=== PATIENT | male | born 1945 | race Caucasian/White ===

== ENCOUNTER → 2025-05-15 | Outpatient (CLI) | payer MEDICARE, SELFPAY ==
--- NOTE | 2025-05-15 08:19 | CT_ITS ---
PROCEDURE: CHEST WITHOUT CONTRAST 05/15/2025 REASON FOR EXAM: FOLLOW UP TREATED LUNG CANCER TECHNIQUE: Chest CT without contrast. Coronal and Sagittal reconstruction series were provided. One or more dose reduction techniques were used (e.g., Automated exposure control, adjustment of the mA and/or kV according to patient size, use of iterative reconstruction technique RADIATION DOSE SUMMARY: DLP: 596.90 mGycm COMPARISON: CT chest dated 07/10/2024 and PET-CT dated February 06, 2025 FINDINGS: Hardware: Status post median sternotomy for CABG. Lymph nodes: Shotty mediastinal lymph nodes appear stable since previous exam. These are not pathologically enlarged by size criteria. Heart and Vasculature: Coronary arterial calcifications status post median sternotomy for CABG. Atherosclerosis of the aorta. No dissection or aneurysm. No pericardial effusion. Lungs and Airways: Emphysematous changes of the lung. Continued interval decrease in the peripheral 6 mm nodule in the right upper lobe with adjacent patchy airspace disease likely related to atelectasis or postradiation change. Reticular nodular opacity seen in the periphery of the lung consistent with underlying interstitial lung disease. No new pulmonary nodule seen. Pleura: No pneumothorax or effusion. Upper Abdomen: Unremarkable appearance of the liver. Calcified granulomata in the spleen. The adrenal glands pancreas and gallbladder normal. No retroperitoneal lymphadenopathy. No bowel obstruction. Osseous structures are intact. Bones: No destructive process CT/Chest without Contrast IMPRESSION: Significant interval decrease in the size of the nodule in the right upper lobe with adjacent parenchymal opacities new since previous exam and most likely related to post radiation change. Reading Location: [id number]
--- NOTE | 2025-05-15 08:19 | CT_ITS ---
PROCEDURE: CT SOFT TISSUE NECK WITHOUT CONTRAST 05/15/2025 REASON FOR EXAM: FOLLOW UP TREATED LUNG CANCER WITH NECK LN TECHNIQUE: Procedure Code: CTNE Modality: CT Procedure: SOFT TISSUE NECK WITHOUT CONTR One or more dose reduction techniques were used (e.g., Automated exposure control, adjustment of the mA and/or kV according to patient size, use of iterative reconstruction technique). RADIATION DOSE SUMMARY: DLP: 939.48 mGycm COMPARISON: Correlation with PET-CT 02/06/2025. CT chest 05/15/2025. FINDINGS: Nodular densities in the visualized posterior right upper lobe are redemonstrated with marginal subpleural reticular fibrotic changes, likely sequelae of radiation treatment. Stable compared with the most recent chest CT; see separate thorax and PET-CT reports for further details. No enlarged or morphologically suspicious cervical or upper mediastinal lymph nodes. No mass lesion. No active inflammatory process or soft tissue edema. The airway is widely patent and midline. Unremarkable orbital contents, with prior cataract surgery. Major salivary glands are normal and symmetric in appearance. Unremarkable thyroid. Atherosclerotic plaque at the carotid artery bifurcations and along the aortic arch. No acute or aggressive osseous abnormality. Sternotomy wires. Well-aerated paranasal sinuses and bilateral mastoid air cells. Mild multilevel degenerative changes of the cervicothoracic spine. CT/Soft Tissue Neck without Contr IMPRESSION: No evidence of recurrent malignancy in the neck. No lymphadenopathy. Stable nodular densities and postradiation subpleural reticular/fibrotic change s in the imaged right upper lobe. See separate thorax and PET-CT reports for further details. Reading Location: [facility]
--- OUTSIDE RECORDS SUMMARY | 2025-05-15 08:35 | XMS RPT_ITS | CCD ---
Author Organization [facility] Care Team Providers Care Edge Banding Off Bearer Name Role Phone MARLIN LANCASTER DO Primary Care Physician [phone] DAMARIS FOSTER DO Attending Unavailable MARLIN LANCASTER DO Primary Care Unavailable REILLY GUILLERMO Attending Unavailab le ANISHA RIOS, MARLIN Primary Care Unavailable REILLY GUILLERMO Attending Unavailab MARLIN Smith DO Primary Care Unavailable REILLY GUILLERMO Attending Unavailab MARLIN Smith DO Primary Care Unavailable CRISTIAN RIOS, DR OCAMPO Attending Unavailable MARLIN LANCASTER DO Primary Care Unavailable CRISTIAN RIOS, DR OCAMPO Attending Unavailable MARLIN LANCASTER DO Primary Care Unavailable Nii Rounding Nurse, Amos Unavailable Afia labvirgie Unavailable Primary Care Provider Unavailabl e MARLIN LANCASTER DO Primary Care Unavailable MARLIN LANCASTER DO Attending Unavailable MARLIN LANCASTER DO Primary Care Unavailable QIAN FAY MD, I Admitting Unavailable QIAN FAY MD, I Consulting Unavailable SUMEET MATOS, QIAN Haddad Attending Unavailable CATRACHITO ROBLEDO DO Consulting Unavailable NISH MARTINEZ MD Consulting Unavailable MARLIN LANCASTER DO Primary Care Unavailable QIAN FAY MD, I Attending Unavailable MARLIN LANCASTER DO Primary Care Unavailable MARLIN LANCASTER DO Attending Unavailable Anisha NOLEN DO, Michael A Primary Care Provider [phone] Bria Liu DO Unavailable [phone] Reilly Childs CNP Unavailable MARLIN LANCASTER IV Primary Care Unavailable YORDY VELAZQUEZ Attending Unavailable YORDY VELAZQUEZ Attending Unavailable Dr. Marlin Lancaster DO Primary Care Provider [phone] Dr. Bria Liu DO Attending Provider Dr. Bria Liu DO Referring Provider Dr. Marlin Lancaster DO Referring Provider [phone] Bria Liu Attending Unavailable Halko, Marlin Primary Care Unavailable Jack, Bria Attending Unavailable Jack, Bria Referring Unavailable Halko, Marlin Primary Care Unavailable Jack, Bria Attending Unavailable Halko, Marlin Primary Care Unavailable Halko, Marlin Referring Unavailable Jack, Bria Attending Unavailable Halko, Marlin Primary Care Unavailable Halko, Marlin Referring Unavailable Jack, Bria Referring Unavailable Jakc, Bria Attending Unavailable Halko, Marlin Primary Care Unavailable Jack, Bria Attending Unavailable Jack, Bria Referring Unavailable Halko, Marlin Primary Care Unavailable Jack, Bria Attending Unavailable Halko, Marlin Primary Care Unavailable Halko, Marlin Referring Unavailable Jack, Bria Attending Unavailable Halko, Marlin Referring Unavailable Halko, Marlin Primary Care Unavailable Jack, Bria Attending Unavailable Halko, Marlin Referring Unavailable Halko, Marlin Primary Care Unavailable Jack, Bria Attending Unavailable Halko, Marlin Primary Care Unavailable Morenita Stinson Attending Unavailable Halko, Marlin Primary Care Unavailable Jack, Bria Attending Unavailable Jack, Bria Referring Unavailable Halko, Marlni Primary Care Unavailable Jack, Bria Attending Unavailable Jack, Bria Referring Unavailable Halko, Marlin Primary Care Unavailable Jack, Bria Attending Unavailable Jack, Bria Referring Unavailable Halko, Marlin Primary Care Unavailable Jack, Bria Attending Unavailable Halko, Marlin Primary Care Unavailable HALKO DO, MARLIN Primary Care Unavailable HALKO DO, MARLIN Attending Unavailable REILLY GUILLERMO Attending Unavailab le HALKO DO, MARLIN Primary Care Unavailable HALKO DO, MARLIN Primary Care Unavailable HALKO DO, MARLIN Attending Unavailable HALKO DO, MARLIN Primary Care Unavailable LINK PERRY MD Attending Unavailable HALKO DO, MARLIN Primary Care Unavailable HALKO DO, MARLIN Attending Unavailable HALKO DO, MARLIN Primary Care Unavailable BRIA LIU DO Attending Unavailable HALKO DO, MARLIN Attending Unavailable HALKO DO, MARLIN Primary Care Unavailable HALKO DO, MARLIN Primary Care Unavailable HALKO DO, MARLIN Attending Unavailable Allergies Allergy Classification Reported Allergen(s) Allergy Type Date of Onset Reaction(s) Facility (20 sources) Contrast media; Translations: [contrast media (iodine-based)] Drug allergy Seizure [facility] (5 sources) Iodine; Translations: [IODINE] Drug Allergy 5 Other: See Comments [facility] (1 source) Triiodobenzoic Acids Allergy to substance 5 seizures [facility] (1 source) Iodinated Contrast Media Drug allergy (disorder) 5 [facility] Repository Medications Current Medications Medication Drug Class(es) Dates Sig (Normalized) Sig (Original) amiodarone hydrochloride 200 mg oral tablet (20 sources) Antiarrhythmic Start: 03-20-2025 amiodarone 200 mg oral tablet Dose : 200 mg = 1 tab(s), Oral, qDay, # 90 tab(s), 3 Refill(s), Pharmacy: [facility]/pharmacy #[id number], 168, cm, 03/20/25 8:49:00 EDT, Height, kg, 03/20/25 8:49:00 EDT, Dosing Weight Start Date: 03/20/25 Status: Ordered Quantity: 90.0 Unit: tab(s) Repeat number: 4 Start: 04-19-2024 take 1 tablet by gustavo once daily Amiodarone 200 mg tablet Active 200 mg PO daily September 18, 2024 1:00am Start: 05-07-2023 amiodarone 200 mg oral tablet Dose : 200 mg = 1 tab(s), Oral, qDay, # 90 tab(s), 3 Refill(s), Pharmacy: [facility] #[id number], 167.6, cm, 02/24/23 10:18:00 EDT, Height, kg, 02/24/23 10:18:00 EDT, Dosing Weight Start Date: 05/07/23 Status: Ordered Start: 09-22-2022 amiodarone 200 mg oral tablet Dose : 200 mg = 1 tab(s), Oral, qDay, # 60 tab(s), 3 Refill(s), Pharmacy: [facility] #[id number], 169, cm, 09/22/22 9:22:00 EST, Height Start Date: 09/22/22 Status: Ordered amLODIPine 5 mg oral tablet (6 sources) Dihydropyridine Calcium Channel Negar Start: 09-10-2021 Norvasc 5 mg oral tablet Dose : 5 mg = 1 tab(s), Oral, qDay, # 90 tab(s), 3 Refill(s), [facility] [address] 167.6, cm, 09/10/21 8:56:00 EST, Height, kg, 09/10/21 8:56:00 EST, Dosing Weight Start Date: 09/10/21 Status: Ordered aspirin 81 mg delayed release oral tablet (20 sources) Platelet Aggregation Inhibitor, Nonsteroidal Anti-inflammatory Drug Start: 07-14-2019 take 1 capsule by mouth every other day aspirin 81 mg cap Take 81 mg by mouth every other day. 07/14/2019 Active Start: 07-14-2019 aspirin 81 mg oral delayed release tablet Dose : 81 mg = 1 tab(s), Oral, Every other day, # 30 tab(s), 0 Refill(s) Start Date: 07/14/19 Status: Ordered Quantity: 30.0 Unit: tab(s) Repeat number: 1 Start: 07-14-2019 aspirin 81 mg oral delayed release tablet Dose : 81 mg = 1 tab(s), Oral, qDay, # 30 tab(s), 0 Refill(s) Start Date: 07/14/19 Status: Ordered carvedilol 12.5 mg oral tablet (6 sources) alpha-Adrenergic Negar, beta-Adrenergic Negar Start: 12-23-2021 carvedilol 12.5 mg oral tablet Dose : 6.25 mg = 0.5 tab(s), Oral, BID, # 90 tab(s), 3 Refill(s), Pharmacy: [facility] [address] 169.4, cm, 12/23/21 9:46:00 EDT, Height, kg, 12/23/21 9:46:00 EDT, Dosing Weight Start Date: 12/23/21 Status: Ordered Start: 12-23-2020 carvedilol 12. 5 mg oral tablet Dose : 6.25 mg = 0.5 tab(s), Oral, BID, # 90 tab(s), 3 Refill(s), Pharmacy: [facility] [address] 167.6, cm, 12/04/20 18:05:00 EDT, Height, kg, 12/04/20 18:05:00 EDT, Dosing Weight Start Date: 12/23/20 Status: Ordered 24 hr dilTIAZem hydrochloride 180 mg extended release oral capsule (1 source) Calcium Channel Negar Start: 09-13-2022 Cardizem CD 180 mg/2 4 hours oral capsule, extended release Dose : 180 mg = 1 cap(s), Oral, qDay, # 30 cap(s), 0 Refill(s), [facility][id number], 167.6, cm, 09/11/22 16:22:00 EST, Height Start Date: 09/13/22 Status: Ordered doxycycline hyclate 100 mg oral capsule (1 source) Tetracycline-class Drug Start: 08-10-2022 End: 08-20-2022 doxycycline hyclate 100 mg oral capsule Dose : 100 mg = 1 cap(s), Oral, BID, X 10 day(s), # 20 cap(s), 0 Refill(s), 08/20/22 11:22:00 EST, [facility][id number], 170, cm, 08/10/22 10:48:00 EST, Height, 74.7 Start Date: 08/10/22 Stop Date: 08/20/22 Status: Ordered meclizine hydrochloride 25 mg oral tablet (6 sources) Antiemetic Start: 09-10-2021 meclizine 25 m g oral tablet Dose : 25 mg = 1 tab(s), Oral, TID, PRN as needed for dizziness, # 30 tab(s), 0 Refill(s) Start Date: 09/10/21 Status: Ordered pravastatin sodium 40 mg oral tablet (20 sources) HMG-CoA Reductase Inhibitor Start: 09-30-2023 pravastatin 40 mg oral tablet Dose : 40 mg = 1 tab(s), Oral, qHS, # 90 tab(s), 3 Refill(s), Pharmacy: [facility]/pharmacy #[id number], 167.6, cm, 09/19/24 11:53:00 EST, Height, kg, 09/19/24 11:53:00 EST, Dosing Weight Start Date: 09/19/24 Status: Ordered Quantity: 90.0 Unit: tab(s) Repeat number: 4 Start: 09-22-2022 pravastatin 40 mg oral tablet Dose : 40 mg = 1 tab(s), Oral, qDay, # 90 tab(s), 3 Refill(s), [facility] #[id number], 169, cm, 09/22/22 9:22:00 EST, Height, kg, 09/22/22 9:22:00 EST, Dosing Weight Start Date: 09/22/22 Status: Ordered Start: 09-10-2021 pravastatin 40 mg oral tablet Dose : 40 mg = 1 tab(s), Oral, qDay, # 90 tab(s), 3 Refill(s), [facility]acy: [facility] 167.6, cm, 09/10/21 8:56:00 EST, Height, kg, 09/10/21 8:56:00 EST, Dosing Weight Start Date: 09/10/21 Status: Ordered warfarin sodium 2 mg oral tablet (20 sources) Vitamin K Antagonist Start: 11-17-2022 warfarin 2 mg oral tablet Dose : 1 mg = 0.5 tab(s), Oral, Wednesday & Wednesday, TAKE 1 TABLET BY MOUTH EVERY DAY, # 90 EA, 3 Refill(s), Pharmacy: [facility]/pharmacy #[id number], 167.6, cm, 12/26/24 10:08:00 EDT, Height, kg, 12/26/24 10:08:00 EDT, Dosing Weight Start Date: 02/28/25 Status: Ordered Quantity: 90.0 Unit: EA Repeat number: 4 Completed/Discontinued Medications Medication Drug Class(es) Dates Sig (Normalized) Sig (Original) acetaminophen 325 mg / HYDROcodone bitartrate 5 mg oral tablet (2 sources) Opioid Agonist Start: 09-18-2024 End: 09-20-2024 Hydrocodone-Acetami nophen 5-325 mg tablet Discontinued 1 {tbl} PO EVERY 6 HOURS as needed September 18, 2024 1:00am September 20, 2024 10:53am Start: 09-09-2024 End: 09-12-2024 [place] 325- 5 mg oral tablet Dose = 1 tab(s), Oral, q6hr, PRN Pain, scale 4-6, X 3 day(s), # 15 tab(s), 0 Refill(s), Pharmacy: [facility]/pharmacy #[id number], Postoperative pain, 167.6, cm, 09/08/24 12:31:00 EST, Height, 75.7, kg, 09/08/24 12:31:00 EST, Dosing Weight Start Date: 09/09/24 Stop Date: 09/12/24 Status: Ordered Quantity: 15.0 Unit: tab(s) Repeat number: 1 Indication: Other acute postprocedural pain Problems Problem Classification Problem Date Documented Date Episodic/Chronic Abdominal hernia (20 sources) Umbilical hernia; Translations: [Right inguinal hernia ] 04-12-2020 Episodic Aortic; peripheral; and visceral artery aneurysms (17 sources) Abdominal aortic aneurysm 07-02-2022 Chronic Appendicitis and other appendiceal conditions (17 sources) Appendicitis 01-17-2015 Episodic Cancer of bronchus; lung (14 sources) Primary malignant neoplasm of lung; Translations: [Malignant neoplasm of right upper lobe of lung] Onset: 5 09-19-2024 Chronic Cardiac dysrhythmias (20 sources) Paroxysmal atrial fibrillation; Translations: [Atrial flutter] Onset: 5 08-10-2022 Chronic Coagulation and hemorrhagic disorders (16 sources) Hypercoagulability state 02-08-2023 Chronic Conditions associated with dizziness or vertigo (20 sources) Meniere's disease 12-23-2021 Chronic Conditions associated with dizziness or vertigo (20 sources) Vertigo; Translations: [Benign paroxysmal positional vertigo] 10-08-2021 Episodic Conduction disorders (17 sources) Cardiac pacemaker in situ 10-08-2021 Chronic Congestive heart failure; nonhypertensive (11 sources) Chronic diastolic heart failure 02-08-2023 Chronic Coronary atherosclerosis and other heart disease (20 sources) Coronary arteriosclerosis; Translations: [Coronary arteriosclerosis in beaver artery] 03-05-2020 Chronic Comment on above: Stable. EKG shows no acute changes. Disorders of lipid metabolism (20 sources) Mixed hyperlipidemia 03-05-2020 Chronic Comment on above: Stable. Tolerating p ravastatin. LDL goal is less than 70. Essential hypertension (7 sources) Hypertensive disorder; Translations: [Essential (primary) hypertension] Onset: 5 07-14-2019 Chronic Heart valve disorders (16 sources) Mitral valve regurgitation 02-08-2023 Chronic Hypertension with complications and secondary hypertension (20 sources) Hypertensive heart disease with congestive heart failure; Translations: [Hypertensive left ventricular hypertrophy] 02-08-2023 Chronic Malaise and fatigue (17 sources) Asthenia 03-05-2020 Episodic Comment on above: Patient woke up toda y just feeling weak and tired. I question whether he is getting a virus. EKG is stable. I have not found any acute cardiac conditions on exam today. Other aftercare (2 sources) Post-discharge follow-up 09-21-2022 Episodic Other aftercare (1 source) predatory animal exterminator (current) use of anticoagulants; Translations: [predatory animal exterminator (current) use of anticoagulants] Onset: 5 Episodic Other aftercare (1 source) Other custodial (current) drug therapy; Translations: [Other continuous churn buttermaker (current) drug therapy] Onset: 5 Episodic Other aftercare (1 source) Encounter for therapeutic drug level monitoring; Translations: [Encounter for therapeutic drug level monitoring] Onset: 5 Episodic Other and ill-defined heart disease (16 sources) Left ventricular hypertrophy 02-08-2023 Chronic Other circulatory disease (17 sources) Abnormal chest sounds 08-10-2022 Episodic Other circulatory disease (1 source) Disorder of respiratory system; Translations: [Other specified symptoms and signs involving the circulatory and respiratory systems] Episodic Other ear and sense organ disorders (20 sources) Hearing loss of left ear 10-08-2021 Chronic Other ear and sense organ disorders (20 sources) Impacted cerumen 10-08-2021 Episodic Other ear and sense organ disorders (20 sources) Tinnitus 07-14-2019 Episodic Other injuries and conditions due to external causes (5 sources) At low risk for fall 12-23-2021 Episodic Other injuries and conditions due to external causes (1 source) History of fall; Translations: [History of falling] Episodic Other lower respiratory disease (1 source) Dyspnea; Translations: [Shortness of breath] Episodic Other lower respiratory disease (14 sources) Dyspnea on exertion 01-27-2024 Episodic Other nervous system disorders (1 source) Abnormal gait; Translations: [Other abnormalities of gait and mobility] Episodic Other nervous system disorders (14 sources) Impairment of balance 01-27-2024 Episodic Other nervous system disorders (1 source) Postoperative pain ; Translations: [Other acute postprocedural pain] Onset: 5 Episodic Other nutritional; endocrine; and metabolic disorders (18 sources) Overweight 06-09-2022 Episodic Other nutritional; endocrine; and metabolic disorders (7 sources) Overweight in adulthood with body mass index of 25 or more but less than 30 02-08-2023 Episodic Other screening for suspected conditions (not mental disorders or infectious disease) (20 sources) Viral screening status; Translations: [Raised TSH level] Onset: 5 12-23-2021 Episodic Other upper respiratory infections (3 sources) Bacterial sinusitis 08-10-2022 Chronic Other upper respiratory infections (8 sources) Acute sinusitis 07-14-2019 Episodic Peripheral and visceral atherosclerosis (20 sources) Atherosclerosis of aorta; Translations: [Peripheral vascular disease] 02-08-2023 Chronic Residual codes; unclassified (20 sources) Obstructive sleep apnea syndrome 03-05-2020 Chronic Comment on above: Patient has symptoms of sleep apnea including witnessed apnea, snoring, daytime sleepiness, and high blood pressure. Patient would like to be checked for sleep apnea. NO MACHINE USE Residual codes; unclassified (12 sources) Screening due 09-21-2022 Episodic Screening and history of mental health and substance abuse codes (14 sources) Tobacco use and exposure - finding 01-27-2024 Chronic Secondary malignancies (7 sources) Secondary malignant neoplasm of lymph nodes of neck; Translations: [Secondary and unspecified malignant neoplasm of lymph nodes of head, face and neck] Onset: 5 10-06-2024 Chronic Secondary malignancies (1 source) Secondary and unspecified malignant neoplasm of lymph nodes of head, face and neck; Translations: [Secondary and unspecified malignant neoplasm of lymph nodes of head, face and neck] Onset: 5 Chronic Syncope (16 sources) Near syncope 02-08-2023 Episodic Unclassified (20 sources) Patient encounter status 12-23-2021 Unclassified (18 sources) Medication refused 06-09-2022 Unclassified (20 sources) Drug therapy finding 02-08-2023 Unclassified (3 sources) 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 Test Name Value Interpretation Reference Range Facility .Auto Diffon 03-20-2025 Basophil, Absolute 0.1 10 3/mcL Normal 0.0-0.3 [facility] Comment on above: Performed By: #### A DIFF, GFR, PSA, CBC, A1C, LIPID, CMP, ANEU #### [address] [address] Basophils/100 WBC (Bld) 0.9 % Normal 0.0-2.5 [facility] Comment on above: Performed By: #### A DIFF, GFR, PSA, CBC, A1C, LIPID, CMP, ANEU #### [address] [address] Eosinophil, Absolute 0.0 10 3/mcL Normal 0.0-0.7 [facility] Comment on above: Performed By: #### A DIFF, GFR, PSA, CBC, A1C, LIPID, CMP, ANEU #### [address] [address] Eosinophils/100 WBC (Bld) 0.5 % Normal 0.0-6.0 [facility] Comment on above: Performed By: #### A DIFF, GFR, PSA, CBC, A1C, LIPID, CMP, ANEU #### [address] [address] Lymphocyte, Absolute 1.7 10 3/mcL Normal 0.9-4.3 [facility] Comment on above: Performed By: #### A DIFF, GFR, PSA, CBC, A1C, LIPID, CMP, ANEU #### [address] [address] Lymphocytes/100 WBC (Bld) 28.4 % Normal 20.0-40.0 [facility] Comment on above: Performed By: #### A DIFF, GFR, PSA, CBC, A1C, LIPID, CMP, ANEU #### [address] [address] Monocyte, Absolute 0.6 10 3/mcL Normal 0.1-1.4 [facility] Comment on above: Performed By: #### A DIFF, GFR, PSA, CBC, A1C, LIPID, CMP, ANEU #### [address] [address] Monocytes/100 WBC (Bld) 10.7 % Normal 2.0-13.0 [facility] Comment on above: Performed By: #### A DIFF, GFR, PSA, CBC, A1C, LIPID, CMP, ANEU #### [address] [address] Neutrophils/100 WBC (Bld) 59.5 % Normal 50.0-75.0 [facility] Comment on above: Performed By: #### A DIFF, GFR, PSA, CBC, A1C, LIPID, CMP, ANEU #### [address] [address] .GFRon 03-20-2025 Estimated Glomerular Filtration Rate 92 ml/min/1.73sqm Normal [facility] Comment on above: Result Comment: Stages of Chronic Kidney Disease (CKD) Stage Description eGFR(ml/min/1.73 sq.m.) CKD 1 Normal kidney function or >=90 normal kindney function with possible kidney damage (ex. Proteinuria) CKD 2 Kidney damage with mild loss 60-89 of kidney function CKD 3a Mild to moderate loss of kidney 45-59 function CKD 3b Moderate to severe loss of 30-44 of kindey function CKD 4 Severe loss of kidney function 15-29 CKD 5 Kidney failure <15 Note: (go live 2024) the eGFR calculation was updated to the 2020 CKD-EPI creatinine equation without a race factor to calculate the eGFR results. Performed By: #### A DIFF, GFR, PSA, CBC, A1C, LIPID, CMP, ANEU #### [address] [address] .NEUABSon 03-20-2025 Neutrophil, Absolute 3.6 10 3/mcL Normal 2.3-8.1 [facility] Comment on above: Performed By: #### A DIFF, GFR, PSA, CBC, A1C, LIPID, CMP, ANEU #### [address] [address] A1Con 03-20-2025 Glucose [Mass/Vol] 108 mg/dL Normal [facility] Comment on above: Result Comment: Marlyn mated Average Glucose calculated by equation ((28.7xA1C)-46.7) Estimated average glucose (eAG) is a calculated value from Hemoglobin A1C and is hotel services sales representative of the average blood glucose level in the last 2-3 month period. Normal range: less than 114 mg/dL Performed By: #### A DIFF, GFR, PSA, CBC, A1C, LIPID, CMP, ANEU #### [address] [address] HbA1c (Bld) [Mass fraction] 5.4 % Normal 4.3-6.4 [facility] Comment on above: Performed By: #### A DIFF, GFR, PSA, CBC, A1C, LIPID, CMP, ANEU #### [address] [address] CBCon 03-20-2025 Erythrocyte distribution width (RBC) [Ratio] 14.0 % Normal 11.5-15.5 [facility] Comment on above: Performed By: #### A DIFF, GFR, PSA, CBC, A1C, LIPID, CMP, ANEU #### [place] [address] Hematocrit (Bld) [Volume fraction] 46.9 % Normal 40.0-52.0 [facility] Comment on above: Performed By: #### A DIFF, GFR, PSA, CBC, A1C, LIPID, CMP, ANEU #### [place] [address] Hgb 15.9 G/dL Normal 13.0-17.5 [facility] Comment on above: Performed By: #### A DIFF, GFR, PSA, CBC, A1C, LIPID, CMP, ANEU #### [address] [address] MCH (RBC) [Entitic mass] 32.4 pg Normal 27.0-33.0 [facility] Comment on above: Performed By: #### A DIFF, GFR, PSA, CBC, A1C, LIPID, CMP, ANEU #### [address] [address] MCHC 33.8 G/dL Normal 32.0-36.0 [facility] Comment on above: Performed By: #### A DIFF, GFR, PSA, CBC, A1C, LIPID, CMP, ANEU #### [address] [address] MCV (RBC) [Entitic vol] 95.7 fL Normal 81.0-100.0 [facility] Comment on above: Performed By: #### A DIFF, GFR, PSA, CBC, A1C, LIPID, CMP, ANEU #### [address] [address] Platelet 128 10 3/mcL Low 150-450 [facility] Comment on above: Performed By: #### A DIFF, GFR, PSA, CBC, A1C, LIPID, CMP, ANEU #### [address] [address] Platelet mean volume (Bld) [Entitic vol] 10.6 fL High 6.4-10.5 [facility] Comment on above: Performed By: #### A DIFF, GFR, PSA, CBC, A1C, LIPID, CMP, ANEU #### [address] [address] RBC 4.90 10 6/mcL Normal 4.50-6.00 [facility] Comment on above: Performed By: #### A DIFF, GFR, PSA, CBC, A1C, LIPID, CMP, ANEU #### [address] [address] WBC 6.0 10 3/mcL Normal 4.5-10.8 [facility] Comment on above: Performed By: #### A DIFF, GFR, PSA, CBC, A1C, LIPID, CMP, ANEU #### [address] [address] CMPon 03-20-2025 Albumin Level 3.8 G/dL Normal 3.4-4.8 [facility] Comment on above: Performed By: #### A DIFF, GFR, PSA, CBC, A1C, LIPID, CMP, ANEU #### [address] [address] Albumin/Globulin [Mass ratio] 1.0 {ratio} Low 1.1-2.5 [facility] Comment on above: Performed By: #### A DIFF, GFR, PSA, CBC, A1C, LIPID, CMP, ANEU #### [address] [address] ALP [Catalytic activity/Vol] 69 U/L Normal 40-135 [facility] Comment on above: Performed By: #### A DIFF, GFR, PSA, CBC, A1C, LIPID, CMP, ANEU #### [address] [address] ALT [Catalytic activity/Vol] 20 U/L Normal 16-63 [facility] Comment on above: Performed By: #### A DIFF, GFR, PSA, CBC, A1C, LIPID, CMP, ANEU #### [address] [address] AST [Catalytic activity/Vol] 17 U/L Normal 10-40 [facility] Comment on above: Performed By: #### A DIFF, GFR, PSA, CBC, A1C, LIPID, CMP, ANEU #### [address] [address] Bili Total 0.6 mg/dL Normal 0.2-1.0 [facility] Comment on above: Result Comment: Use of this assay is not recommended for patients undergoing treatment with eltrombopag due to the potential for falsely elevated results. Performed By: #### A DIFF, GFR, PSA, CBC, A1C, LIPID, CMP, ANEU #### [address] [address] BUN/Creatinine Ratio 14 ratio Normal 7-27 [facility] Comment on above: Performed By: #### A DIFF, GFR, PSA, CBC, A1C, LIPID, CMP, ANEU #### [address] [address] Calcium [Mass/Vol] 8.9 mg/dL Normal 8.4-10.2 [facility] Comment on above: Performed By: #### A DIFF, GFR, PSA, CBC, A1C, LIPID, CMP, ANEU #### [address] [address] Chloride [Moles/Vol] 103 mmol/L Normal 98-107 [facility] Comment on above: Performed By: #### A DIFF, GFR, PSA, CBC, A1C, LIPID, CMP, ANEU #### [address] [address] CO2 [Moles/Vol] 31 mmol/L Normal 23-31 [facility] [facility] Comment on above: Performed By: #### A DIFF, GFR, PSA, CBC, A1C, LIPID, CMP, ANEU #### [address] [address] Creatinine [Mass/Vol] 0.79 mg/dL Normal 0.67-1.17 [facility] Comment on above: Performed By: #### A DIFF, GFR, PSA, CBC, A1C, LIPID, CMP, ANEU #### [address] [address] Electrolyte Balance 6.0 mEq/L Normal 4.0-15.0 [facility] Comment on above: Performed By: #### A DIFF, GFR, PSA, CBC, A1C, LIPID, CMP, ANEU #### [address] [address] Globulin 3.7 G/dL Normal 2.7-4.4 [facility] Comment on above: Performed By: #### A DIFF, GFR, PSA, CBC, A1C, LIPID, CMP, ANEU #### [address] [address] Glucose [Mass/Vol] 86 mg/dL Normal 83-110 [facility] Comment on above: Performed By: #### A DIFF, GFR, PSA, CBC, A1C, LIPID, CMP, ANEU #### [address] [address] Potassium [Moles/Vol] 4.3 mmol/L Normal 3.5-5.1 [facility] Comment on above: Performed By: #### A DIFF, GFR, PSA, CBC, A1C, LIPID, CMP, ANEU #### [address] [address] Sodium [Moles/Vol] 140 mmol/L Normal 136-145 [facility] Comment on above: Performed By: #### A DIFF, GFR, PSA, CBC, A1C, LIPID, CMP, ANEU #### [address] [address] Total Protein 7.5 G/dL Normal 6.4-8.2 [facility] Comment on above: Performed By: #### A DIFF, GFR, PSA, CBC, A1C, LIPID, CMP, ANEU #### [address] [place], [place] [address] Urea nitrogen [Mass/Vol] 11 mg/dL Normal 7-18 [facility] Comment on above: Performed By: #### A DIFF, GFR, PSA, CBC, A1C, LIPID, CMP, ANEU #### [id number] [place], [place] [address] LABORATORYOrdered By: SYSTEM SYSTEM on 03-20-2025 Albumin BCP dye [Mass/Vol] 3.8 G/dL Normal 3.4 - 4.8 G/dL AO ADM SS Albumin/Globulin [Mass ratio] 1.0 {ratio} Low 1.1 - 2.5 ratio AO ADM SS ALP [Catalytic activity/Vol] 69 U/L Normal 40 - 135 U/L AO ADM SS ALT With P-5'-P [Catalytic activity/Vol] 20 U/L Normal 16 - 63 U/L AO ADM SS AST With P-5'-P [Catalytic activity/Vol] 17 U/L Normal 10 - 40 U/L AO ADM SS Basophils (Bld) [#/Vol] 0.1 103/mcL Normal 0.0 - 0.3 10^3/mcL AO Workflow SS Basophils/100 WBC (Bld) 0.9 % Normal 0.0 - 2.5 % AO Workflow SS Bilirubin [Mass/Vol] 0.6 mg/dL Normal 0.2 - 1 .0 mg/dL AO ADM SS Comment on above: Interpretive Data: U se of this assay is not recommended for patients undergoing treatment with eltrombopag due to the potential for falsely elevated results. Calcium [Mass/Vol] 8.9 mg/dL Normal 8.4 - 10. 2 mg/dL AO ADM SS Chloride [Moles/Vol] 103 mmol/L Normal 98 - 10 7 mmol/L AO ADM SS CO2 [Moles/Vol] 31 mmol/L Normal 23 - 31 mmol/L AO ADM SS Creatinine [Mass/Vol] 0.79 mg/dL Normal 0.67 - 1.17 mg/dL AO ADM SS Electrolyte Balance 6.0 mEq/L Normal 4.0 - 15 .0 mEq/L AO ADM SS Eosinophil, Absolute 0.0 103/mcL Normal 0.0 - 0 .7 10^3/mcL AO Workflow SS Eosinophils/100 WBC (Bld) 0.5 % Normal 0.0 - 6.0 % AO Workflow SS Erythrocyte distribution width (RBC) [Ratio] 14.0 % Normal 11.5 - 15.5 % AO Workflow SS Estimated Glomerular Filtration Rate 92 ml/min/1.73sqm Invalid Interpretation Code AO Chemistry S Comment on above: Interpretive Data: Stages of Chronic Kidney Disease (CKD) Stage Description eGFR(ml/min/1.73 sq.m.) CKD 1 Normal kidney function or >=90 normal kindney function with possible kidney damage (ex. Proteinuria) CKD 2 Kidney damage with mild loss 60-89 of kidney function CKD 3a Mild to moderate loss of kidney 45-59 function CKD 3b Moderate to severe loss of 30-44 of kindey function CKD 4 Severe loss of kidney function 15-29 CKD 5 Kidney failure <15 Note: (go live 2024) the eGFR calculation was updated to the 2020 CKD-EPI creatinine equation without a race factor to calculate the eGFR results. Globulin 3.7 G/dL Normal 2.7 - 4.4 G/dL AO ADM SS Glucose [Mass/Vol] 108 mg/dL Invalid Interpretation Code AO Chemistry S Comment on above: Interpretive Data: E stimated average glucose (eAG) is a calculated value from Hemoglobin A1C and is hotel services sales representative of the average blood glucose level in the last 2-3 month period. Normal range: less than 114 mg/dL Glucose [Mass/Vol] 86 mg/dL Normal 83 - 110 mg/dL AO ADM SS HbA1c (Bld) [Mass fraction] 5.4 % Normal 4.3 - 6.4 % AO ADM SS Hematocrit (Bld) [Volume fraction] 46.9 % Normal 40.0 - 52.0 % AO Workflow SS Hemoglobin (Bld) [Mass/Vol] 15.9 G/dL Normal 13.0 - 17.5 G/dL AO Workflow SS Lymphocytes (Bld) [#/Vol] 1.7 103/mcL Normal 0.9 - 4.3 10^3/mcL AO Workflow SS Lymphocytes/100 WBC (Bld) 28.4 % Normal 20.0 - 40.0 % AO Workflow SS MCH (RBC) [Entitic mass] 32.4 pg Normal 27.0 - 33.0 pg AO Workflow SS MCHC 33.8 G/dL Normal 32.0 - 36.0 G/dL AO Workflow SS MCV (RBC) [Entitic vol] 95.7 fL Normal 81.0 - 100.0 fL AO Workflow SS Monocytes (Bld) [#/Vol] 0.6 103/mcL Normal 0.1 - 1.4 10^3/mcL AO Workflow SS Monocytes/100 WBC (Bld) 10.7 % Normal 2.0 - 13.0 % AO Workflow SS Neutrophils (Bld) [#/Vol] 3.6 103/mcL Normal 2.3 - 8.1 10^3/mcL AO Workflow SS Neutrophils/100 WBC (Bld) 59.5 % Normal 50.0 - 75.0 % AO Workflow SS Platelet mean volume (Bld) [Entitic vol] 10.6 fL High 6.4 - 10.5 fL AO Workflow SS Platelets (Bld) [#/Vol] 128 103/mcL Low 150 - 450 10^3/mcL AO Workflow SS Potassium [Moles/Vol] 4.3 mmol/L Normal 3.5 - 5.1 mmol/L AO ADM SS Prostate specific Ag [Mass/Vol] 0.99 ng/mL Normal 0.00 - 4.00 ng/mL AO ADM SS Protein [Mass/Vol] 7.5 G/dL Normal 6.4 - 8.2 G/dL AO ADM SS RBC (Bld) [#/Vol] 4.90 106/mcL Normal 4.50 - 6.0 0 10^6/mcL AO Workflow SS Sodium [Moles/Vol] 140 mmol/L Normal 136 - 145 mmol/L AO ADM SS Urea nitrogen [Mass/Vol] 11 mg/dL Normal 7 - 18 mg/dL AO ADM SS Urea nitrogen/Creatinine [Mass ratio] 14 ratio Normal 7 - 27 ratio AO ADM SS WBC (Bld) [#/Vol] 6.0 103/mcL Normal 4.5 - 10.8 10^3/mcL AO Workflow SS LABORATORYOrdered By: Nader Blanton on 03-20-2025 Cholesterol [Mass/Vol] 160 mg/dL Normal 0 - 200 mg/dL AO ADM SS Comment on above: Interpretive Data: C holesterol Reference Interval: Less than 200 Desirable 200-239 Borderline high risk 240 and above High risk Cholesterol in HDL [Mass/Vol] 47 mg/dL Normal 40 - 60 mg/dL AO ADM SS Cholesterol in LDL [Mass/Vol] 88 mg/dL Normal 0 - 130 mg/dL AO ADM SS Triglyceride [Mass/Vol] 125 mg/dL Normal 0 - 150 mg/dL AO ADM SS Comment on above: Interpretive Data: T riglyceride Reference Interval: Less than 150 Normal 150-199 Borderline high risk 200-499 High risk 500 or higher Very high risk LIPIDon 03-20-2025 Cholesterol [Mass/Vol] 160 mg/dL Normal 0-200 [facility] Comment on above: Result Comment: Chol esterol Reference Interval: Less than 200 Desirable 200-239 Borderline high risk 240 and above High risk Performed By: #### A DIFF, GFR, PSA, CBC, A1C, LIPID, CMP, ANEU #### [address] [address] Cholesterol in HDL [Mass/Vol] 47 mg/dL Normal 40-60 [facility] Comment on above: Performed By: #### A DIFF, GFR, PSA, CBC, A1C, LIPID, CMP, ANEU #### [address] [address] Cholesterol in LDL [Mass/Vol] 88 mg/dL Normal 0-130 [facility] Comment on above: Performed By: #### A DIFF, GFR, PSA, CBC, A1C, LIPID, CMP, ANEU #### [address] [address] Triglyceride [Mass/Vol] 125 mg/dL Normal 0-150 [facility] Comment on above: Result Comment: Trig lyceride Reference Interval: Less than 150 Normal 150-199 Borderline high risk 200-499 High risk 500 or higher Very high risk Performed By: #### A DIFF, GFR, PSA, CBC, A1C, LIPID, CMP, ANEU #### [address] [address] PSAon 03-20-2025 Prostate Specific Antigen 0.99 ng/mL Normal 0.00-4.00 [facility] Comment on above: Performed By: #### A DIFF, GFR, PSA, CBC, A1C, LIPID, CMP, ANEU #### [facility] [address] [place], [place] [address] Radiation Oncology Visiton 0 02-12-2025 Radiation Oncology Visit [facility] [place] [address] OFFICE VISIT Date of Service: 02/12/25 1032 MR#: [id number] Acct: [id number] Name: CJ GONZALEZ Rep #: [id number] : 1945 From: Bria Jack DO Age/Sex: 79/M Location: [facility] Status: Signed Intake Vital Signs 12/19/24 11:35 02/12/25 10:40 Height 5 ft 6 in 5 ft 6 in Weight: 175 lb 3 oz 172 lb BMI 28.3 27.7 BP 147/76 H 122/64 H Blood Pressure Location Rt brachial Lt brachial Position Sitting Sitting Respiration 18 16 Pulse 54 L 54 L Pulse Source Monitor Monitor Temp 97.3 F L 97.3 F L Temperature Source Temporal Artery Temporal Artery Pulse Oximetry (%) 96 94 Oxygen Delivery Method room air room air Intake Visit Reasons: 2 MONTH LUNG, REVIEW PET Accompanied by: Is patient in pain?: No Allergies Iodinated Contrast Media Allergy (Severe, Verified 12/19/24 11:33) seizures Medications ???Medication ???Instructions ???Recorded ???Confirmed ???Type amiodarone 200 mg tablet 200 mg PO QDAY 09/18/24 02/12/25 H istory aspirin 81 mg tablet,delayed 81 mg PO QDAY 09/18/24 02/12/25 Hi story release pravastatin 40 mg tablet 40 mg PO QHS 09/18/24 02/12/25 His tory warfarin 2 mg tablet 2 mg PO QDAY 09/18/24 02/12/25 His tory Have you fallen in the past year?: No PFSH PFSH Medical History Emphysema lung COPD (chronic obstructive pulmonary disease) Atrial fibrillation Appendicitis Cataract Aortic aneurysm Hyperlipidemia Lung cancer Home Medications ???Medication ???Instructions ???Recorded ???Last Taken ???Type amiodarone 200 mg tablet 200 mg PO QDAY 09/18/24 Unknown Hi story aspirin 81 mg tablet,delayed 81 mg PO QDAY 09/18/24 Unknown His tory release pravastatin 40 mg tablet 40 mg PO QHS 09/18/24 Unknown Hist ory warfarin 2 mg tablet 2 mg PO QDAY 09/18/24 Unknown Hist ory Allergy/AdvReac Type Severity Reaction Status Date / Time Iodinated Contrast Media Allergy Severe seizures Verified 12/19/24 11:33 Family History Sister Melanoma Sister Breast cancer Sister Cancer LUNG Sister Cancer LUNG Father Cancer LUNG Sister Parkinson disease Mother Diabetes Surgical History Hx of appendectomy Aortocoronary bypass status Social History household members: spouse and children current occupational status: retired Smoking Status: Current every day smoker Diagnosis: Cj Gonzalez is a 79 year-old male diagnosed with 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 From - ??? 11/10/2024 he received lung SBRT to the primary disease. History of Present Illness: 07/10/2024: Patient completed low-dose screening CT of the chest without contrast.??? This demonstrated a spiculated 9 mm right upper lobe nodule, recommend PET scan.??? No other abnormalities appreciated. 07/25/2024: Patient completed PET scan.??? This demonstrated a hypermetabolic right upper lobe pulmonary lesion suspicious for malignancy.??? This measures 1.1 cm with a maximum SUV of 5.4.??? No hypermetabolic mediastinal adenopathy is noted.??? There is a right cervical chain lymph node measuring 8 mm with an SUV of 9.2.??? No other evidence of systemic disease. 08/03/2024: Patient completed ultrasound of the right neck.??? This demonstrated nonvisualization of the PET avid right level 4 cervical lymph node. 09/08/2024: Patient completed right neck level 4 lymph node biopsy which was consistent with metastatic adenocarcinoma.??? Also completed right neck selective neck dissection of level 4 which demonstrated metastatic mucinous adenocarcinoma involving 1 of 3 lymph nodes, positive lymph node measures 1.4 cm in size, no evidence of extranodal extension. 09/25/2024: Patient completed brain MRI with and without contrast.??? This demonstrated mild volume loss and ischemic changes but no evidence of metastatic disease. 09/26/2024: Patient completed PET scan.??? This demonstrated no interval increase in metabolic activity or size in the hypermetabolic posterior right upper lobe spiculated nodule compared to the prior study in June.??? No hypermetabolic adenopathy or distant metastatic disease is present. From - ??? 11/10/2024: received lung SBRT consisting of 5000 cGy delivered in 5 fractions. He was treated with a VMAT plan using 6 FFF MV photons. 02/06/2025: Pat (more content not included)... Normal [facility] PET/CT Tumor Base -Thigh Sub son 02-06-2025 PET/CT Tumor Base -Thigh Subs [facility] Imaging Services [address] [place], [place] [address] PET/CT Tumor Base -Thigh Subs MR#: [id number] Acct: [id number] Name: CJ GONZALEZ Rep #: [id number] : 1945 M 79 From: Driss Tao PCP: Dr. Marlin Lancaster, DO Status: REG RCR Study: PET/CT Tumor Base -Thigh Subs Date of Exam: Exam# [id number] Ordering Dr: Bria Liu DO PROCEDURE: PET/CT TUMOR BASE -THIGH SUBS 02/06/2025 REASON FOR EXAM: 79 y/o M with MALIGNANT OF LYMPH NODES history of right lung carcinoma. TECHNIQUE: Following the intravenous administration of radionucleotide, image acquisition on a dedicated PET/CT unit was performed at one hour post injection. A preliminary CT study encompassing the Skull base, neck, chest, abdomen, pelvis, and proximal thighs was performed for purposes of attenuation correction and anatomic localization. The proximal thighs were also included. The patient's blood glucose level was 78 mg/dL (allowable range: 50-180 mg/dL). RADIOPHARMACEUTICAL: 14.9 mCi 18F-FDG (Fluorodeoxyglucose F18) IV was injected into he patient. RADIATION DOSE SUMMARY: Effective Dose: Approximately 7 mSv for a standard whole-body PET scan Organ Doses: Varies by organ, with higher doses typically to the bladder, liver, and brain COMPARISON: COMPARISON FROM CT, PET OR OTHER PERTINENT EXAMS: PET-CT of 09/26/2024. FINDINGS: Physiologic uptake: There may be expected metabolic uptake within the brain, tongue and floor of the mouth and larynx/vocal cords, heart, rima (many normal individuals have hilar uptake in less than 3 nodes with mildly avid hilar nodes less than 2.7 SUV), liver and spleen, system, and GI tract and symmetric muscle uptake. FDG AVID AND NON-AVID LESIONS. Reported avid SUV values (g/mL*) are maximum SUV. NECK: There are no significant neck abnormalities. CHEST: Moderately severe coronary artery calcification is again seen. Chest wall- There are no significant chest wall abnormalities. Axilla- There are no significant axillary abnormalities. Lung parenchyma- Interval decrease in size of the previously noted posterior/peripheral right upper lobe nodule, currently measured at 6 mm. Significant interval decrease in SUV max is also noted, currently measured 1.5. This represents marked interval improvement. No new focus of abnormal activity is seen. Mediastinum-There are no significant hilar or mediastinal adenopathy. Pleura- There are no significant pleural abnormalities. ABDOMEN: Stable abdominal aortic aneurysm again noted. Stomach- No significant abnormalities. Liver- No significant abnormalities. Spleen- No significant abnormalities. Pancrease- No significant abnormalities. Kidneys- No significant abnormalities. Bowel- Normal bowel activity. Spine- No significant abnormalities. PELVIS: Bowel- Normal physiologic bowel activity is identified. Masses- There are no pelvic masses. Bones- Prominent degenerative changes of the spine are seen. With the use of bone window settings, there are no osteolytic or osteoblastic lesions. There are no FDG avid lesions within the visualized portion of the axial skeleton. PET/PET/CT Tumor Base -Thigh Subs IMPRESSION: FDG avid- Significant interval improvement in metabolic activity and (decreased) size of the previously noted right upper lobe posterior/peripheral nodule is seen. No new or worsened abnormality is noted. Other: 1. Stable abdominal aortic aneurysm. 2. Prominent degenerative changes of the spine. 3. Moderately severe coronary artery calcification is again noted Please note the low-dose CT scan was performed to facilitate PET image reconstruction and anatomic localization and does not replace a diagnostic CT. Any diagnostic CT requested and performed at the time of the PET will be reported separately. Reading Location: [address] CC: Dr. Marlin Lancaster DO; Dr. 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 There was no answer, a VM was left requesting a call back. DEMARCUS Briggs Amber, RN 12/25/2024 2:28 PM Signed Patient called back. Patient does not want to pursue immunotherapy. Patient is scheduled for a PET scan 01/[address] Liu on 01/12. DEMARCUS Briggs Paul A, DO 12/25/2024 3:55 PM Signed Please fax a copy of this note to Dr. Liu so that he is aware of the plan. DO Radha Scherer Melanie, LPN 12/25/2024 4:01 PM Signed A copy of this note faxed to Dr. Liu. 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 - pravastatin (PRAVACHOL) 40 mg tablet Take 40 mg by mouth daily at bedtime. - warfarin (COUMADIN) 2 mg tablet Take 2 mg by mouth once daily. - aspirin 81 mg cap Take 81 mg by mouth every other day. 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] 11/09/2024 Encounter Status:Closed by NIDIA BLAKE on 12/25/24 [facility] Radiation Oncology Visiton 0 12-19-2024 Radiation Oncology Visit [facility] [address] [place] [address] OFFICE VISIT Date of Service: 12/19/24 1130 MR#: [id number] Acct: [id number] Name: CJ GONZALEZ Rep #: [id number] : 1945 From: Bria Jack DO Age/Sex: 79/M Location: [facility] Status: Signed Intake Vital Signs 11/08/24 12:28 11/10/24 12:27 12/19/24 11:35 Height 5 ft 6 in 5 ft 6 in 5 ft 6 in Weight: 175 lb 3 oz BMI 28.3 BP 147/76 H Blood Pressure Location Rt brachial Position Sitting Respiration 18 Pulse 54 L Pulse Source Monitor Temp 97.3 F L Temperature Source Temporal Artery Pulse Oximetry (%) 96 Oxygen Delivery Method room air Intake Visit Reasons: 1 MONTH F/U POST RT Is patient in pain?: No Allergies Iodinated Contrast Media Allergy (Severe, Verified 12/19/24 11:33) seizures Medications ???Medication ???Instructions ???Recorded ???Confirmed ???Type amiodarone 200 mg tablet 200 mg PO QDAY 09/18/24 12/19/24 H istory aspirin 81 mg tablet,delayed 81 mg PO QDAY 09/18/24 12/19/24 Hi story release pravastatin 40 mg tablet 40 mg PO QHS 09/18/24 12/19/24 His tory warfarin 2 mg tablet 2 mg PO QDAY 09/18/24 12/19/24 His tory Have you fallen in the past year?: No PFSH PFSH Medical History Emphysema lung COPD (chronic obstructive pulmonary disease) Atrial fibrillation Appendicitis Cataract Aortic aneurysm Hyperlipidemia Lung cancer Home Medications ???Medication ???Instructions ???Recorded ???Last Taken ???Type amiodarone 200 mg tablet 200 mg PO QDAY 09/18/24 Unknown Hi story aspirin 81 mg tablet,delayed 81 mg PO QDAY 09/18/24 Unknown His tory release pravastatin 40 mg tablet 40 mg PO QHS 09/18/24 Unknown Hist ory warfarin 2 mg tablet 2 mg PO QDAY 09/18/24 Unknown Hist ory Allergy/AdvReac Type Severity Reaction Status Date / Time Iodinated Contrast Media Allergy Severe seizures Verified 12/19/24 11:33 Family History Sister Melanoma Sister Breast cancer Sister Cancer LUNG Sister Cancer LUNG Father Cancer LUNG Sister Parkinson disease Mother Diabetes Surgical History Hx of appendectomy Aortocoronary bypass status Social History household members: spouse and children current occupational status: retired Smoking Status: Current every day smoker Diagnosis: Cj Gonzalez is a 79 year-old male diagnosed with 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 From 3/4 ??? 11/10/2024 he received lung SBRT to the primary disease. History of Present Illness: 07/10/2024: Patient completed low-dose screening CT of the chest without contrast.??? This demonstrated a spiculated 9 mm right upper lobe nodule, recommend PET scan.??? No other abnormalities appreciated. 07/25/2024: Patient completed PET scan.??? This demonstrated a hypermetabolic right upper lobe pulmonary lesion suspicious for malignancy.??? This measures 1.1 cm with a maximum SUV of 5.4.??? No hypermetabolic mediastinal adenopathy is noted.??? There is a right cervical chain lymph node measuring 8 mm with an SUV of 9.2.??? No other evidence of systemic disease. 08/03/2024: Patient completed ultrasound of the right neck.??? This demonstrated nonvisualization of the PET avid right level 4 cervical lymph node. 09/08/2024: Patient completed right neck level 4 lymph node biopsy which was consistent with metastatic adenocarcinoma.??? Also completed right neck selective neck dissection of level 4 which demonstrated metastatic mucinous adenocarcinoma involving 1 of 3 lymph nodes, positive lymph node measures 1.4 cm in size, no evidence of extranodal extension. 09/25/2024: Patient completed brain MRI with and without contrast.??? This demonstrated mild volume loss and ischemic changes but no evidence of metastatic disease. 09/26/2024: Patient completed PET scan.??? This demonstrated no interval increase in metabolic activity or size in the hypermetabolic posterior right upper lobe spiculated nodule compared to the prior study in June.??? No hypermetabolic adenopathy or distant metastatic disease is present. From - ??? 11/10/2024: received lung SBRT consisting of 5000 cGy delivered in 5 fractions. He was treated with a VMAT plan using 6 FFF MV photons. Radiation Treatment History: 1) From - ??? 11/10/2024: received lung SBRT consisting of 5000 cGy deli (more content not included)... 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 Oncologic History: 07/10/2024: Patient completed low-dose screening CT of the chest without contrast.??? This demonstrated a spiculated 9 mm right upper lobe nodule, recommend PET scan.??? No other abnormalities appreciated. 07/25/2024: Patient completed PET scan.??? This demonstrated a hypermetabolic right upper lobe pulmonary lesion suspicious for malignancy.??? This measures 1.1 cm with a maximum SUV of 5.4.??? No hypermetabolic mediastinal adenopathy is noted.??? There is a right cervical chain lymph node measuring 8 mm with an SUV of 9.2.??? No other evidence of systemic disease. 08/03/2024: Patient completed ultrasound of the right neck.??? This demonstrated nonvisualization of the PET avid right level 4 cervical lymph node. 09/08/2024: Patient completed right neck level 4 lymph node biopsy which was consistent with metastatic adenocarcinoma.??? Also completed right neck selective neck dissection of level 4 which demonstrated metastatic mucinous adenocarcinoma involving 1 of 3 lymph nodes, positive lymph node measures 1.4 cm in size, no evidence of extranodal extension. 09/25/2024: Patient completed brain MRI with and without contrast.??? This demonstrated mild volume loss and ischemic changes but no evidence of metastatic disease. 09/26/2024: Patient completed PET scan.??? This demonstrated no interval increase in metabolic activity or size in the hypermetabolic posterior right upper lobe spiculated nodule compared to the prior study in June.??? No hypermetabolic adenopathy or distant metastatic disease is present. Radiation Treatment History: None The patient completed a course of external beam radiotherapy in our department. This treatment was delivered for curative intent. Treatment was given according to the following parameters: CJ GONZALEZ received lung SBRT consisting of 5000 cGy delivered in 5 fractions. He was treated with a VMAT plan using 6 FFF MV photons. The patient did not receive concurrent chemotherapy. Date of First Treatment: 10/31/2024 Date of Last Treatment: 11/10/2024 Total Elapsed Days (including weekend and holidays): 10 Missed Treatments: none Response and Tolerance: The patient tolerated this course of radiotherapy well overall and did not experience any apparent toxicities during treatment. Total weight change during therapy: N/A Disposition: The patient tolerated the planned course of radiation therapy well without unexpected toxicity in an appropriate time course. I reviewed management of potential toxicities and discussed expected timing for toxicity resolution. I will have CJ follow-up in one month for a routine visit. CJ will maintain follow up with all other providers. CJ was instructed to call with any further questions or concerns in the interim. If we can provide any further information on this patient's course of care, please do not hesitate to ask. We would like to thank you very much for allowing us to participate in the care of this patient. Sincerely, Bria Liu DO, MS Marzipan Molder, Department of Radiation Oncology [facility] 11/10/24 1825 Date Bria Tanner Signature: Date (if applicable) CC: Dr. Marlin Lancaster DO; Dr. Yordy Velazquez DO [facility] Radiation Oncology Visit [facility] Cancer [address] [place] [address] OFFICE VISIT Date of Service: 11/10/24 1226 MR#: [id number] Acct: [id number] Name: CJ GONZALEZ Rep #: [id number] : 1945 From: Bria Jack DO Age/Sex: 79/M Location: [facility] [place] Status: Signed Intake Vital Signs 11/08/24 13:08 Height 5 ft 6 in Intake Visit Reasons: Amb Documentation Allergies Iodinated Contrast Media Allergy (Severe, Verified 09/29/24 09:56) seizures Have you fallen in the past year?: No PFSH PFSH Medical History Emphysema lung COPD (chronic obstructive pulmonary disease) Atrial fibrillation Appendicitis Cataract Aortic aneurysm Hyperlipidemia Lung cancer Allergy/AdvReac Type Severity Reaction Status Date / Time Iodinated Contrast Media Allergy Severe seizures Verified 09/29/24 09:56 Family History Sister Melanoma Sister Breast cancer Sister Cancer LUNG Sister Cancer LUNG Father Cancer LUNG Sister Parkinson disease Mother Diabetes Surgical History Hx of appendectomy Aortocoronary bypass status Social History household members: spouse and children current occupational status: retired Smoking Status: Current every day smoker Stereotactic Body Radiation Therapy Procedure - Lung: DATE OF PROCEDURE: 11/10/2024 RADIATION ONCOLOGIST: Bria Liu D.O., M.S. 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 PROCEDURE PERFORMED: Stereotactic ablative radiation therapy (SABR/SBRT) to the right upper lobe lung cancer CONSENT: Informed consent was obtained prior to the procedure. Procedure risks, benefits, alternatives and expected outcomes were discussed with the patient. All options have been reviewed and consent had been obtained prior to the procedure. Consent(s) were scanned into the electronic medical record. UNIVERSAL PROTOCOL / TIMEOUT: Pre-procedure verification is complete: patient verified and consents confirmed, procedure site was identified, timeout was called before the start of the procedure. ESTIMATED BLOOD LOSS: None SPECIMENS REMOVED: None ANESTHESIA: None RADIATION DOSE GIVEN: 1000 cGy FRACTION: 5 of 5 CUMULATIVE DOSE: 5000 cGy PLANNED TOTAL DOSE: 5000 cGy DETAILS OF PROCEDURE: Cj Gonzalez is a 79 year-old male who presented to our clinic today for the fifth fraction of stereotactic body radiation therapy for Lung Cancer. The patient reports no interval symptoms or problems since the last evaluation in our department. The patient was placed in the stereotactic body frame and the isocenter was shifted to the isocenter as determined by the computer plan. A cone beam CT was then performed and it was determined shifting would be required for accurate treatment delivery. After the necessary shifts were made, radiation was subsequently delivered with highly conformal beams. After the completion of radiation delivery, the patient was removed from the stereotactic body frame. I was present for all critical portions of the procedure including time out, cone beam localization, and initiation of therapy. There were no acute complications, no blood loss, and no specimens were removed. CONDITION: The patient tolerated the procedure well and was in stable condition. ATTESTATION: I was present for all critical portions of the procedure including time out, CBCT and treatment delivery. PLAN: Stereotactic body radiation therapy to a total of 5 fractions; when complete, follow up with Dr. Liu 3 months after treatment with a CT chest at that time. Bria Liu DO, MS Marzipan Molder, Department of Radiation Oncology [facility] Coding Level of Care Code Allegra Almanza Comment SBRT treatment 11/10/24 1227 Date Bria Dumont (more content not included)... [facility] CNOVSPon 11-09-2024 CNOVSP Visit (SP) Office (HEMAWS) CJ GONZALEZ ([id number]) 1945 M Date Time Provider Department 11/09/24 9:10 AM YORDY VELAZQUEZ During your visit today, we recorded the following information about you: Temperature Pulse Blood pressure Weight 97.9 degrees 61/minute 142/89 77.3 kg Yordy Velazquez DO 11/09/2024 9:50 AM Signed Oncologic problem(s): 1) Metastatic NSCLC. HPI: The patient is a 79-year-old male with a past medical history significant for CAD (5 vessel CABG), COPD, atrial fibrillation, aortic aneurysm, hyperlipidemia, smoking, KWABENA (won't try CPAP) and non-small cell lung cancer. He originally had a low-dose screening CT chest on 07/10/2024. He was observed to have a 9 mm spiculated lesion in the right upper lobe. PET scan 07/25/2024 done at [facility] demonstrated a right cervical chain level 4 lymph node measuring 8 mm with an SUV of 9.2. In the right upper lobe there was a 1.1 cm nodule that was hypermetabolic with a maximum SUV of 5.4. There was no hypermetabolic mediastinal, hilar or axillary lymphadenopathy. Calcified left hilar nodes were observed. There is a 3.4 cm infrarenal abdominal aortic aneurysm. Calcified granulomas were present in both the liver and spleen. There is no suspicious osseous lesion. An ultrasound of the neck was performed on 08/03/2024. Evidently there was nonvisualization of the FDG avid right level 4 cervical lymph node. He underwent a right sided selective neck dissection of level 4 on 09/09/2024. During the procedure 1 cm abnormal lymph node was noted to be positive for adenocarcinoma on frozen section. Pathology: Metastatic adenocarcinoma lung was identified in the right level 4 lymph node. Disease involved 1 of 3 lymph nodes. It was noted to be a mucinous adenocarcinoma. It measured 1.4 cm in size. The tumor was positive for cytokeratin 7, Napsin A and TTF-1. Negative for CK20 and CDX2. Had PFTs done at [facility]. Results not currently available. 09/25/2024: Patient completed brain MRI with and without contrast. This demonstrated mild volume loss and ischemic changes but no evidence of metastatic disease. 09/26/2024: Patient completed PET scan. This demonstrated no interval increase in metabolic activity or size in the hypermetabolic posterior right upper lobe spiculated nodule compared to the prior study in June. No hypermetabolic adenopathy or distant metastatic disease is present. Initial office visit: He feels well in general. His appetite is normal and he has not had any weight loss. No symptoms from atrial fibrillation. Tolerating Coumadin well without any unusual bleeding or unexplained bruising. He does not feel like he is limited by dyspnea. He is able to walk outside for considerable distances but his and daughter endorse that he does not do very much around the house. He is down to about 2 cigarettes a day at this point. Chronic cough. Denies chest pain. Presents for ongoing oncologic management. Interim history: Has one more fraction radiation left. Tolerating well. No other subjective change. REVIEW OF SYSTEMS: Constitutional: No episodes of fever and night sweats. Neuro: No symptoms of neuropathy. HEENT: No recent change in voice, vision or hearing. Resp: See above. CVS: No exertional chest pain, PND, orthopnea and LE edema. GI: No reflux, n/v, change in bowel habits or abdominal pain. : No dysuria or gross hematuria. Endo: No hot flashes. No polyuria and polydipsia. No heat and cold intolerance. Musculoskeletal: Chronic back pain. Derm: No current rash. Heme: No unusual bleeding and unexplained bruising. Psych: Normal mood. PHYSICAL EXAM: Vitals: Blood pressure 142/89, pulse 61, temperature 36.6 ?C (97.9 ?F), temperature source Temporal, weight 77.3 kg (170 lb 8 oz), SpO2 99%. Well-appearing and in no acute distress. EYES: Sclerae are anicteric bilaterally. LYMPHATIC: There is no palpable adenopathy. RESPIRATORY: Inspiratory breath sounds are of diminished and coarse intensity in all son. CARDIOVASCULAR: Rhythm is regular on today's exam ABDOMEN: The abdomen is nondistended. No tenderness. Extremities: No swelling or edema. SKIN: No jaundice. NGS/biomarkers/pile driver operator mutation analyses: See scanned pathology report. No pile driver operator mutations. Tumor proportion score 50%. Combined positive score 60. 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 -Since TPS 50%, reasonable to treat systemically with immunotherapy up to 2 years pending tolerance and course of the disease. I recommended pembrolizumab. -I discussed the rationale, logistics, potential risks (including but not limited to fatigue and autoimmune side effects (more content not included)... [facility] Reji 11-09-2024 ROBYNN Telephone (KRISTINA) CJ GONZALEZ ([id number]) 1945 M Date Time Provider Department 11/09/24 NASRIN BOATENG During your visit today, we recorded the following information about you: Nasrin Boateng, RN 11/09/2024 9:55 AM Signed Met with patient and introduced myself. Patient was given a My Journey binder with chemocare information, office contact information, thermometer, and additional chemotherapy resource handouts. Patient aware this nurse will review on scheduled appointment date. Nasrin Boateng RN Allergies As of Date: 11/09/2024 Noted Allergy Reaction CONTRAST DYE (IODINE) 10/06/2024 14 - Other: See Comments Comments: Seizure Date Reviewed: 11/09/2024 Reviewed by: Amos Pina MA - Fully Assessed Reason for Visit: Clinical Trials Systems Administrator - Other [3602] Cmt: Introduction Prescriptions as of 11/09/2024 - amiodarone (PACERONE) 200 mg tablet Take 200 mg by mouth once daily. - pravastatin (PRAVACHOL) 40 mg tablet Take 40 mg by mouth daily at bedtime. - warfarin (COUMADIN) 2 mg tablet Take 2 mg by mouth once daily. - aspirin 81 mg cap Take 81 mg by mouth every other day. 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) [C77.0] 11/09/2024 Encounter Status:Closed by NASRIN BOATENG on 11/09/24 [facility] Radiation Oncology Visiton 0 11-08-2024 Radiation Oncology Visit [facility] Cancer [address] [address] OFFICE VISIT Date of Service: 11/08/24 1308 MR#: [id number] Acct: [id number] Name: CJ GONZALEZ Rep #: [id number] : 1945 From: Bria Liu DO Age/Sex: 79/M Location: [facility] Status: Signed Intake Vital Signs 09/29/24 09:56 11/08/24 12:28 Height 5 ft 6 in 5 ft 6 in Weight: 170 lb BMI 27.4 BP 158/73 H Blood Pressure Location Lt brachial Position Sitting Respiration 18 Pulse 59 L Pulse Source Monitor Temp 97.7 F L Temperature Source Temporal Artery Pulse Oximetry (%) 95 Oxygen Delivery Method room air Intake Visit Reasons: OTV Allergies Iodinated Contrast Media Allergy (Severe, Verified 09/29/24 09:56) seizures Medications ???Medication ???Instructions ???Recorded ???Confirmed ???Type amiodarone 200 mg tablet 200 mg PO QDAY 09/18/24 11/08/24 H istory aspirin 81 mg tablet,delayed 81 mg PO QDAY 09/18/24 11/08/24 Hi story release pravastatin 40 mg tablet 40 mg PO QHS 09/18/24 11/08/24 His tory warfarin 2 mg tablet 2 mg PO QDAY 09/18/24 11/08/24 His tory Have you fallen in the past year?: No PFSH PFSH Medical History Emphysema lung COPD (chronic obstructive pulmonary disease) Atrial fibrillation Appendicitis Cataract Aortic aneurysm Hyperlipidemia Lung cancer Home Medications ???Medication ???Instructions ???Recorded ???Last Taken ???Type amiodarone 200 mg tablet 200 mg PO QDAY 09/18/24 Unknown Hi story aspirin 81 mg tablet,delayed 81 mg PO QDAY 09/18/24 Unknown His tory release pravastatin 40 mg tablet 40 mg PO QHS 09/18/24 Unknown Hist ory warfarin 2 mg tablet 2 mg PO QDAY 09/18/24 Unknown Hist ory Allergy/AdvReac Type Severity Reaction Status Date / Time Iodinated Contrast Media Allergy Severe seizures Verified 09/29/24 09:56 Family History Sister Melanoma Sister Breast cancer Sister Cancer LUNG Sister Cancer LUNG Father Cancer LUNG Sister Parkinson disease Mother Diabetes Surgical History Hx of appendectomy Aortocoronary bypass status Social History household members: spouse and children current occupational status: retired Smoking Status: Current every day smoker Stereotactic Body Radiation Therapy Procedure - Lung: DATE OF PROCEDURE: 11/08/2024 RADIATION ONCOLOGIST: Bria Liu D.O., M.S. 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 PROCEDURE PERFORMED: Stereotactic ablative radiation therapy (SABR/SBRT) to the right upper lobe lung cancer CONSENT: Informed consent was obtained prior to the procedure. Procedure risks, benefits, alternatives and expected outcomes were discussed with the patient. All options have been reviewed and consent had been obtained prior to the procedure. Consent(s) were scanned into the electronic medical record. UNIVERSAL PROTOCOL / TIMEOUT: Pre-procedure verification is complete: patient verified and consents confirmed, procedure site was identified, timeout was called before the start of the procedure. ESTIMATED BLOOD LOSS: None SPECIMENS REMOVED: None ANESTHESIA: None RADIATION DOSE GIVEN: 1000 cGy FRACTION: 4 of 5 CUMULATIVE DOSE: 4000 cGy PLANNED TOTAL DOSE: 5000 cGy DETAILS OF PROCEDURE: Cj Gonzalez is a 79 year-old male who presented to our clinic today for the fourth fraction of stereotactic body radiation therapy for Lung Cancer. The patient reports no interval symptoms or problems since the last evaluation in our department. The patient was placed in the stereotactic body frame and the isocenter was shifted to the isocenter as determined by the computer plan. A cone beam CT was then performed and it was determined shifting would be required for accurate treatment delivery. After the necessary shifts were made, radiation was subsequently delivered with highly (more content not included)... [facility] Radiation Oncology Visit [facility] Cancer Care [facility] [place] [address] OFFICE VISIT Date of Service: 11/08/24 1223 MR#: [id number] Acct: [id number] Name: CJ GONZALEZ Rep #: [id number] : 1945 From: Bria Jack DO Age/Sex: 79/M [place] [facility] Status: Signed Intake Vital Signs 09/29/24 09:56 11/08/24 12:28 Height 5 ft 6 in 5 ft 6 in Weight: 170 lb BMI 27.4 BP 158/73 H Blood Pressure Location Lt brachial Position Sitting Respiration 18 Pulse 59 L Pulse Source Monitor Temp 97.7 F L Temperature Source Temporal Artery Pulse Oximetry (%) 95 Oxygen Delivery Method room air Intake Visit Reasons: OTV Is patient in pain?: No Allergies Iodinated Contrast Media Allergy (Severe, Verified 09/29/24 09:56) seizures Medications ???Medication ???Instructions ???Recorded ???Confirmed ???Type amiodarone 200 mg tablet 200 mg PO QDAY 09/18/24 11/08/24 H istory aspirin 81 mg tablet,delayed 81 mg PO QDAY 09/18/24 11/08/24 Hi story release pravastatin 40 mg tablet 40 mg PO QHS 09/18/24 11/08/24 His tory warfarin 2 mg tablet 2 mg PO QDAY 09/18/24 11/08/24 His tory Have you fallen in the past year?: No PFSH PFSH Medical History Emphysema lung COPD (chronic obstructive pulmonary disease) Atrial fibrillation Appendicitis Cataract Aortic aneurysm Hyperlipidemia Lung cancer Home Medications ???Medication ???Instructions ???Recorded ???Last Taken ???Type amiodarone 200 mg tablet 200 mg PO QDAY 09/18/24 Unknown Hi story aspirin 81 mg tablet,delayed 81 mg PO QDAY 09/18/24 Unknown His tory release pravastatin 40 mg tablet 40 mg PO QHS 09/18/24 Unknown Hist ory warfarin 2 mg tablet 2 mg PO QDAY 09/18/24 Unknown Hist ory Allergy/AdvReac Type Severity Reaction Status Date / Time Iodinated Contrast Media Allergy Severe seizures Verified 09/29/24 09:56 Family History Sister Melanoma Sister Breast cancer Sister Cancer LUNG Sister Cancer LUNG Father Cancer LUNG Sister Parkinson disease Mother Diabetes Surgical History Hx of appendectomy Aortocoronary bypass status Social History household members: spouse and children current occupational status: retired Smoking Status: Current every day smoker Diagnosis: Cj Gonzalez is a 79 year-old male diagnosed with 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 Plan: Plan was made to complete lung SBRT consisting of 5000 cGy delivered in 5 fractions. Treatment Data: Treatment Site: RUL Current total dose/Total dose planned: 4000 cGy / 5000 cGy Fraction number: Chemotherapy: none Subjective: Pain: 0 / 10 Fatigue: none Skin: no erythema, rash, desquamation GI: no dysphagia or odynophagia. No reflux Respiratory: no cough, SOB, hemoptysis Objective: Weight: 170 lbs Physical Exam: Gen: NAD Resp: CTAB. No wheezes, rhonchi, or rales. No increased work of breathing. On room air. CV: RRR. No murmurs. Assessment Plan Assessment/Plan (1) Primary adenocarcinoma of right lung: PLAN: Plan Assessment: Tolerating treatment well overall.??? I reviewed and approved all treatment associated imaging. No treatment associated toxicities are noted at this time Plan: Continue treatment as planned.??? I have reviewed potential treatment associated toxicities as well as timing for resolution and management. Skin: Skin care reviewed Follow up in one month or sooner if needed. Thank you for allowing me to participate in the management and care of your patient. If I may answer any questions in the interim, please do not hesitate to contact me at any time. Bria Liu DO, MS Marzipan Molder, Department of Radiation Oncology [facility] Coding Level of Care Code Radiation Tx Management x5 Diagnoses Primary adenocarcinoma of right lung C34.91 11/08/24 1308 Date [facility]ria Liu DO [facility] Signature: Date (if applicable) CC: [facility] Radiation Oncology Visiton 0 11-06-2024 Radiation Oncology Visit [facility] Cancer Care [address] [place] [address] OFFICE VISIT Date of Service: 11/06/24 1257 MR#: [id number] Acct: [id number] Name: CJ GONZALEZ Rep #: [id number] : 1945 From: Bria Liu DO Age/Sex: 79/M Location: [facility] Status: Signed Intake Vital Signs 11/02/24 13:02 Height 5 ft 6 in Intake Visit Reasons: Amb Documentation Allergies Iodinated Contrast Media Allergy (Severe, Verified 09/29/24 09:56) seizures Have you fallen in the past year?: No PFSH PFSH Medical History Emphysema lung COPD (chronic obstructive pulmonary disease) Atrial fibrillation Appendicitis Cataract Aortic aneurysm Hyperlipidemia Lung cancer Allergy/AdvReac Type Severity Reaction Status Date / Time Iodinated Contrast Media Allergy Severe seizures Verified 09/29/24 09:56 Family History Sister Melanoma Sister Breast cancer Sister Cancer LUNG Sister Cancer LUNG Father Cancer LUNG Sister Parkinson disease Mother Diabetes Surgical History Hx of appendectomy Aortocoronary bypass status Social History household members: spouse and children current occupational status: retired Smoking Status: Current every day smoker Stereotactic Body Radiation Therapy Procedure - Lung: DATE OF PROCEDURE: 11/06/2024 RADIATION ONCOLOGIST: Bria Liu D.O., M.S. 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 PROCEDURE PERFORMED: Stereotactic ablative radiation therapy (SABR/SBRT) to the right upper lobe lung cancer CONSENT: Informed consent was obtained prior to the procedure. Procedure risks, benefits, alternatives and expected outcomes were discussed with the patient. All options have been reviewed and consent had been obtained prior to the procedure. Consent(s) were scanned into the electronic medical record. UNIVERSAL PROTOCOL / TIMEOUT: Pre-procedure verification is complete: patient verified and consents confirmed, procedure site was identified, timeout was called before the start of the procedure. ESTIMATED BLOOD LOSS: None SPECIMENS REMOVED: None ANESTHESIA: None RADIATION DOSE GIVEN: 1000 cGy FRACTION: 3 of 5 CUMULATIVE DOSE: 3000 cGy PLANNED TOTAL DOSE: 5000 cGy DETAILS OF PROCEDURE: Cj Gonzalez is a 79 year-old male who presented to our clinic today for the third fraction of stereotactic body radiation therapy for Lung Cancer. The patient reports no interval symptoms or problems since the last evaluation in our department. The patient was placed in the stereotactic body frame and the isocenter was shifted to the isocenter as determined by the computer plan. A cone beam CT was then performed and it was determined shifting would be required for accurate treatment delivery. After the necessary shifts were made, radiation was subsequently delivered with highly conformal beams. After the completion of radiation delivery, the patient was removed from the stereotactic body frame. I was present for all critical portions of the procedure including time out, cone beam localization, and initiation of therapy. There were no acute complications, no blood loss, and no specimens were removed. CONDITION: The patient tolerated the procedure well and was in stable condition. ATTESTATION: I was present for all critical portions of the procedure including time out, CBCT and treatment delivery. PLAN: Stereotactic body radiation therapy to a total of 5 fractions; when complete, follow up with Dr. Liu 3 months after treatment with a CT chest at that time. Bria Liu DO, MS Marzipan Molder, Department of Radiation Oncology [facility] Coding Level of Care Code Attention Office Assistant Comment SBRT treatment 11/06/24 1257 Date Bria Dumont (more content not included)... [facility] Radiation Oncology Visiton 0 11-02-2024 Radiation Oncology Visit [facility] Cancer [address] [address] OFFICE VISIT Date of Service: 11/02/24 1300 MR#: [id number] Acct: [id number] Name: CJ GONZALEZ Rep #: [id number] : 1945 From: Bria Liu DO Age/Sex: 79/M Location: [facility] [place] Status: Signed Intake Vital Signs 10/31/24 12:49 Height 5 ft 6 in Intake Visit Reasons: Amb Documentation Allergies Iodinated Contrast Media Allergy (Severe, Verified 09/29/24 09:56) seizures Have you fallen in the past year?: No PFSH PFSH Medical History Emphysema lung COPD (chronic obstructive pulmonary disease) Atrial fibrillation Appendicitis Cataract Aortic aneurysm Hyperlipidemia Lung cancer Allergy/AdvReac Type Severity Reaction Status Date / Time Iodinated Contrast Media Allergy Severe seizures Verified 09/29/24 09:56 Family History Sister Melanoma Sister Breast cancer Sister Cancer LUNG Sister Cancer LUNG Father Cancer LUNG Sister Parkinson disease Mother Diabetes Surgical History Hx of appendectomy Aortocoronary bypass status Social History household members: spouse and children current occupational status: retired Smoking Status: Current every day smoker Stereotactic Body Radiation Therapy Procedure - Lung: DATE OF PROCEDURE: 11/02/2024 RADIATION ONCOLOGIST: Bria Liu D.O., M.S. 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 PROCEDURE PERFORMED: Stereotactic ablative radiation therapy (SABR/SBRT) to the right upper lobe lung cancer CONSENT: Informed consent was obtained prior to the procedure. Procedure risks, benefits, alternatives and expected outcomes were discussed with the patient. All options have been reviewed and consent had been obtained prior to the procedure. Consent(s) were scanned into the electronic medical record. UNIVERSAL PROTOCOL / TIMEOUT: Pre-procedure verification is complete: patient verified and consents confirmed, procedure site was identified, timeout was called before the start of the procedure. ESTIMATED BLOOD LOSS: None SPECIMENS REMOVED: None ANESTHESIA: None RADIATION DOSE GIVEN: 1000 cGy FRACTION: 2 of 5 CUMULATIVE DOSE: 2000 cGy PLANNED TOTAL DOSE: 5000 cGy DETAILS OF PROCEDURE: Cj Gonzalez is a 79 year-old male who presented to our clinic today for the second fraction of stereotactic body radiation therapy for Lung Cancer. The patient reports no interval symptoms or problems since the last evaluation in our department. The patient was placed in the stereotactic body frame and the isocenter was shifted to the isocenter as determined by the computer plan. A cone beam CT was then performed and it was determined shifting would be required for accurate treatment delivery. After the necessary shifts were made, radiation was subsequently delivered with highly conformal beams. After the completion of radiation delivery, the patient was removed from the stereotactic body frame. I was present for all critical portions of the procedure including time out, cone beam localization, and initiation of therapy. There were no acute complications, no blood loss, and no specimens were removed. CONDITION: The patient tolerated the procedure well and was in stable condition. ATTESTATION: I was present for all critical portions of the procedure including time out, CBCT and treatment delivery. PLAN: Stereotactic body radiation therapy to a total of 5 fractions; when complete, follow up with Dr. Liu 3 months after treatment with a CT chest at that time. Bria Liu DO, MS Marzipan Molder, Department of Radiation Oncology [facility] Coding Level of Care Code Attention Archie Comment SBRT treatment 11/02/24 1302 Date Bria Dumont (more content not included)... [facility] Radiation Oncology Visiton 0 10-31-2024 Radiation Oncology Visit [facility] Cancer Care [address] [place], [place] [address] [place] [address] OFFICE VISIT Date of Service: 10/31/24 1247 MR#: [id number] Acct: [id number] Name: CJ GONZALEZ Rep #: [id number] : 1945 From: Bria Liu DO Age/Sex: 79/M Location: [facility] [place] Status: Signed Intake Vital Signs 09/29/24 09:56 Height 5 ft 6 in Weight: 171 lb 4 oz BMI 27.6 BP 120/67 Blood Pressure Location Rt brachial Position Sitting Respiration 16 Pulse 73 Pulse Source Monitor Temp 96.6 F L Temperature Source Temporal Artery Pulse Oximetry (%) 92 Oxygen Delivery Method room air Intake Visit Reasons: Amb Documentation Allergies Iodinated Contrast Media Allergy (Severe, Verified 09/29/24 09:56) seizures Have you fallen in the past year?: No PFSH PFSH Medical History Emphysema lung COPD (chronic obstructive pulmonary disease) Atrial fibrillation Appendicitis Cataract Aortic aneurysm Hyperlipidemia Lung cancer Allergy/AdvReac Type Severity Reaction Status Date / Time Iodinated Contrast Media Allergy Severe seizures Verified 09/29/24 09:56 Family History Sister Melanoma Sister Breast cancer Sister Cancer LUNG Sister Cancer LUNG Father Cancer LUNG Sister Parkinson disease Mother Diabetes Surgical History Hx of appendectomy Aortocoronary bypass status Social History household members: spouse and children current occupational status: retired Smoking Status: Current every day smoker Stereotactic Body Radiation Therapy Procedure - Lung: DATE OF PROCEDURE: 10/31/2024 RADIATION ONCOLOGIST: Bria Liu D.O., M.S. 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 PROCEDURE PERFORMED: Stereotactic ablative radiation therapy (SABR/SBRT) to the right upper lobe lung cancer CONSENT: Informed consent was obtained prior to the procedure. Procedure risks, benefits, alternatives and expected outcomes were discussed with the patient. All options have been reviewed and consent had been obtained prior to the procedure. Consent(s) were scanned into the electronic medical record. UNIVERSAL PROTOCOL / TIMEOUT: Pre-procedure verification is complete: patient verified and consents confirmed, procedure site was identified, timeout was called before the start of the procedure. ESTIMATED BLOOD LOSS: None SPECIMENS REMOVED: None ANESTHESIA: None RADIATION DOSE GIVEN: 1000 cGy FRACTION: 1 of 5 CUMULATIVE DOSE: 1000 cGy PLANNED TOTAL DOSE: 5000 cGy DETAILS OF PROCEDURE: Cj Gonzalez is a 79 year-old male who presented to our clinic today for the first fraction of stereotactic body radiation therapy for Lung Cancer. The patient reports no interval symptoms or problems since the last evaluation in our department. The patient was placed in the stereotactic body frame and the isocenter was shifted to the isocenter as determined by the computer plan. A cone beam CT was then performed and it was determined shifting would be required for accurate treatment delivery. After the necessary shifts were made, radiation was subsequently delivered with highly conformal beams. After the completion of radiation delivery, the patient was removed from the stereotactic body frame. I was present for all critical portions of the procedure including time out, cone beam localization, and initiation of therapy. There were no acute complications, no blood loss, and no specimens were removed. CONDITION: The patient tolerated the procedure well and was in stable condition. ATTESTATION: I was present for all critical portions of the procedure including time out, CBCT and treatment delivery. PLAN: Stereotactic body radiation therapy to a total of 5 fractions; when complete, follow up with Dr. Liu 3 months after treatment with a CT chest at that time. Bria Liu DO, MS Marzipan Molder, Department of Radiation Oncol (more content not included)... [facility] CNOVSPon 10-06-2024 [facility]OVSP [facility] LISACJ ([id number]) 1945 M Date Time Provider Department 10/06/24 1:30 PM YORDY VELAZQUEZ During your visit today, we recorded the following information about you: Temperature Pulse Blood pressure Weight 98 degrees 60/minute 129/70 77.8 kg Height 1.695 m Yordy Velazquez DO 10/06/2024 5:08 PM Signed Patient referred by Dr. Liu for metastatic NSCLC. HPI: The patient is a 79-year-old male with a past medical history significant for CAD (5 vessel CABG), COPD, atrial fibrillation, aortic aneurysm, hyperlipidemia, smoking, KWABENA (won't try CPAP) and non-small cell lung cancer. He originally had a low-dose screening CT chest on 07/10/2024. He was observed to have a 9 mm spiculated lesion in the right upper lobe. PET scan 07/25/2024 done at [facility] demonstrated a right cervical chain level 4 lymph node measuring 8 mm with an SUV of 9.2. In the right upper lobe there was a 1.1 cm nodule that was hypermetabolic with a maximum SUV of 5.4. There was no hypermetabolic mediastinal, hilar or axillary lymphadenopathy. Calcified left hilar nodes were observed. There is a 3.4 cm infrarenal abdominal aortic aneurysm. Calcified granulomas were present in both the liver and spleen. There is no suspicious osseous lesion. An ultrasound of the neck was performed on 08/03/2024. Evidently there was nonvisualization of the FDG avid right level 4 cervical lymph node. He underwent a right sided selective neck dissection of level 4 on 09/09/2024. During the procedure 1 cm abnormal lymph node was noted to be positive for adenocarcinoma on frozen section. Pathology: Metastatic adenocarcinoma lung was identified in the right level 4 lymph node. Disease involved 1 of 3 lymph nodes. It was noted to be a mucinous adenocarcinoma. It measured 1.4 cm in size. The tumor was positive for cytokeratin 7, Napsin A and TTF-1. Negative for CK20 and CDX2. Had PFTs done at [facility]. Results not currently available. 09/25/2024: Patient completed brain MRI with and without contrast. This demonstrated mild volume loss and ischemic changes but no evidence of metastatic disease. 09/26/2024: Patient completed PET scan. This demonstrated no interval increase in metabolic activity or size in the hypermetabolic posterior right upper lobe spiculated nodule compared to the prior study in June. No hypermetabolic adenopathy or distant metastatic disease is present. He feels well in general. His appetite is normal and he has not had any weight loss. No symptoms from atrial fibrillation. Tolerating Coumadin well without any unusual bleeding or unexplained bruising. He does not feel like he is limited by dyspnea. He is able to walk outside for considerable distances but his and daughter endorse that he does not do very much around the house. He is down to about 2 cigarettes a day at this point. Chronic cough. Denies chest pain. REVIEW OF SYSTEMS: Constitutional: No episodes of fever and night sweats. Neuro: No symptoms of neuropathy. HEENT: No recent change in voice, vision or hearing. Resp: See above. CVS: No exertional chest pain, PND, orthopnea and LE edema. GI: No reflux, n/v, change in bowel habits or abdominal pain. : No dysuria or gross hematuria. Endo: No hot flashes. No polyuria and polydipsia. No heat and cold intolerance. Musculoskeletal: Chronic back pain. Derm: No current rash. Heme: No unusual bleeding and unexplained bruising. Psych: Normal mood. PHYSICAL EXAM: Vitals: Blood pressure 129/70, pulse 60, temperature 36.7 ?C (98 ?F), temperature source Temporal, height 169.5 cm (5' 6.73), weight 77.8 kg (171 lb 8 oz), SpO2 96%. Well-appearing and in no acute distress. EYES: Sclerae are anicteric bilaterally. LYMPHATIC: There is no palpable adenopathy. RESPIRATORY: Inspiratory breath sounds are of diminished and coarse intensity in all son. CARDIOVASCULAR: Rhythm is regular on today's exam ABDOMEN: The abdomen is nondistended. No tenderness. Extremities: No swelling or edema. SKIN: No jaundice. NGS/biomarkers/pile driver operator mutation analyses: TBD. 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 -I talked with him and his family about the approach to managing stage IV non-small cell lung cancer. Admittedly his case is somewhat unusual, but very high likelihood he has mediastinal lymph node involvement. We discussed obtaining molecular testing and I anticipate recommending systemic therapy once he completes SBRT. Plan: -PD-L1 IHC. -Attenuator mutation panel. -Agree with SBRT to lung primary. -OV in about a month. I spent a total of 60 minutes on the date of the service which include (more content not included)... [facility] Supplemental Reporton 2024 Supplemental Report . Pathology Reports Accession: Collected Date/Time: Received Date/Time: Pathologist: [id number] 09/08/2024 10:27 EST 09/08/2024 11:09 JUDY FLOOD MD Supplemental Report SUPPLEMENTAL: [facility] [address] [facility], [address] [address] [facility] xT Results: Genomic Variants ARAF p.S214F, RB1 c.540-12_556del, POT1 c.1370-1_1370delinsTT, Biologically Relevant: EP300 p.Q523*, RUNX1 p.R166Q Tumor / Normal matched analysis (Potential germline) No normal sample was received, therefore tumor/normal matched analysis was not performed. Pertinent Negatives No pathogenic single nucleotide variants, indels, or copy number changes found in: EGFR, KRAS, BRAF, ALK, ROS1, RET, MET, ERBB2 (HER2) Immunotherapy markers Tumor Mutational [place] 19.5 m/MB Microsatellite Instability Status Stable [facility] xR Results: This report is being issued to report the results of gene rearrangement and altered splicing analysis from RNA sequencing. No gene rearrangements nor reportable altered splicing events were identified from RNA sequencing. Genomic Variants Potentially Actionable/ Biologically Relevant -No reportable pathogenic variants were found Treatment Implications -No reportable treatment options found [facility] RNA Results: Molecular Profile Expression Details: RNA expression analysis was performed. There are no reportable expression changes in non-immunotherapy related genes. Fore expression changes in immunotherapy related gentes, please see the immunotherapy module in the [facility] online portal. [facility] PD-L1 Expression: POSITIVE-HIGH Tumor Proportion Score (TPS): 50% Combined Positive Score (CPS): 60 Complete Report Scanned into chart. Verified by Diagnostic interpretation performed at [facility] JUDY DIAZ Sign out Date: 10/02/2024 08:25 Performing Lab: [facility], [address] [place] [address] Pathology Dept Pathology Reports Accession: Collected Date/Time: Received Date/Time: Pathologist: [id number] 09/08/2024 10:27 EST 09/08/2024 11:09 JUDY FLOOD MD Final Surgical Pathology Report DIAGNOSIS: A. NECK, RIGHT, LEVEL 4 LYMPH NODE, BIOPSY: - METASTATIC ADENOCARCINOMA B. NECK, RIGHT, LEVEL 4 -6 SELECTIVE LYMPH NODE DISSECTION: - METASTATIC MUCINOUS ADENOCARCINOMA, INVOLVING 1 OF 3 LYMPH NODES Comment: The positive lymph node measures 1.4 cm in size. No evidence of extranodal extension. Immunostains were performed. The tumor cells are positive for cytokeratin 7, Napsin A and TTF-1. The tumor cells are negative for CK20 and CDX2. These features support origin from a lung primary. Correlation with clinical and radiological findings recommended. Supervisor Of Way tissue block has been sent for PD-L1/NGS molecular profiling, supplemental report will follow. CLINICAL INFORMATION: LOCALIZED SWELLING, MASS AND LUMP, NECK Procedure: RIGHT SELECTIVE NECK DISSECTION LEVELS 4-6 Preoperative diagnosis: LOCALIZED SWELLING, MASS AND LUMP, NECK Postoperative diagnosis: LOCALIZED SWELLING, MASS AND LUMP, NECK SPECIMEN: A FS/TP: RIGHT LEVEL 4 LYMPH NODE B RIGHT LEVEL 4 LYMPH NODE INTRAOPERATIVE CONSULTATION: A FS/TP DX: METASTATIC ADENOCARCINOMA. - STAINS WILL BE DONE TO CONFIRM LUNG ORIGIN. performed by Roxanna Diaz M.D. GROSS DESCRIPTION: All parts labelled with patient name and [id number] A. Received fresh for frozen section labelled right level 4 lymph node Is a 0.7 cm aggregate of white -alford fragments entirely submitted for frozen section. AFS1 -frozen section tissue resubmitted. TS-1 B. Received in formalin labelled and TTF-1 Is a yellow pink-alford portion of adipose tissue containing lymph node overall measuring 2.5 x 2 x 1.5 cm. Tissue is bisected to reveal a alford-white to carrasco scalloped shaped lymph node measuring 1.4 x 1.2 x 1.4 cm. TS-2 Ct Padilla, Pathologists' Practicing Dermatologist (ASCP) Performed by CT PADILLA MICROSCOPIC DESCRIPTION: The microscopic examination is performed, except in the case of Gross Only. Electronically Signed by Pathology Report verified by [facility] JUDY DIAZ Sign out Date: 09/12/2024 08:34 Performing Lab: [facility], [address] [place] [address] Pathology Dept Pathology Reports Accession: Collected Date/Time: Received Date/Time: Pathologist: [id number] 09/08/2024 10:27 EST 09/08/2024 11:09 JUDY FLOOD MD Disclaimer If ancillary studies were utilized, the following Laboratory Developed Test (LDT) disclaimer will apply: Under CLIA requirements, [facility] Pathology Laboratory is qualified to perform high complexity testing. For all ancillary stains, positive and negative controls stain appropriately. Performance characteristics of immunohistochemical and chromogenic in-situ hybridization tests have been determi (more content not included)... Normal [facility] Radiation Oncology Visiton 0 09-29-2024 Radiation Oncology Visit [facility] Cancer Care [address] [place] [address] OFFICE VISIT Date of Service: 09/29/24 0952 MR#: [id number] Acct: [id number] Name: CJ GONZALEZ Rep #: [id number] : 1945 From: Bria Liu DO Age/Sex: 79/M [place] [facility] Status: Signed Intake Vital Signs 09/20/24 09:59 09/29/24 09:56 Height 5 ft 6 in 5 ft 6 in Weight: 169 lb 4 oz 171 lb 4 oz BMI 27.3 27.6 BP 125/73 H 120/67 Blood Pressure Location Rt brachial Rt brachial Position Sitting Sitting Respiration 16 16 Pulse 54 L 73 Pulse Source Monitor Monitor Temp 97.4 F L 96.6 F L Temperature Source Temporal Artery Temporal Artery Pulse Oximetry (%) 97 92 Oxygen Delivery Method room air room air Intake Visit Reasons: REVIEW SCANS Is patient in pain?: No Allergies Iodinated Contrast Media Allergy (Severe, Verified 09/29/24 09:56) seizures Medications ???Medication ???Instructions ???Recorded ???Confirmed ???Type amiodarone 200 mg tablet 200 mg PO QDAY 09/18/24 09/29/24 H istory aspirin 81 mg tablet,delayed 81 mg PO QDAY 09/18/24 09/29/24 Hi story release pravastatin 40 mg tablet 40 mg PO QHS 09/18/24 09/29/24 His tory warfarin 2 mg tablet 2 mg PO QDAY 09/18/24 09/29/24 His tory Have you fallen in the past year?: No PFSH PFS Medical History Emphysema lung COPD (chronic obstructive pulmonary disease) Atrial fibrillation Appendicitis Cataract Aortic aneurysm Hyperlipidemia Lung cancer Home Medications ???Medication ???Instructions ???Recorded ???Last Taken ???Type amiodarone 200 mg tablet 200 mg PO QDAY 09/18/24 Unknown Hi story aspirin 81 mg tablet,delayed 81 mg PO QDAY 09/18/24 Unknown His tory release pravastatin 40 mg tablet 40 mg PO QHS 09/18/24 Unknown Hist ory warfarin 2 mg tablet 2 mg PO QDAY 09/18/24 Unknown Hist ory Allergy/AdvReac Type Severity Reaction Status Date / Time Iodinated Contrast Media Allergy Severe seizures Verified 09/29/24 09:56 Family History Sister Melanoma Sister Breast cancer Sister Cancer LUNG Sister Cancer LUNG Father Cancer LUNG Sister Parkinson disease Mother Diabetes Surgical History Hx of appendectomy Aortocoronary bypass status Social History household members: spouse and children current occupational status: retired Smoking Status: Current every day smoker Diagnosis: Cj Gonzalez is a 79 year-old male diagnosed with 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 History of Present Illness: 07/10/2024: Patient completed low-dose screening CT of the chest without contrast.??? This demonstrated a spiculated 9 mm right upper lobe nodule, recommend PET scan.??? No other abnormalities appreciated. 07/25/2024: Patient completed PET scan.??? This demonstrated a hypermetabolic right upper lobe pulmonary lesion suspicious for malignancy.??? This measures 1.1 cm with a maximum SUV of 5.4.??? No hypermetabolic mediastinal adenopathy is noted.??? There is a right cervical chain lymph node measuring 8 mm with an SUV of 9.2.??? No other evidence of systemic disease. 08/03/2024: Patient completed ultrasound of the right neck.??? This demonstrated nonvisualization of the PET avid right level 4 cervical lymph node. 09/08/2024: Patient completed right neck level 4 lymph node biopsy which was consistent with metastatic adenocarcinoma.??? Also completed right neck selective neck dissection of level 4 which demonstrated metastatic mucinous adenocarcinoma involving 1 of 3 lymph nodes, positive lymph node measures 1.4 cm in size, no evidence of extranodal extension. 09/25/2024: Patient completed brain MRI with and without contrast.??? This demonstrated mild volume loss and ischemic changes but no evidence of metastatic disease. 09/26/2024: Patient completed PET scan.??? This demonstrated no interval increase in metabolic activity or size in the hypermetabolic posterior right upper lobe spiculated nodule compared to the prior study in June.??? No hypermetabolic adenopathy or distant metastatic disease is present. [facility] [address] [place] [address] OFFICE VISIT Date of Service: 09/20/24 0947 MR#: [id number] Acct: [id number] Name: CJ GONZALEZ (more content not included)... Normal [facility] CNPLori 09-28-2024 CNPN Telephone ([employer]) LISACJ ([id number]) 1945 M Date Time Provider Department 09/28/24 YORDY VELAZQUEZ During your visit today, we recorded the following information about you: Nidia Blake LPN 09/28/2024 4:05 PM Addendum PSS- please contact patient to offer a new patient appointment with Dr. Velazquez for 10/06/2024 @ 1:30. DX: lung cancer Referring provider: Dr. Liu All records are in [facility] system. SRI Araya Melissa 09/28/2024 4:14 PM Signed 1st attempt. Unable to reach patient. Phone number in [employer] is no longer available. Demographics and Insurance also needs added/updated. Do we have updated records? 10/06 @ 1:[address] Velazquez has been held for scheduling. Nidia Blake LPN 09/28/2024 4:28 PM Signed Phone number updated in [employer]. Please confirm patient's address with him.I will scan in the face sheet from [facility]. SRI Araya Angela 09/29/2024 8:17 AM Signed Lvm for patient to return the call. Updated demographics per facesheet. Rhianna Wayne 09/29/2024 8:32 AM Signed Scheduled with patient Allergies As of Date: 09/28/2024 (Not on File) Date Reviewed: Never Reviewed Reason for Visit: Appointment [186] Problem List As Of Date: 09/28/2024 (None) Encounter Status:Closed by NIDIA BLAKE on 09/29/24 [facility] PET/CT Tumor Base -Thigh Intila dunham 09-26-2024 PET/CT Tumor Base -Thigh [facility] [address] [place] [address] PET/CT Tumor Base -Thigh Init MR#: [id number] Acct: [id number] Name: CJ GONZALEZ Rep #: [id number] : 1945 M 79 From: Driss Tao PCP: Dr. Marlin Lancaster DO Status: REG RCR Study: PET/CT Tumor Base -Thigh Init Date of Exam: Exam# [id number] Ordering Dr: Bria Liu DO ADDENDUM by Dr. Driss Hodges MD on 10/19/24 at 1300 Correction: The study was performed from the level of the skull base to the mid thigh. Reading Location: [address] 10/19/24 1301 Date cc: Dr. Marlin Lancaster DO; Dr. Bria Liu DO * Signed EXAM: Whole-body F-18 FDG PET-CT. CLINICAL HISTORY: Stage IV right lung cancer. Restage before treatment COMPARISON: PET-CT of 07/25/2024. TECHNIQUE: Whole-body F-18 FDG PET-CT. Dose: 14.52 mCi F-18 FDG intravenous. FINDINGS: Blood glucose 60. Neck: No abnormal hypermetabolic activity is seen. Thorax: In the posterior right upper lobe, a spiculated nodule is again seen, with hypermetabolic activity and SUV max of 4.1. Also, it is measured at approximately 1 cm in diameter. Previous measurements the prior study of 07/25/2024 were SUV max of 5.4, and diameter of 1.1 cm Abdomen and pelvis: No abnormal hypermetabolic activity is seen. Stable abdominal aortic aneurysm, again measured at approximately 3.4 cm in the distal abdominal aorta. Moderately severe coronary artery calcification is seen. No hypermetabolic lymph nodes are noted. PET/PET/CT Tumor Base -Thigh Init IMPRESSION: 1. No interval increase in metabolic activity or size of the hypermetabolic posterior right upper lobe spiculated nodule is seen, compared with the prior study 07/25/2024. 2. No hypermetabolic adenopathy or distant metastasis is seen. Reading Location: [address] CC: Dr. Marlin Lancaster DO; Dr. 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 Sagittal and axial T1-weighted images. 2. Axial FLAIR images. 3. Axial T2-weighted and T2*-weighted images. 4. Axial diffusion-weighted images with ADC map. 5. Axial, sagittal and coronal T1-weighted images following uncomplicated administration of intravenous gadolinium contrast. FINDINGS: The ventricles and sulci are normal to mildly enlarged. There are no abnormal intra or extra-axial fluid collections. There are mild punctate and nodular T2 hyperintensities in the cerebral white matter. Carrasco-white matter differentiation is maintained. There is no abnormal restriction of diffusion. There is a subcentimeter focus of T2* signal dropout in the right temporal lobe. There is no abnormal enhancement of the brain or its coverings. The paranasal sinuses are clear. IMPRESSION: Mild volume loss and small vessel ischemic changes. Interpreted by: Shiraz Escobar MD Preliminary Report By: Shiraz Escobar MD Electronically signed By Shiraz Escobar MD Dictated Date: 09/25/2024 12:54:27 PM Prelim Date: 09/25/2024 12:56:39 PM Sign Date: 09/25/2024 12:56:39 PM Ordering Provider: BRIA LIU [facility] Radiation Oncology Visiton 0 09-20-2024 Radiation Oncology Visit [facility] [address] [place] [address] OFFICE VISIT Date of Service: 09/20/24 0947 MR#: [id number] Acct: [id number] Name: CJ GONZALEZ Rep #: [id number] : 1945 From: Bria Liu DO Age/Sex: 79/M Location: [facility] Status: Signed Intake Vital Signs 09/20/24 09:59 Height 5 ft 6 in Weight: 169 lb 4 oz BMI 27.3 BP 125/73 H Blood Pressure Location Rt brachial Position Sitting Respiration 16 Pulse 54 L Pulse Source Monitor Temp 97.4 F L Temperature Source Temporal Artery Pulse Oximetry (%) 97 Oxygen Delivery Method room air Intake Visit Reasons: LUNG CA Is patient in pain?: No Allergies Iodinated Contrast Media Allergy (Severe, Verified 09/20/24 10:01) seizures Medications ???Medication ???Instructions ???Recorded ???Confirmed ???Type amiodarone 200 mg tablet 200 mg PO QDAY 09/18/24 09/20/24 History aspirin 81 mg tablet,delayed 81 mg PO QDAY 09/18/24 09/20/24 History release pravastatin 40 mg tablet 40 mg PO QHS 09/18/24 09/20/24 History warfarin 2 mg tablet 2 mg PO QDAY 09/18/24 09/20/24 History Have you fallen in the past year?: No PFSH PFS Medical History (Updated 09/20/24 @ 10:[address] Bria Liu, DO) Emphysema lung COPD (chronic obstructive pulmonary disease) Atrial fibrillation Appendicitis Cataract Aortic aneurysm Hyperlipidemia Lung cancer Home Medications ???Medication ???Instructions ???Recorded ???Last Taken ???Type amiodarone 200 mg tablet 200 mg PO QDAY 09/18/24 Unknown History aspirin 81 mg tablet,delayed 81 mg PO QDAY 09/18/24 Unknown History release pravastatin 40 mg tablet 40 mg PO QHS 09/18/24 Unknown History warfarin 2 mg tablet 2 mg PO QDAY 09/18/24 Unknown History Allergy/AdvReac Type Severity Reaction Status Date / Time Iodinated Contrast Media Allergy Severe seizures Verified 09/20/24 10:01 Family History (Updated 09/20/24 @ 09:57 by Sylvia Gr) Sister Melanoma Sister Breast cancer Sister Cancer LUNG Sister Cancer LUNG Father Cancer LUNG Sister Parkinson disease Mother Diabetes Surgical History (Updated 09/20/24 @ 09:55 by Sylvia Gr) Hx of appendectomy Aortocoronary bypass status Social History (Updated 09/20/24 @ 09:59 by Sylvia Gr) household members: spouse and children current occupational status: retired Smoking Status: Current every day smoker Referring Provider: Self Diagnosis: Cj Gonzalez is a 79 year-old male diagnosed with 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 History of Present Illness: 07/10/2024: Patient completed low-dose screening CT of the chest without contrast.??? This demonstrated a spiculated 9 mm right upper lobe nodule, recommend PET scan.??? No other abnormalities appreciated. 07/25/2024: Patient completed PET scan.??? This demonstrated a hypermetabolic right upper lobe pulmonary lesion suspicious for malignancy.??? This measures 1.1 cm with a maximum SUV of 5.4.??? No hypermetabolic mediastinal adenopathy is noted.??? There is a right cervical chain lymph node measuring 8 mm with an SUV of 9.2.??? No other evidence of systemic disease. 08/03/2024: Patient completed ultrasound of the right neck.??? This demonstrated nonvisualization of the PET avid right level 4 cervical lymph node. 09/08/2024: Patient completed right neck level 4 lymph node biopsy which was consistent with metastatic adenocarcinoma.??? Also completed right neck selective neck dissection of level 4 which demonstrated metastatic mucinous adenocarcinoma involving 1 of 3 lymph nodes, positive lymph node measures 1.4 cm in size, no evidence of extranodal extension. Radiation Treatment History: No prior history of radiation therapy. No pacemaker. No diagnosis of radiosensitizing comorbidity. Interval History: Patient presents for initial consultation. He does have a chronic smoking history of about 70 years and smoked up to 2 packs/day. Currently he is smoking 1/2 pack/day and trying to quit. He does report mild intermittent fatigue which is may be worsened over the last year. Appetite is normal and swallowing is normal, denies unexpected weight changes. He does have shortness of breath particular with activity. He does not use inhalers or oxygen, he does not see a stator tester regularly. He does have a cough which is often productive with mucus but denies any hemoptysis. He does report a chronic history of headaches which are potentially worse in severity and frequency in the last several months, he has about 2 headaches per week and takes Tylenol for re (more content not included)... Normal [facility] .Auto Diffon 09-19-2024 Basophil, Absolute 0.1 10 3/mcL Normal 0.0-0.2 [facility] Comment on above: Performed By: #### G FR, CMP, ANEU, ADIFF, A1C, TSH, FT3, FT4, CBC #### [address] [address] Basophils/100 WBC (Bld) 0.7 % Normal 0.0-2.5 [facility] Comment on above: Performed By: #### G FR, CMP, ANEU, ADIFF, A1C, TSH, FT3, FT4, CBC #### [address] [address] Eosinophil, Absolute 0.0 10 3/mcL Normal 0.0-0.7 [facility] Comment on above: Performed By: #### G FR, CMP, ANEU, ADIFF, A1C, TSH, FT3, FT4, CBC #### [address] [address] Eosinophils/100 WBC (Bld) 0.6 % Normal 0.0-7.0 [facility] Comment on above: Performed By: #### G FR, CMP, ANEU, ADIFF, A1C, TSH, FT3, FT4, CBC #### [address] [address] Lymphocyte, Absolute 1.9 10 3/mcL Normal 0.9-4.3 [facility] Comment on above: Performed By: #### G FR, CMP, ANEU, ADIFF, A1C, TSH, FT3, FT4, CBC #### [address] [address] Lymphocytes/100 WBC (Bld) 23.3 % Normal 20.0-40.0 [facility] Comment on above: Performed By: #### G FR, CMP, ANEU, ADIFF, A1C, TSH, FT3, FT4, CBC #### [address] [address] Monocyte, Absolute 0.7 10 3/mcL Normal 0.1-1.4 [facility] Comment on above: Performed By: #### G FR, CMP, ANEU, ADIFF, A1C, TSH, FT3, FT4, CBC #### [address] [address] Monocytes/100 WBC (Bld) 9.2 % Normal 2.0-13.0 [facility] Comment on above: Performed By: #### G FR, CMP, ANEU, ADIFF, A1C, TSH, FT3, FT4, CBC #### [address] [address] Neutrophils/100 WBC (Bld) 66.2 % Normal 50.0-75.0 [facility] Comment on above: Performed By: #### G FR, CMP, ANEU, ADIFF, A1C, TSH, FT3, FT4, CBC #### [address] [address] .GFRon 09-19-2024 GFR 122 ml/min/1.73sqm [facility] Comment on above: Result Comment: GFR Population mean for , Non- Americans Ages 20-29 = 116 mL/min/1.73 sq.m. Ages 30-39 = 107 mL/min/1.73 sq.m. Ages 40-49 = 99 mL/min/1.73 sq.m. Ages 50-59 = 93 mL/min/1.73 sq.m. Ages 60-69 = 85 mL/min/1.73 sq.m. Ages 70+ = 75 mL/min/1.73 sq.m. Chronic Kidney Disease: Less than 60 mL/min/1.73 square meters End Stage Renal Disease: Less than 15 mL/min/1.73 square meters Performed By: #### A DIFF, GFR, PSA, CBC, A1C, LIPID, CMP, ANEU #### [address] [address] GFR Non- 101 ml/min/1.73sqm Normal [facility] Comment on above: Result Comment: GFR Population mean for , Non- Americans Ages 20-29 = 116 mL/min/1.73 sq.m. Ages 30-39 = 107 mL/min/1.73 sq.m. Ages 40-49 = 99 mL/min/1.73 sq.m. Ages 50-59 = 93 mL/min/1.73 sq.m. Ages 60-69 = 85 mL/min/1.73 sq.m. Ages 70+ = 75 mL/min/1.73 sq.m. Chronic Kidney Disease: Less than 60 mL/min/1.73 square meters End Stage Renal Disease: Less than 15 mL/min/1.73 square meters Performed By: #### A DIFF, GFR, PSA, CBC, A1C, LIPID, CMP, ANEU #### [address] [address] .NEUABSon 09-19-2024 Neutrophil, Absolute 5.3 10 3/mcL Normal 2.3-8.1 [facility] Comment on above: Performed By: #### A DIFF, GFR, PSA, CBC, A1C, LIPID, CMP, ANEU #### [address] [address] A1Con 09-19-2024 Glucose [Mass/Vol] 111 mg/dL Normal [facility] Comment on above: Result Comment: Marlyn mated Average Glucose calculated by equation ((28.7xA1C)-46.7) Estimated average glucose (eAG) is a calculated value from Hemoglobin A1C and is hotel services sales representative of the average blood glucose level in the last 2-3 month period. Normal range: less than 114 mg/dL Performed By: #### A DIFF, GFR, PSA, CBC, A1C, LIPID, CMP, ANEU #### [address] [address] HbA1c (Bld) [Mass fraction] 5.5 % Normal 4.3-6.4 [facility] Comment on above: Performed By: #### A DIFF, GFR, PSA, CBC, A1C, LIPID, CMP, ANEU #### [address] [address] CBCon 09-19-2024 Erythrocyte distribution width (RBC) [Ratio] 14.0 % Normal 11.5-15.5 [facility] Comment on above: Performed By: #### G FR, CMP, ANEU, ADIFF, A1C, TSH, FT3, FT4, CBC #### [address] [address] Hematocrit (Bld) [Volume fraction] 45.6 % Normal 40.0-52.0 [facility] Comment on above: Performed By: #### G FR, CMP, ANEU, ADIFF, A1C, TSH, FT3, FT4, CBC #### [place] [address] Hgb 15.6 G/dL Normal 13.0-17.5 [facility] Comment on above: Performed By: #### G FR, CMP, ANEU, ADIFF, A1C, TSH, FT3, FT4, CBC #### [place] [address] MCH (RBC) [Entitic mass] 32.3 pg Normal 27.0-33.0 [facility] Comment on above: Performed By: #### G FR, CMP, ANEU, ADIFF, A1C, TSH, FT3, FT4, CBC #### [address] [address] MCHC 34.2 G/dL Normal 32.0-36.0 [facility] Comment on above: Performed By: #### G FR, CMP, ANEU, ADIFF, A1C, TSH, FT3, FT4, CBC #### [place] [id number] MCV (RBC) [Entitic vol] 94.3 fL Normal 81.0-100.0 [facility] Comment on above: Performed By: #### G FR, CMP, ANEU, ADIFF, A1C, TSH, FT3, FT4, CBC #### [place] [id number] Platelet 169 10 3/mcL Normal 150-450 [facility] Comment on above: Performed By: #### G FR, CMP, ANEU, ADIFF, A1C, TSH, FT3, FT4, CBC #### [address] [address] Platelet mean volume (Bld) [Entitic vol] 10.2 fL Normal 6.4-10.5 [facility] Comment on above: Performed By: #### G FR, CMP, ANEU, ADIFF, A1C, TSH, FT3, FT4, CBC #### [address] [address] RBC 4.83 10 6/mcL Normal 4.50-6.00 [facility] Comment on above: Performed By: #### G FR, CMP, ANEU, ADIFF, A1C, TSH, FT3, FT4, CBC #### [address] [address] WBC 7.9 10 3/mcL Normal 4.5-10.8 [facility] Comment on above: Performed By: #### G FR, CMP, ANEU, ADIFF, A1C, TSH, FT3, FT4, CBC #### [address] [address] CMPon 09-19-2024 Albumin Level 3.8 G/dL Normal 3.4-4.8 [facility] Comment on above: Performed By: #### A DIFF, GFR, PSA, CBC, A1C, LIPID, CMP, ANEU #### [address] [address] Albumin/Globulin [Mass ratio] 1.0 {ratio} Low 1.1-2.5 [facility] Comment on above: Performed By: #### A DIFF, GFR, PSA, CBC, A1C, LIPID, CMP, ANEU #### [address] [address] ALP [Catalytic activity/Vol] 90 U/L Normal 40-135 [facility] Comment on above: Performed By: #### A DIFF, GFR, PSA, CBC, A1C, LIPID, CMP, ANEU #### [address] [address] ALT [Catalytic activity/Vol] 21 U/L Normal 16-63 [facility] Comment on above: Performed By: #### A DIFF, GFR, PSA, CBC, A1C, LIPID, CMP, ANEU #### [address] [address] AST [Catalytic activity/Vol] 15 U/L Normal 10-40 [facility] Comment on above: Performed By: #### A DIFF, GFR, PSA, CBC, A1C, LIPID, CMP, ANEU #### [address] [address] Bili Total 0.3 mg/dL Normal 0.2-1.0 [facility] Comment on above: Result Comment: Use of this assay is not recommended for patients undergoing treatment with eltrombopag due to the potential for falsely elevated results. Performed By: #### A DIFF, GFR, PSA, CBC, A1C, LIPID, CMP, ANEU #### [address] [address] BUN/Creatinine Ratio 20 ratio Normal 7-27 [facility] Comment on above: Performed By: #### A DIFF, GFR, PSA, CBC, A1C, LIPID, CMP, ANEU #### [address] [address] Calcium [Mass/Vol] 9.0 mg/dL Normal 8.4-10.2 [facility] Comment on above: Performed By: #### A DIFF, GFR, PSA, CBC, A1C, LIPID, CMP, ANEU #### [address] [address] Chloride [Moles/Vol] 102 mmol/L Normal 98-107 [facility] Comment on above: Performed By: #### A DIFF, GFR, PSA, CBC, A1C, LIPID, CMP, ANEU #### [address] [address] CO2 [Moles/Vol] 31 mmol/L Normal 23-31 [facility] Comment on above: Performed By: #### A DIFF, GFR, PSA, CBC, A1C, LIPID, CMP, ANEU #### [address] [address] Creatinine [Mass/Vol] 0.75 mg/dL Normal 0.70-1.30 [facility] Comment on above: Result Comment: Test ing performed on Siemens Dimension EXL analyzer using a modified kinetic Kvng technique. Performed By: #### A DIFF, GFR, PSA, CBC, A1C, LIPID, CMP, ANEU #### [address] [address] Electrolyte Balance 6.0 mEq/L Normal 4.0-15.0 [facility] Comment on above: Performed By: #### A DIFF, GFR, PSA, CBC, A1C, LIPID, CMP, ANEU #### [address] [address] Globulin 3.8 G/dL Normal [facility] Comment on above: Performed By: #### A DIFF, GFR, PSA, CBC, A1C, LIPID, CMP, ANEU #### [address] [address] Glucose [Mass/Vol] 83 mg/dL Normal 83-110 [facility] Comment on above: Performed By: #### A DIFF, GFR, PSA, CBC, A1C, LIPID, CMP, ANEU #### [address] [address] Potassium [Moles/Vol] 4.2 mmol/L Normal 3.5-5.1 [facility] Comment on above: Performed By: #### A DIFF, GFR, PSA, CBC, A1C, LIPID, CMP, ANEU #### [address] [address] Sodium [Moles/Vol] 139 mmol/L Normal 136-145 [facility] Comment on above: Performed By: #### A DIFF, GFR, PSA, CBC, A1C, LIPID, CMP, ANEU #### [address] [address] Total Protein 7.6 G/dL Normal 6.4-8.2 [facility] Comment on above: Performed By: #### A DIFF, GFR, PSA, CBC, A1C, LIPID, CMP, ANEU #### [address] [address] Urea nitrogen [Mass/Vol] 15 mg/dL Normal 7-18 [facility] Comment on above: Performed By: #### A DIFF, GFR, PSA, CBC, A1C, LIPID, CMP, ANEU #### [address] [address] FT3on 09-19-2024 Free T3 [Mass/Vol] 2.48 pg/mL Normal 2.30-4.00 [facility] Comment on above: Performed By: #### A DIFF, GFR, PSA, CBC, A1C, LIPID, CMP, ANEU #### [address] [address] FT4on 09-19-2024 Free T4 [Mass/Vol] 1.01 ng/dL Normal 0.76-1.46 [facility] Comment on above: Performed By: #### A DIFF, GFR, PSA, CBC, A1C, LIPID, CMP, ANEU #### [address] [address] LABORATORYOrdered By: SYSTEM SYSTEM on 09-19-2024 Albumin BCP dye [Mass/Vol] 3.8 G/dL Normal 3.4 - 4.8 G/dL AO ADM SS Albumin/Globulin [Mass ratio] 1.0 {ratio} Low 1.1 - 2.5 ratio AO ADM SS ALP [Catalytic activity/Vol] 90 U/L Normal 40 - 135 U/L AO ADM SS ALT With P-5'-P [Catalytic activity/Vol] 21 U/L Normal 16 - 63 U/L AO ADM SS AST With P-5'-P [Catalytic activity/Vol] 15 U/L Normal 10 - 40 U/L AO ADM SS Basophils (Bld) [#/Vol] 0.1 103/mcL Normal 0.0 - 0.2 10^3/mcL AO Workflow SS Basophils/100 WBC (Bld) 0.7 % Normal 0.0 - 2.5 % AO Workflow SS Bilirubin [Mass/Vol] 0.3 mg/dL Normal 0.2 - 1 .0 mg/dL AO ADM SS Comment on above: Interpretive Data: U se of this assay is not recommended for patients undergoing treatment with eltrombopag due to the potential for falsely elevated results. Calcium [Mass/Vol] 9.0 mg/dL Normal 8.4 - 10. 2 mg/dL AO ADM SS Chloride [Moles/Vol] 102 mmol/L Normal 98 - 10 7 mmol/L AO ADM SS CO2 [Moles/Vol] 31 mmol/L Normal 23 - 31 mmol/L AO ADM SS Creatinine [Mass/Vol] 0.75 mg/dL Normal 0.70 - 1.30 mg/dL AO ADM SS Comment on above: Interpretive Data: T esting performed on Siemens Dimension EXL analyzer using a modified kinetic Kvng technique. Electrolyte Balance 6.0 mEq/L Normal 4.0 - 15 .0 mEq/L AO ADM SS Eosinophil, Absolute 0.0 103/mcL Normal 0.0 - 0 .7 10^3/mcL AO Workflow SS Eosinophils/100 WBC (Bld) 0.6 % Normal 0.0 - 7.0 % AO Workflow SS Erythrocyte distribution width (RBC) [Ratio] 14.0 % Normal 11.5 - 15.5 % AO Workflow SS Free T3 [Mass/Vol] 2.48 pg/mL Normal 2.30 - 4. 00 pg/mL AO ADM SS Free T4 [Mass/Vol] 1.01 ng/dL Normal 0.76 - 1. 46 ng/dL AO ADM SS GFR/1.73 sq M.predicted among blacks MDRD (S/P/Bld) [Vol rate/Area] 122 ml/min/1.73sqm Invalid Interpretation Code AO Chemistry S Comment on above: Interpretive Data: GFR Population mean for , Non- Americans Ages 20-29 = 116 mL/min/1.73 sq.m. Ages 30-39 = 107 mL/min/1.73 sq.m. Ages 40-49 = 99 mL/min/1.73 sq.m. Ages 50-59 = 93 mL/min/1.73 sq.m. Ages 60-69 = 85 mL/min/1.73 sq.m. Ages 70+ = 75 mL/min/1.73 sq.m. Chronic Kidney Disease: Less than 60 mL/min/1.73 square meters End Stage Renal Disease: Less than 15 mL/min/1.73 square meters GFR/1.73 sq M.predicted among non-blacks MDRD (S/P/Bld) [Vol rate/Area] 101 ml/min/1.73sqm Invalid Interpretation Code AO Chemistry S Comment on above: Interpretive Data: GFR Population mean for , Non- Americans Ages 20-29 = 116 mL/min/1.73 sq.m. Ages 30-39 = 107 mL/min/1.73 sq.m. Ages 40-49 = 99 mL/min/1.73 sq.m. Ages 50-59 = 93 mL/min/1.73 sq.m. Ages 60-69 = 85 mL/min/1.73 sq.m. Ages 70+ = 75 mL/min/1.73 sq.m. Chronic Kidney Disease: Less than 60 mL/min/1.73 square meters End Stage Renal Disease: Less than 15 mL/min/1.73 square meters Globulin 3.8 G/dL Invalid Interpretation Code AO ADM SS Glucose [Mass/Vol] 111 mg/dL Invalid Interpretation Code AO Chemistry S Comment on above: Interpretive Data: E stimated average glucose (eAG) is a calculated value from Hemoglobin A1C and is hotel services sales representative of the average blood glucose level in the last 2-3 month period. Normal range: less than 114 mg/dL Glucose [Mass/Vol] 83 mg/dL Normal 83 - 110 mg/dL AO ADM SS HbA1c (Bld) [Mass fraction] 5.5 % Normal 4.3 - 6.4 % AO ADM SS Hematocrit (Bld) [Volume fraction] 45.6 % Normal 40.0 - 52.0 % AO Workflow SS Hemoglobin (Bld) [Mass/Vol] 15.6 G/dL Normal 13.0 - 17.5 G/dL AO Workflow SS Lymphocytes (Bld) [#/Vol] 1.9 103/mcL Normal 0.9 - 4.3 10^3/mcL AO Workflow SS Lymphocytes/100 WBC (Bld) 23.3 % Normal 20.0 - 40.0 % AO Workflow SS MCH (RBC) [Entitic mass] 32.3 pg Normal 27.0 - 33.0 pg AO Workflow SS MCHC 34.2 G/dL Normal 32.0 - 36.0 G/dL AO Workflow SS MCV (RBC) [Entitic vol] 94.3 fL Normal 81.0 - 100.0 fL AO Workflow SS Monocytes (Bld) [#/Vol] 0.7 103/mcL Normal 0.1 - 1.4 10^3/mcL AO Workflow SS Monocytes/100 WBC (Bld) 9.2 % Normal 2.0 - 13.0 % AO Workflow SS Neutrophils (Bld) [#/Vol] 5.3 103/mcL Normal 2.3 - 8.1 10^3/mcL AO Workflow SS Neutrophils/100 WBC (Bld) 66.2 % Normal 50.0 - 75.0 % AO Workflow SS Platelet mean volume (Bld) [Entitic vol] 10.2 fL Normal 6.4 - 10.5 fL AO Workflow SS Platelets (Bld) [#/Vol] 169 103/mcL Normal 150 - 450 10^3/mcL AO Workflow SS Potassium [Moles/Vol] 4.2 mmol/L Normal 3.5 - 5.1 mmol/L AO ADM SS Protein [Mass/Vol] 7.6 G/dL Normal 6.4 - 8.2 G/dL AO ADM SS RBC (Bld) [#/Vol] 4.83 106/mcL Normal 4.50 - 6.0 0 10^6/mcL AO Workflow SS Sodium [Moles/Vol] 139 mmol/L Normal 136 - 145 mmol/L AO ADM SS TSH Qn 2.86 m[IU]/L Normal 0.36 - 3.74 mcIU/mL AO ADM SS Urea nitrogen [Mass/Vol] 15 mg/dL Normal 7 - 18 mg/dL AO ADM SS Urea nitrogen/Creatinine [Mass ratio] 20 ratio Normal 7 - 27 ratio AO ADM SS WBC (Bld) [#/Vol] 7.9 103/mcL Normal 4.5 - 10.8 10^3/mcL AO Workflow SS TSHon 09-19-2024 TSH Qn 2.86 m[IU]/L Normal 0.36-3.74 [facility] Comment on above: Performed By: #### A DIFF, GFR, PSA, CBC, A1C, LIPID, CMP, ANEU #### [address] [address] Final Surgical Pathology Rep [facility] 09-12-2024 Final Surgical Pathology Report . Pathology Reports Accession: Collected Date/Time: Received Date/Time: Pathologist: [id number] 09/08/2024 10:27 EST 09/08/2024 11:09 JUDY FLOOD MD Final Surgical Pathology Report DIAGNOSIS: A. NECK, RIGHT, LEVEL 4 LYMPH NODE, BIOPSY: - METASTATIC ADENOCARCINOMA B. NECK, RIGHT, LEVEL 4 -6 SELECTIVE LYMPH NODE DISSECTION: - METASTATIC MUCINOUS ADENOCARCINOMA, INVOLVING 1 OF 3 LYMPH NODES Comment: The positive lymph node measures 1.4 cm in size. No evidence of extranodal extension. Immunostains were performed. The tumor cells are positive for cytokeratin 7, Napsin A and TTF-1. The tumor cells are negative for CK20 and CDX2. These features support origin from a lung primary. Correlation with clinical and radiological findings recommended. Supervisor Of Way tissue block has been sent for PD-L1/NGS molecular profiling, supplemental report will follow. CLINICAL INFORMATION: LOCALIZED SWELLING, MASS AND LUMP, NECK Procedure: RIGHT SELECTIVE NECK DISSECTION LEVELS 4-6 Preoperative diagnosis: LOCALIZED SWELLING, MASS AND LUMP, NECK Postoperative diagnosis: LOCALIZED SWELLING, MASS AND LUMP, NECK SPECIMEN: A FS/TP: RIGHT LEVEL 4 LYMPH NODE B RIGHT LEVEL 4 LYMPH NODE INTRAOPERATIVE CONSULTATION: A FS/TP DX: METASTATIC ADENOCARCINOMA. - STAINS WILL BE DONE TO CONFIRM LUNG ORIGIN. performed by Roxanna Diaz M.D. GROSS DESCRIPTION: All parts labelled with patient name and [id number] A. Received fresh for frozen section labelled right level 4 lymph node Is a 0.7 cm aggregate of white -alford fragments entirely submitted for frozen section. AFS1 -frozen section tissue resubmitted. TS-1 B. Received in formalin labelled and TTF-1 Is a yellow pink-alford portion of adipose tissue containing lymph node overall measuring 2.5 x 2 x 1.5 cm. Tissue is bisected to reveal a alford-white to carrasco scalloped shaped lymph node measuring 1.4 x 1.2 x 1.4 cm. TS-2 Ct Padilla, Pathologists' Practicing Dermatologist (ASCP) Performed by CT PADILLA MICROSCOPIC DESCRIPTION: The microscopic examination is performed, except in the case of Gross Only. Pathology Reports Accession: Collected Date/Time: Received Date/Time: Pathologist: [id number] 09/08/2024 10:27 EST 09/08/2024 11:09 JUDY FLOOD MD Electronically Signed by Pathology Report verified by [facility] JUDY DIAZ Sign out Date: 09/12/2024 08:34 Performing Lab: [facility], [address] [place] [address] Pathology Dept Disclaimer If ancillary studies were utilized, the following Laboratory Developed Test (LDT) disclaimer will apply: Under CLIA requirements, [facility] Pathology Laboratory is qualified to perform high complexity testing. For all ancillary stains, positive and negative controls stain appropriately. Performance characteristics of immunohistochemical and chromogenic in-situ hybridization tests have been determined by [facility] Pathology Laboratory. These tests are used for clinical purposes, They should not be regarded as investigational or for research. Normal [facility] APTTon 09-08-2024 aPTT Coag (Bld) [Time] 34.4 s Normal 25.0-35.0 [facility] Comment on above: Result Comment: For Heparin anticoagulation therapy, the recommended therapeutic range is: 54-77 seconds (APTT Correlation with Anti-Xa therapeutic range of 0.3-0.7 units/ml). PLEASE REFERENCE THE PHARMACY PROTOCOL FOR DOSING. Performed By: #### F IB, PLT, PRO, APTT #### [place] [address] FIBon 09-08-2024 Fibrinogen 418 mg/dL Normal 250-560 [facility] Comment on above: Performed By: #### F IB, PLT, PRO, APTT #### [place] [address] LABORATORYOrdered By: SYSTEM SYSTEM on 09-08-2024 aPTT Coag (Bld) [Time] 34.4 s Normal 25.0 - 35.0 seconds [facility] SS Comment on above: Interpretive Data: F or Heparin anticoagulation therapy, the recommended therapeutic range is: 54-77 seconds (APTT Correlation with Anti-Xa therapeutic range of 0.3-0.7 units/ml). PLEASE REFERENCE THE PHARMACY PROTOCOL FOR DOSING. Fibrinogen 418 mg/dL Normal 250 - 560 mg/dL AH [facility] SS Platelets (Bld) [#/Vol] 144 103/mcL Low 150 - 450 10^3/mcL AH Workflow SS PT Coag (PPP) [Time] 12.1 s Normal 9.0 - 1 4.4 seconds AH [facility] SS Comment on above: Interpretive Data: E ffective 03/13/08, Protime results may be affected by some antibiotics (i.e. Ciprofloxacin, Azithromycin, Bactrim) which may potentiate the action of oral anticoagulants, with further increases in Protime/INR. PT International Ratio 1.0 ratio Invalid Interpretation Code ARIELEL [facility] VALENTINE Comment on above: Interpretive Data: Shima vaca [employer] (CHEST, 1991, 102:312S-25S) recommended therapeutic range for oral anticoagulant therapy is: LOW RISK: Prophylaxis of venous thrombosis INR: 2.0-3.0 Treatment of pulmonary embolism 2.0-3.0 Prevention of systemic embolism 2.0-3.0 HIGH RISK: Mechanical prosthetic valves 2.5-3.5 PLTon 09-08-2024 Platelet 144 10 3/mcL Low 150-450 [facility] Comment on above: Performed By: #### F IB, PLT, PRO, APTT #### [facility] [address] [place] [address] PROon 09-08-2024 INR Coag (PPP) [Relative time] 1.0 {INR} Normal [facility] Comment on above: Result Comment: [employer] (CHEST, 1991, 102:312S-25S) recommended therapeutic range for oral anticoagulant therapy is: LOW RISK: Prophylaxis of venous thrombosis INR: 2.0-3.0 Treatment of pulmonary embolism 2.0-3.0 Prevention of systemic embolism 2.0-3.0 HIGH RISK: Mechanical prosthetic valves 2.5-3.5 Performed By: #### F IB, PLT, PRO, APTT #### [facility] [address] [place] [address] PT Coag (PPP) [Time] 12.1 s Normal 9.0-14.4 [facility] Comment on above: Result Comment: Effe ctive 03/13/08, Protime results may be affected by some antibiotics (i.e. Ciprofloxacin, Azithromycin, Bactrim) which may potentiate the action of oral anticoagulants, with further increases in Protime/INR. Performed By: #### F IB, PLT, PRO, APTT #### [facility] [address] [place] [address] XR CHEST 2 VIEWSon XR CHEST 2 VIEWS ORIGINAL EXAMINATION: TWO XRAY VIEWS OF THE CHEST 08/25/2024 2:56 pm COMPARISON: January 27, 2024 HISTORY: ORDERING SYSTEM PROVIDED HISTORY: Reason for Exam: copd FINDINGS: Median sternotomy wires and mediastinal surgical clips are again noted. Lungs are mildly hyperinflated. The cardiomediastinal silhouette is stable in width and contour. There is no focal consolidation, pleural effusion or pneumothorax. Mild degenerative changes of the visualized thoracic spine are noted. . IMPRESSION: No acute cardiopulmonary process. Interpreted by: Sandra Mayfield Preliminary Report By: Sandra Mayfiled Electronically signed By Sandra Mayfield Dictated Date: 08/26/2024 11:47:02 PM Prelim Date: 08/26/2024 11:47:52 PM Sign Date: 08/26/2024 11:47:52 PM Ordering Provider: QIAN Bolaños [facility] .Auto Diffon 08-25-2024 Basophil, Absolute 0.1 10 3/mcL Normal 0.0-0.3 [facility] Comment on above: Performed By: #### C BC, ANEU, ADIFF #### [address] [address] Basophils/100 WBC (Bld) 0.9 % Normal 0.0-2.5 [facility] Comment on above: Performed By: #### C BC, ANEU, ADIFF #### [address] [address] Eosinophil, Absolute 0.1 10 3/mcL Normal 0.0-0.7 [facility] Comment on above: Performed By: #### C BC, ANEU, ADIFF #### [address] [address] Eosinophils/100 WBC (Bld) 1.0 % Normal 0.0-6.0 [facility] Comment on above: Performed By: #### C BC, ANEU, ADIFF #### [address] [address] Lymphocyte, Absolute 1.9 10 3/mcL Normal 0.9-4.3 [facility] Comment on above: Performed By: #### C BC, ANEU, ADIFF #### [address] [address] Lymphocytes/100 WBC (Bld) 24.7 % Normal 20.0-40.0 [facility] Comment on above: Performed By: #### C BC, ANEU, ADIFF #### [facility] [address] [place] [address] Monocyte, Absolute 0.7 10 3/mcL Normal 0.1-1.4 [facility] Comment on above: Performed By: #### C BC, ANEU, ADIFF #### [facility] [address] [place] [address] Monocytes/100 WBC (Bld) 8.5 % Normal 2.0-13.0 [facility] Comment on above: Performed By: #### C BC, ANEU, ADIFF #### [facility] [address] [place] [address] Neutrophils/100 WBC (Bld) 64.9 % Normal 50.0-75.0 [facility] Comment on above: Performed By: #### C BC, ANEU, ADIFF #### [address] [address] .GFRon 08-25-2024 GFR >60 Normal [facility] Comment on above: Result Comment: GFR Population mean for , Non- Americans Ages 20-29 = 116 mL/min/1.73 sq.m. Ages 30-39 = 107 mL/min/1.73 sq.m. Ages 40-49 = 99 mL/min/1.73 sq.m. Ages 50-59 = 93 mL/min/1.73 sq.m. Ages 60-69 = 85 mL/min/1.73 sq.m. Ages 70+ = 75 mL/min/1.73 sq.m. Chronic Kidney Disease: Less than 60 mL/min/1.73 square meters End Stage Renal Disease: Less than 15 mL/min/1.73 square meters Performed By: #### G FR, BMP #### [address] [address] GFR Non- >60 Normal [facility] Comment on above: Result Comment: GFR Population mean for , Non- Americans Ages 20-29 = 116 mL/min/1.73 sq.m. Ages 30-39 = 107 mL/min/1.73 sq.m. Ages 40-49 = 99 mL/min/1.73 sq.m. Ages 50-59 = 93 mL/min/1.73 sq.m. Ages 60-69 = 85 mL/min/1.73 sq.m. Ages 70+ = 75 mL/min/1.73 sq.m. Chronic Kidney Disease: Less than 60 mL/min/1.73 square meters End Stage Renal Disease: Less than 15 mL/min/1.73 square meters Performed By: #### G FR, BMP #### [place] [address] .NEUABSon 08-25-2024 Neutrophil, Absolute 5.1 10 3/mcL Normal 2.3-8.1 [facility] Comment on above: Performed By: #### C BC, GUILLERMO, ADIFF #### [address] 08-25-2024 BUN/Creatinine Ratio 18.6 ratio Normal 10.0-22.0 [facility] Comment on above: Performed By: #### G FR, BMP #### [place] [address] Calcium [Mass/Vol] 9.3 mg/dL Normal 8.7-10.4 [facility] Comment on above: Performed By: #### G FR, BMP #### [place] [address] Chloride [Moles/Vol] 104 mmol/L Normal 98-110 [facility] Comment on above: Performed By: #### G FR, BMP #### [place] [address] CO2 [Moles/Vol] 28 mmol/L Normal 22-32 [facility] Comment on above: Performed By: #### G FR, BMP #### [place] [address] Creatinine [Mass/Vol] 0.70 mg/dL Normal 0.60-1.40 [facility] Comment on above: Result Comment: Test ing performed on [employer] analyzer using enzymatic creatinine methodology. Performed By: #### G FR, BMP #### [place] [address] Electrolyte Balance 7.0 mEq/L Normal 4.0-15.0 [facility] Comment on above: Performed By: #### G , BMP #### [address] [address] Glucose [Mass/Vol] 81 mg/dL Low 82-115 [facility] Comment on above: Performed By: #### G FR, BMP #### [place] [phone] Potassium [Moles/Vol] 4.2 mmol/L Normal 3.5-5.0 [facility] Comment on above: Performed By: #### G FR, BMP #### [place] [phone] Sodium [Moles/Vol] 139 mmol/L Normal 136-145 [facility] Comment on above: Performed By: #### G FR, BMP #### [place] [address] Urea nitrogen [Mass/Vol] 13.0 mg/dL Normal 8.0-22.0 [facility] Comment on above: Performed By: #### G , BMP #### [address] [address] CBCon 08-25-2024 Erythrocyte distribution width (RBC) [Ratio] 13.9 % Normal 11.5-15.5 [facility] Comment on above: Performed By: #### C GUILLERMO DALE, ADIFF #### [place] [phone] Hematocrit (Bld) [Volume fraction] 46.0 % Normal 40.0-52.0 [facility] Comment on above: Performed By: #### C SUYAPA ANEU, ADIFF #### [place] [phone] Hgb 15.8 G/dL Normal 13.0-17.5 [facility] Comment on above: Performed By: #### C SUYAPA ANEU, ADIFF #### [address] [address] MCH (RBC) [Entitic mass] 32.3 pg Normal 27.0-33.0 [facility] Comment on above: Performed By: #### C BC, ANEU, ADIFF #### [facility] [address] [place] [address] MCHC 34.4 G/dL Normal 32.0-36.0 [facility] Comment on above: Performed By: #### C BC, ANEU, ADIFF #### [facility] [address] [place] [address] MCV (RBC) [Entitic vol] 93.9 fL Normal 81.0-100.0 [facility] Comment on above: Performed By: #### C BC, ANEU, ADIFF #### [facility] [address] [place] [address] Platelet 153 10 3/mcL Normal 150-450 [facility] Comment on above: Performed By: #### C BC, ANEU, ADIFF #### [place] [address] Platelet mean volume (Bld) [Entitic vol] 10.8 fL High 6.4-10.5 [facility] Comment on above: Performed By: #### C BC, ANEU, ADIFF #### [place] [address] RBC 4.90 10 6/mcL Normal 4.50-6.00 [facility] Comment on above: Performed By: #### C BC, ANEU, ADIFF #### [place] [address] WBC 7.8 10 3/mcL Normal 4.5-10.8 [facility] Comment on above: Performed By: #### C BC, ANEU, ADIFF #### [place] [address] LABORATORYOrdered By: SYSTEM SYSTEM on 08-25-2024 Basophils (Bld) [#/Vol] 0.1 103/mcL Normal 0.0 - 0.3 10^3/mcL AH Workflow SS Basophils/100 WBC (Bld) 0.9 % Normal 0.0 - 2.5 % AH Workflow SS Calcium [Mass/Vol] 9.3 mg/dL Normal 8.7 - 10. 4 mg/dL AH ADM SS Chloride [Moles/Vol] 104 mmol/L Normal 98 - 11 0 mEq/L ADM SS CO2 [Moles/Vol] 28 mmol/L Normal 22 - 32 mEq/L AH ADM SS Creatinine [Mass/Vol] 0.70 mg/dL Normal 0.60 - 1.40 mg/dL ADM SS Comment on above: Interpretive Data: T esting performed on [employer] analyzer using enzymatic creatinine methodology. Electrolyte Balance 7.0 mEq/L Normal 4.0 - 15 .0 mEq/L ADM SS Eosinophils (Bld) [#/Vol] 0.1 103/mcL Normal 0.0 - 0.7 10^3/mcL Workflow SS Eosinophils/100 WBC (Bld) 1.0 % Normal 0.0 - 6.0 % Workflow SS Erythrocyte distribution width (RBC) [Ratio] 13.9 % Normal 11.5 - 15.5 % Workflow SS GFR/1.73 sq M.predicted among blacks MDRD (S/P/Bld) [Vol rate/Area] ml/min/1.73sqm Invalid Interpretation Code [id number] Chemistry S Comment on above: Interpretive Data: GFR Population mean for , Non- Americans Ages 20-29 = 116 mL/min/1.73 sq.m. Ages 30-39 = 107 mL/min/1.73 sq.m. Ages 40-49 = 99 mL/min/1.73 sq.m. Ages 50-59 = 93 mL/min/1.73 sq.m. Ages 60-69 = 85 mL/min/1.73 sq.m. Ages 70+ = 75 mL/min/1.73 sq.m. Chronic Kidney Disease: Less than 60 mL/min/1.73 square meters End Stage Renal Disease: Less than 15 mL/min/1.73 square meters GFR/1.73 sq M.predicted among non-blacks MDRD (S/P/Bld) [Vol rate/Area] ml/min/1.73sqm Invalid Interpretation Code [id number] Chemistry S Comment on above: Interpretive Data: GFR Population mean for , Non- Americans Ages 20-29 = 116 mL/min/1.73 sq.m. Ages 30-39 = 107 mL/min/1.73 sq.m. Ages 40-49 = 99 mL/min/1.73 sq.m. Ages 50-59 = 93 mL/min/1.73 sq.m. Ages 60-69 = 85 mL/min/1.73 sq.m. Ages 70+ = 75 mL/min/1.73 sq.m. Chronic Kidney Disease: Less than 60 mL/min/1.73 square meters End Stage Renal Disease: Less than 15 mL/min/1.73 square meters Glucose [Mass/Vol] 81 mg/dL Low 82 - 115 mg/dL ADM SS Hematocrit (Bld) [Volume fraction] 46.0 % Normal 40.0 - 52.0 % AH Workflow SS Hemoglobin (Bld) [Mass/Vol] 15.8 G/dL Normal 13.0 - 17.5 G/dL AH Workflow SS Lymphocytes (Bld) [#/Vol] 1.9 103/mcL Normal 0.9 - 4.3 10^3/mcL AH Workflow SS Lymphocytes/100 WBC (Bld) 24.7 % Normal 20.0 - 40.0 % AH Workflow SS MCH (RBC) [Entitic mass] 32.3 pg Normal 27.0 - 33.0 pg AH Workflow SS MCHC 34.4 G/dL Normal 32.0 - 36.0 G/dL AH Workflow SS MCV (RBC) [Entitic vol] 93.9 fL Normal 81.0 - 100.0 fL AH Workflow SS Monocytes (Bld) [#/Vol] 0.7 103/mcL Normal 0.1 - 1.4 10^3/mcL AH Workflow SS Monocytes/100 WBC (Bld) 8.5 % Normal 2.0 - 13.0 % AH Workflow SS Neutrophils (Bld) [#/Vol] 5.1 103/mcL Normal 2.3 - 8.1 10^3/mcL AH Workflow SS Neutrophils/100 WBC (Bld) 64.9 % Normal 50.0 - 75.0 % AH Workflow SS Platelet mean volume (Bld) [Entitic vol] 10.8 fL High 6.4 - 10.5 fL AH Workflow SS Platelets (Bld) [#/Vol] 153 103/mcL Normal 150 - 450 10^3/mcL AH Workflow SS Potassium [Moles/Vol] 4.2 mmol/L Normal 3.5 - 5.0 mEq/L ADM SS RBC (Bld) [#/Vol] 4.90 106/mcL Normal 4.50 - 6.0 0 10^6/mcL AH Workflow SS Sodium [Moles/Vol] 139 mmol/L Normal 136 - 145 mEq/L AH ADM SS Urea nitrogen [Mass/Vol] 13.0 mg/dL Normal 8.0 - 22.0 mg/dL AH ADM SS Urea nitrogen/Creatinine [Mass ratio] 18.6 ratio Normal 10.0 - 22.0 ratio AH ADM SS WBC (Bld) [#/Vol] 7.8 103/mcL Normal 4.5 - 10.8 10^3/mcL AH Workflow SS US SOFT TISSUE MASS OF HEAD OR NECKon 08-04-2024 US SOFT TISSUE MASS OF HEAD OR NECK ORIGINAL EXAMINATION: ULTRASOUND OF THE SOFT TISSUES OF THE HEAD AND NECK08/03/2024 3:36 pm Ultrasound Thyroid All images were recorded and archived. COMPARISON: PET CT July 25, 2024 HISTORY: ORDERING SYSTEM PROVIDED HISTORY: Reason for Exam: PET positive lymph node in neck; IR request US, FINDINGS: There are 3 normal appearing lymph nodes seen on this exam however the PET avid lymph node seen on prior PET-CT was not visualized on this exam. IMPRESSION: Nonvisualization of PET avid right level IV cervical lymph node. I have personally reviewed the images of this examination and agree with the resident's findings and interpretation. Interpreted by: Dago Patel DO Preliminary Report By: Carlos Alberto Miller MD Electronically signed By Dago Paetl DO Dictated Date: 08/04/2024 2:21:31 PM Prelim Date: 08/04/2024 3:40:25 PM Sign Date: 08/04/2024 3:40:25 PM Ordering Provider: MARLIN LANCASTER [facility] PET/CT INITIAL STAGING TUMOR SKULL [id number] 07-26-2024 PET/CT INITIAL STAGING TUMOR SKULL [id number] ORIGINAL EXAMINATION: PET TUMOR IMAGING SKULL-THIGH07/25/2024 10:18 am TECHNIQUE: Intravenous injection of 12 mCi Fluorine-18 fluorodeoxyglucose (FDG) was administered, followed by acquisition of positron emission tomographic images from the skull base to mid thigh, with concurrent low-dose CT for attenuation correction and anatomic localization utilizing a combined PET/CT scanner. PET images were fused with low-dose CT at the workstation. Dose [id number] time:49 min Serum glucose level: 90 mg/dl COMPARISON: CT chest 07/10/2024 HISTORY: ORDERING SYSTEM PROVIDED HISTORY: Reason for Exam: spiculated lung mass FINDINGS: NECK: No hypermetabolic soft tissue lesion within the neck. Right cervical chain level IV 8 mm short axis hypermetabolic lymph node with a max SUV of 9.2. CHEST: In the right upper lobe there is a 1.1 cm pulmonary nodule that is hypermetabolic with a max SUV of 5.4. Emphysema. Calcified granulomas are seen in the left lower lobe. No hypermetabolic mediastinal, hilar, or axillary lymphadenopathy. There are calcified left hilar lymph nodes presumably related to granulomatous disease. ABDOMEN/PELVIS: No hypermetabolic soft tissue lesion. There is a 3.4 cm infrarenal abdominal aortic aneurysm. There are calcified granulomas present in both the liver and spleen. No hypermetabolic abdominal or pelvic lymphadenopathy. Physiologic excretion of radiotracer is present within the kidneys, ureters, urinary bladder, as well as the bowel. MUSCULOSKELETAL: No hypermetabolic or suspicious osseous lesion to suggest osseous metastatic disease. Prior sternotomy. IMPRESSION: 1. Hypermetabolic right upper lobe pulmonary is suspicious with malignancy. 2. Right cervical chain hypermetabolic node is suspicious for metastasis. 3. Abdominal aortic aneurysm measures 3.4 cm. Imaging follow-up is recommended in 3 years. I have personally reviewed the images of this examination and agree with the resident's findings and interpretations. Interpreted by: Marlin Lerner MD Preliminary Report By: Ruben Altamirano Electronically signed By Marlin Lerner MD Dictated Date: 07/25/2024 3:08:06 PM Prelim Date: 07/26/2024 12:14:50 PM Sign Date: 07/26/2024 12:14:50 PM Ordering Provider: MARLIN LANCASTER [facility] MAIN CT THORAX SCREENING W/O CONT [facility] 07-11-2024 CT THORAX SCREENING W/O CONTRAST ORIGINAL EXAMINATION: LOW DOSE SCREENING CT OF THE CHEST WITHOUT WQNVRQVC68/11/2024 5:54 pm TECHNIQUE: Low dose lung cancer screening CT of the chest was performed without the administration of intravenous contrast. Multiplanar reformatted images are provided for review. Automated exposure control, iterative reconstruction, and/or weight based adjustment of the mA/kV was utilized to reduce the radiation dose to as low as reasonably achievable. COMPARISON: None. HISTORY: ORDERING SYSTEM PROVIDED HISTORY: Reason for Exam: Lung Cancer Screening 107 pack year hx. Current smoker. Hx COPD. No current chest complaints. 107 pack-year history. FINDINGS: The heart is normal in size. Sternotomy wires are present. Atherosclerosis seen of the coronary arteries and aorta. The great vessels appear normal in caliber. Partially calcified bilateral hilar lymph nodes more prominent in the left. Calcifications are seen in the liver and spleen which are likely sequela of prior granulomatous process. Left nephrolithiasis. There is a 1.7 cm hypodense lesion in the gastric fundus which measures -56 Hounsfield units. The abdomen is not evaluated in detail. Scattered areas of pleural and parenchymal scarring. No pulmonary consolidation is identified. No pneumothorax or pleural effusion.Calcified granuloma in the right lower lobe. 9 mm subpleural nodule with irregular margins in the right upper lobe seen on image 31 of series 2. Adjacent to this nodule is a small area of ground-glass opacification. Small calcified nodule seen in the left lower lobe. There are bilateral ground-glass opacities located peripherally and anteriorly in the upper lobes. Subpleural reticular opacities seen in the thorax. No aggressive osseous lesions visible. Degenerative changes seen in the spine. Small sclerotic focus at the distal body/head of the right clavicle. IMPRESSION: Spiculated 9 mm right upper lobe nodule. PET-CT advised. Emphysema with superimposed interstitial disease Information below is for Lung nodule tracking purposes: Nodule: S10 Other Findings: P-CAC Change: Na Recall : Immediately Recall Type: PET LungRads: 4As The findings were sent to the Radiology Results Communication Center at 2:15 pm on 07/11/2024 to be communicated to a licensed caregiver. I have personally reviewed the images of this examination and agree with the resident's findings and interpretation. Interpreted by: Dago Lan MD Preliminary Report By: Tyler De Leon Electronically signed By Dago Lan MD Dictated Date: 07/11/2024 1:46:12 PM Prelim Date: 07/11/2024 2:16:41 PM Sign Date: 07/11/2024 2:16:41 PM Ordering Provider: MARLIN Bolaños [facility] .Auto Diffon 06-23-2024 Basophil, Absolute 0.1 10 3/mcL Normal 0.0-0.2 [facility] Comment on above: Performed By: #### A DIFF, GFR, PSA, CBC, A1C, LIPID, CMP, ANEU #### [address] [address] Basophils/100 WBC (Bld) 1.0 % Normal 0.0-2.5 [facility] Comment on above: Performed By: #### A DIFF, GFR, PSA, CBC, A1C, LIPID, CMP, ANEU #### [address] [address] Eosinophil, Absolute 0.1 10 3/mcL Normal 0.0-0.7 [facility] Comment on above: Performed By: #### A DIFF, GFR, PSA, CBC, A1C, LIPID, CMP, ANEU #### [address] [address] Eosinophils/100 WBC (Bld) 1.0 % Normal 0.0-7.0 [facility] Comment on above: Performed By: #### A DIFF, GFR, PSA, CBC, A1C, LIPID, CMP, ANEU #### [address] [address] Lymphocyte, Absolute 2.0 10 3/mcL Normal 0.9-4.3 [facility] Comment on above: Performed By: #### A DIFF, GFR, PSA, CBC, A1C, LIPID, CMP, ANEU #### [address] [address] Lymphocytes/100 WBC (Bld) 26.0 % Normal 20.0-40.0 [facility] Comment on above: Performed By: #### A DIFF, GFR, PSA, CBC, A1C, LIPID, CMP, ANEU #### [address] [address] Monocyte, Absolute 0.7 10 3/mcL Normal 0.1-1.4 [facility] Comment on above: Performed By: #### A DIFF, GFR, PSA, CBC, A1C, LIPID, CMP, ANEU #### [address] [address] Monocytes/100 WBC (Bld) 9.4 % Normal 2.0-13.0 [facility] Comment on above: Performed By: #### A DIFF, GFR, PSA, CBC, A1C, LIPID, CMP, ANEU #### [address] [address] Neutrophils/100 WBC (Bld) 62.6 % Normal 50.0-75.0 [facility] Comment on above: Performed By: #### A DIFF, GFR, PSA, CBC, A1C, LIPID, CMP, ANEU #### [address] [address] .GFRon 06-23-2024 GFR Non- 87 ml/min/1.73sqm [facility] Comment on above: Result Comment: GFR Population mean for , Non- Americans Ages 20-29 = 116 mL/min/1.73 sq.m. Ages 30-39 = 107 mL/min/1.73 sq.m. Ages 40-49 = 99 mL/min/1.73 sq.m. Ages 50-59 = 93 mL/min/1.73 sq.m. Ages 60-69 = 85 mL/min/1.73 sq.m. Ages 70+ = 75 mL/min/1.73 sq.m. Chronic Kidney Disease: Less than 60 mL/min/1.73 square meters End Stage Renal Disease: Less than 15 mL/min/1.73 square meters Performed By: #### A DIFF, GFR, PSA, CBC, A1C, LIPID, CMP, ANEU #### [address] [address] GFR 106 ml/min/1.73sqm [facility] Comment on above: Result Comment: GFR Population mean for , Non- Americans Ages 20-29 = 116 mL/min/1.73 sq.m. Ages 30-39 = 107 mL/min/1.73 sq.m. Ages 40-49 = 99 mL/min/1.73 sq.m. Ages 50-59 = 93 mL/min/1.73 sq.m. Ages 60-69 = 85 mL/min/1.73 sq.m. Ages 70+ = 75 mL/min/1.73 sq.m. Chronic Kidney Disease: Less than 60 mL/min/1.73 square meters End Stage Renal Disease: Less than 15 mL/min/1.73 square meters Performed By: #### A DIFF, GFR, PSA, CBC, A1C, LIPID, CMP, ANEU #### [address] [address] .NEUABSon 06-23-2024 Neutrophil, Absolute 4.9 10 3/mcL Normal 2.3-8.1 [facility] Comment on above: Performed By: #### A DIFF, GFR, PSA, CBC, A1C, LIPID, CMP, ANEU #### [address] [address] A1Con 06-23-2024 Glucose [Mass/Vol] 100 mg/dL Normal [facility] Comment on above: Order Comment: cc re sults to [employer] MARBLE MACHINE OPERATOR Result Comment: Marlyn mated Average Glucose calculated by equation ((28.7xA1C)-46.7) Estimated average glucose (eAG) is a calculated value from Hemoglobin A1C and is hotel services sales representative of the average blood glucose level in the last 2-3 month period. Normal range: less than 114 mg/dL Performed By: #### A DIFF, GFR, PSA, CBC, A1C, LIPID, CMP, ANEU #### [address] [address] HbA1c (Bld) [Mass fraction] 5.1 % Normal 4.3-6.4 [facility] Comment on above: Order Comment: cc re sults to [employer] MARBLE MACHINE OPERATOR Performed By: #### A DIFF, GFR, PSA, CBC, A1C, LIPID, CMP, ANEU #### [address] [address] CBCon 06-23-2024 Erythrocyte distribution width (RBC) [Ratio] 14.1 % Normal 11.5-15.5 [facility] Comment on above: Order Comment: cc re sults to [employer] MARBLE MACHINE OPERATOR Performed By: #### A DIFF, GFR, PSA, CBC, A1C, LIPID, CMP, ANEU #### [address] [address] Hematocrit (Bld) [Volume fraction] 46.3 % Normal 40.0-52.0 [facility] Comment on above: Order Comment: cc re sults to Reilly Fish MARBLE MACHINE OPERATOR Performed By: #### A DIFF, GFR, PSA, CBC, A1C, LIPID, CMP, ANEU #### [address] [address] Hgb 15.7 G/dL Normal 13.0-17.5 [facility] Comment on above: Order Comment: cc re sults to Reilly Fish MARBLE MACHINE OPERATOR Performed By: #### A DIFF, GFR, PSA, CBC, A1C, LIPID, CMP, ANEU #### [address] [address] MCH (RBC) [Entitic mass] 32.1 pg Normal 27.0-33.0 [facility] Comment on above: Order Comment: cc re sults to Reilly Fish MARBLE MACHINE OPERATOR Performed By: #### A DIFF, GFR, PSA, CBC, A1C, LIPID, CMP, ANEU #### [place] [address] MCHC 33.9 G/dL Normal 32.0-36.0 [facility] Comment on above: Order Comment: cc re sults to Reilly Fish MARBLE MACHINE OPERATOR Performed By: #### A DIFF, GFR, PSA, CBC, A1C, LIPID, CMP, ANEU #### [address] [address] MCV (RBC) [Entitic vol] 94.5 fL Normal 81.0-100.0 [facility] Comment on above: Order Comment: cc re sults to Reilly Fish MARBLE MACHINE OPERATOR Performed By: #### A DIFF, GFR, PSA, CBC, A1C, LIPID, CMP, ANEU #### [address] [address] Platelet 158 10 3/mcL Normal 150-450 [facility] Comment on above: Order Comment: cc re sults to Reilly Fish MARBLE MACHINE OPERATOR Performed By: #### A DIFF, GFR, PSA, CBC, A1C, LIPID, CMP, ANEU #### [address] [address] Platelet mean volume (Bld) [Entitic vol] 10.1 fL Normal 6.4-10.5 [facility] Comment on above: Order Comment: cc re sults to Reilly Fish MARBLE MACHINE OPERATOR Performed By: #### A DIFF, GFR, PSA, CBC, A1C, LIPID, CMP, ANEU #### [address] [address] RBC 4.90 10 6/mcL Normal 4.50-6.00 [facility] Comment on above: Order Comment: cc re sults to Reilly Fish MARBLE MACHINE OPERATOR Performed By: #### A DIFF, GFR, PSA, CBC, A1C, LIPID, CMP, ANEU #### [address] [address] WBC 7.8 10 3/mcL Normal 4.5-10.8 [facility] Comment on above: Order Comment: cc re sults to Reilly Fish MARBLE MACHINE OPERATOR Performed By: #### A DIFF, GFR, PSA, CBC, A1C, LIPID, CMP, ANEU #### [address] [address] CMPon 06-23-2024 Albumin Level 3.9 G/dL Normal 3.4-4.8 [facility] Comment on above: Order Comment: cc re sults to Reilly Fish MARBLE MACHINE OPERATOR Performed By: #### A DIFF, GFR, PSA, CBC, A1C, LIPID, CMP, ANEU #### [address] [address] Albumin/Globulin [Mass ratio] 1.2 {ratio} Normal 1.1-2.5 [facility] Comment on above: Order Comment: cc re sults to Reilly Fish MARBLE MACHINE OPERATOR Performed By: #### A DIFF, GFR, PSA, CBC, A1C, LIPID, CMP, ANEU #### [address] [address] ALP [Catalytic activity/Vol] 72 U/L Normal 40-135 [facility] Comment on above: Order Comment: cc re sults to Reilly Fish MARBLE MACHINE OPERATOR Performed By: #### A DIFF, GFR, PSA, CBC, A1C, LIPID, CMP, ANEU #### [address] [address] ALT [Catalytic activity/Vol] 23 U/L Normal 16-63 [facility] Comment on above: Order Comment: cc re sults to Reilly Fish MARBLE MACHINE OPERATOR Performed By: #### A DIFF, GFR, PSA, CBC, A1C, LIPID, CMP, ANEU #### [address] [address] AST [Catalytic activity/Vol] 14 U/L Normal 10-40 [facility] Comment on above: Order Comment: cc re sults to Reilly Fish MARBLE MACHINE OPERATOR Performed By: #### A DIFF, GFR, PSA, CBC, A1C, LIPID, CMP, ANEU #### [address] [address] Bili Total 0.6 mg/dL Normal 0.2-1.0 [facility] Comment on above: Order Comment: cc re sults to Reilly Fish MARBLE MACHINE OPERATOR Result Comment: Use of this assay is not recommended for patients undergoing treatment with eltrombopag due to the potential for falsely elevated results. Performed By: #### A DIFF, GFR, PSA, CBC, A1C, LIPID, CMP, ANEU #### [address] [address] BUN/Creatinine Ratio 8 ratio Normal 7-27 [facility] Comment on above: Order Comment: cc re sults to Reilly Fish MARBLE MACHINE OPERATOR Performed By: #### A DIFF, GFR, PSA, CBC, A1C, LIPID, CMP, ANEU #### [address] [address] Calcium [Mass/Vol] 8.8 mg/dL Normal 8.4-10.2 [facility] Comment on above: Order Comment: cc re sults to Reilly Fish MARBLE MACHINE OPERATOR Performed By: #### A DIFF, GFR, PSA, CBC, A1C, LIPID, CMP, ANEU #### [address] [address] Chloride [Moles/Vol] 102 mmol/L Normal 98-107 [facility] Comment on above: Order Comment: cc re sults to Reilly Fish MARBLE MACHINE OPERATOR Performed By: #### A DIFF, GFR, PSA, CBC, A1C, LIPID, CMP, ANEU #### [address] [address] CO2 [Moles/Vol] 32 mmol/L High 23-31 [facility] Comment on above: Order Comment: cc re sults to Reilly Fish MARBLE MACHINE OPERATOR Performed By: #### A DIFF, GFR, PSA, CBC, A1C, LIPID, CMP, ANEU #### [address] [address] Creatinine [Mass/Vol] 0.85 mg/dL Normal 0.70-1.30 [facility] Comment on above: Order Comment: cc re sults to Reilly Fish MARBLE MACHINE OPERATOR Result Comment: Test ing performed on [employer] Dimension EXL analyzer using a modified kinetic Kvng technique. Performed By: #### A DIFF, GFR, PSA, CBC, A1C, LIPID, CMP, ANEU #### [address] [address] Electrolyte Balance 6.0 mEq/L Normal 4.0-15.0 [facility] Comment on above: Order Comment: cc re sults to Reilly Fish MARBLE MACHINE OPERATOR Performed By: #### A DIFF, GFR, PSA, CBC, A1C, LIPID, CMP, ANEU #### [address] [address] Globulin 3.2 G/dL Normal [facility] Comment on above: Order Comment: cc re sults to Reilly Fish MARBLE MACHINE OPERATOR Performed By: #### A DIFF, GFR, PSA, CBC, A1C, LIPID, CMP, ANEU #### [address] [address] Glucose [Mass/Vol] 90 mg/dL Normal 83-110 [facility] Comment on above: Order Comment: cc re sults to Reilly Fish MARBLE MACHINE OPERATOR Performed By: #### A DIFF, GFR, PSA, CBC, A1C, LIPID, CMP, ANEU #### [address] [address] Potassium [Moles/Vol] 3.9 mmol/L Normal 3.5-5.1 [facility] Comment on above: Order Comment: cc re sults to Reilly Fish MARBLE MACHINE OPERATOR Performed By: #### A DIFF, GFR, PSA, CBC, A1C, LIPID, CMP, ANEU #### [address] [address] Sodium [Moles/Vol] 140 mmol/L Normal 136-145 [facility] Comment on above: Order Comment: cc re sults to Reilly Fish MARBLE MACHINE OPERATOR Performed By: #### A DIFF, GFR, PSA, CBC, A1C, LIPID, CMP, ANEU #### [address] [address] Total Protein 7.1 G/dL Normal 6.4-8.2 [facility] Comment on above: Order Comment: cc re sults to Reilly Fish MARBLE MACHINE OPERATOR Performed By: #### A DIFF, GFR, PSA, CBC, A1C, LIPID, CMP, ANEU #### [address] [address] Urea nitrogen [Mass/Vol] 7 mg/dL Normal 7-18 [facility] Comment on above: Order Comment: cc re sults to Reilly Fish MARBLE MACHINE OPERATOR Performed By: #### A DIFF, GFR, PSA, CBC, A1C, LIPID, CMP, ANEU #### [address] [address] LABORATORYOrdered By: Jewell Petersen on 06-23-2024 Albumin DL <= 20 mg/L (U) [Mass/Vol] 1633 mcg/dL Invalid Interpretation Code AO ADM SS Albumin/Creatinine DL <= 20 mg/L (U) [Mass ratio] 9 mcg/mg Normal 0 - 30 mcg/mg AO ADM SS Creatinine (U) [Mass/Vol] 181.9 mg/dL Normal 39.0 - 259.0 mg/dL AO ADM SS Cholesterol [Mass/Vol] 166 mg/dL Normal 0 - 200 mg/dL AO ADM SS Comment on above: Interpretive Data: C holesterol Reference Interval: Less than 200 Desirable 200-239 Borderline high risk 240 and above High risk Cholesterol in HDL [Mass/Vol] 48 mg/dL Normal 40 - 60 mg/dL AO ADM SS Cholesterol in LDL [Mass/Vol] 91 mg/dL Normal 0 - 130 mg/dL AO ADM SS Triglyceride [Mass/Vol] 134 mg/dL Normal 0 - 150 mg/dL AO ADM SS Comment on above: Interpretive Data: T riglyceride Reference Interval: Less than 150 Normal 150-199 Borderline high risk 200-499 High risk 500 or higher Very high risk LABORATORYOrdered By: SYSTEM SYSTEM on 06-23-2024 Albumin BCP dye [Mass/Vol] 3.9 G/dL Normal 3.4 - 4.8 G/dL AO ADM SS Albumin/Globulin [Mass ratio] 1.2 {ratio} Normal 1.1 - 2.5 ratio AO ADM SS ALP [Catalytic activity/Vol] 72 U/L Normal 40 - 135 U/L AO ADM SS ALT With P-5'-P [Catalytic activity/Vol] 23 U/L Normal 16 - 63 U/L AO ADM SS AST With P-5'-P [Catalytic activity/Vol] 14 U/L Normal 10 - 40 U/L AO ADM SS Basophils (Bld) [#/Vol] 0.1 103/mcL Normal 0.0 - 0.2 10^3/mcL AO Workflow SS Basophils/100 WBC (Bld) 1.0 % Normal 0.0 - 2.5 % AO Workflow SS Bilirubin [Mass/Vol] 0.6 mg/dL Normal 0.2 - 1 .0 mg/dL AO ADM SS Comment on above: Interpretive Data: U se of this assay is not recommended for patients undergoing treatment with eltrombopag due to the potential for falsely elevated results. Calcium [Mass/Vol] 8.8 mg/dL Normal 8.4 - 10. 2 mg/dL AO ADM SS Chloride [Moles/Vol] 102 mmol/L Normal 98 - 10 7 mmol/L AO ADM SS CO2 [Moles/Vol] 32 mmol/L High 23 - 31 mmol/L AO ADM SS Creatinine [Mass/Vol] 0.85 mg/dL Normal 0.70 - 1.30 mg/dL AO ADM SS Comment on above: Interpretive Data: T esting performed on [employer] Dimension EXL analyzer using a modified kinetic Kvng technique. Electrolyte Balance 6.0 mEq/L Normal 4.0 - 15 .0 mEq/L AO ADM SS Eosinophil, Absolute 0.1 103/mcL Normal 0.0 - 0 .7 10^3/mcL AO Workflow SS Eosinophils/100 WBC (Bld) 1.0 % Normal 0.0 - 7.0 % AO Workflow SS Erythrocyte distribution width (RBC) [Ratio] 14.1 % Normal 11.5 - 15.5 % AO Workflow SS GFR/1.73 sq M.predicted among blacks MDRD (S/P/Bld) [Vol rate/Area] 106 ml/min/1.73sqm Invalid Interpretation Code AO Chemistry S Comment on above: Interpretive Data: GFR Population mean for , Non- Americans Ages 20-29 = 116 mL/min/1.73 sq.m. Ages 30-39 = 107 mL/min/1.73 sq.m. Ages 40-49 = 99 mL/min/1.73 sq.m. Ages 50-59 = 93 mL/min/1.73 sq.m. Ages 60-69 = 85 mL/min/1.73 sq.m. Ages 70+ = 75 mL/min/1.73 sq.m. Chronic Kidney Disease: Less than 60 mL/min/1.73 square meters End Stage Renal Disease: Less than 15 mL/min/1.73 square meters GFR/1.73 sq M.predicted among non-blacks MDRD (S/P/Bld) [Vol rate/Area] 87 ml/min/1.73sqm Invalid Interpretation Code AO Chemistry S Comment on above: Interpretive Data: GFR Population mean for , Non- Americans Ages 20-29 = 116 mL/min/1.73 sq.m. Ages 30-39 = 107 mL/min/1.73 sq.m. Ages 40-49 = 99 mL/min/1.73 sq.m. Ages 50-59 = 93 mL/min/1.73 sq.m. Ages 60-69 = 85 mL/min/1.73 sq.m. Ages 70+ = 75 mL/min/1.73 sq.m. Chronic Kidney Disease: Less than 60 mL/min/1.73 square meters End Stage Renal Disease: Less than 15 mL/min/1.73 square meters Globulin 3.2 G/dL Invalid Interpretation Code AO ADM SS Glucose [Mass/Vol] 90 mg/dL Normal 83 - 110 mg/dL AO ADM SS Glucose [Mass/Vol] 100 mg/dL Invalid Interpretation Code AO Chemistry S Comment on above: Interpretive Data: E stimated average glucose (eAG) is a calculated value from Hemoglobin A1C and is hotel services sales representative of the average blood glucose level in the last 2-3 month period. Normal range: less than 114 mg/dL HbA1c (Bld) [Mass fraction] 5.1 % Normal 4.3 - 6.4 % AO ADM SS Hematocrit (Bld) [Volume fraction] 46.3 % Normal 40.0 - 52.0 % AO Workflow SS Hemoglobin (Bld) [Mass/Vol] 15.7 G/dL Normal 13.0 - 17.5 G/dL AO Workflow SS Lymphocytes (Bld) [#/Vol] 2.0 103/mcL Normal 0.9 - 4.3 10^3/mcL AO Workflow SS Lymphocytes/100 WBC (Bld) 26.0 % Normal 20.0 - 40.0 % AO Workflow SS MCH (RBC) [Entitic mass] 32.1 pg Normal 27.0 - 33.0 pg AO Workflow SS MCHC 33.9 G/dL Normal 32.0 - 36.0 G/dL AO Workflow SS MCV (RBC) [Entitic vol] 94.5 fL Normal 81.0 - 100.0 fL AO Workflow SS Monocytes (Bld) [#/Vol] 0.7 103/mcL Normal 0.1 - 1.4 10^3/mcL AO Workflow SS Monocytes/100 WBC (Bld) 9.4 % Normal 2.0 - 13.0 % AO Workflow SS Neutrophils (Bld) [#/Vol] 4.9 103/mcL Normal 2.3 - 8.1 10^3/mcL AO Workflow SS Neutrophils/100 WBC (Bld) 62.6 % Normal 50.0 - 75.0 % AO Workflow SS Platelet mean volume (Bld) [Entitic vol] 10.1 fL Normal 6.4 - 10.5 fL AO Workflow SS Platelets (Bld) [#/Vol] 158 103/mcL Normal 150 - 450 10^3/mcL AO Workflow SS Potassium [Moles/Vol] 3.9 mmol/L Normal 3.5 - 5.1 mmol/L AO ADM SS Prostate specific Ag [Mass/Vol] 0.96 ng/mL Normal 0.00 - 4.00 ng/mL AO ADM SS Protein [Mass/Vol] 7.1 G/dL Normal 6.4 - 8.2 G/dL AO ADM SS RBC (Bld) [#/Vol] 4.90 106/mcL Normal 4.50 - 6.0 0 10^6/mcL AO Workflow SS Sodium [Moles/Vol] 140 mmol/L Normal 136 - 145 mmol/L AO ADM SS Urea nitrogen [Mass/Vol] 7 mg/dL Normal 7 - 18 mg/dL AO ADM SS Urea nitrogen/Creatinine [Mass ratio] 8 ratio Normal 7 - 27 ratio AO ADM SS WBC (Bld) [#/Vol] 7.8 103/mcL Normal 4.5 - 10.8 10^3/mcL AO Workflow SS LIPIDon 06-23-2024 Cholesterol [Mass/Vol] 166 mg/dL Normal 0-200 [facility] Comment on above: Order Comment: cc re suljudith to [employer] MARBLE MACHINE OPERATOR Result Comment: Chol esterol Reference Interval: Less than 200 Desirable 200-239 Borderline high risk 240 and above High risk Performed By: #### A DIFF, GFR, PSA, CBC, A1C, LIPID, CMP, ANEU #### [address] [address] Cholesterol in HDL [Mass/Vol] 48 mg/dL Normal 40-60 [facility] Comment on above: Order Comment: cc robert giles to Reilly Fish MARBLE MACHINE OPERATOR Performed By: #### A DIFF, GFR, PSA, CBC, A1C, LIPID, CMP, ANEU #### [address] [address] Cholesterol in LDL [Mass/Vol] 91 mg/dL Normal 0-130 [facility] Comment on above: Order Comment: cc robert suljudith to Reilly Fish MARBLE MACHINE OPERATOR Performed By: #### A DIFF, GFR, PSA, CBC, A1C, LIPID, CMP, ANEU #### [address] [address] Triglyceride [Mass/Vol] 134 mg/dL Normal 0-150 [facility] Comment on above: Order Comment: cc re suljudith to Reilly [employer] MARBLE MACHINE OPERATOR Result Comment: Trig lyceride Reference Interval: Less than 150 Normal 150-199 Borderline high risk 200-499 High risk 500 or higher Very high risk Performed By: #### A DIFF, GFR, PSA, CBC, A1C, LIPID, CMP, ANEU #### [address] [address] MALBRon 06-23-2024 U Creatinine 181.9 mg/dL Normal 39.0-259.0 [facility] Comment on above: Order Comment: cc re sults to Reilly Fish MARBLE MACHINE OPERATOR Performed By: #### A DIFF, GFR, PSA, CBC, A1C, LIPID, CMP, ANEU #### [address] [address] U Microalb 1633 mcg/dL Normal [facility] Comment on above: Order Comment: cc re sults to Reilly Fish MARBLE MACHINE OPERATOR Performed By: #### A DIFF, GFR, PSA, CBC, A1C, LIPID, CMP, ANEU #### [address] [address] U Ratio Alb/Cre 9 mcg/mg Normal 0-30 [facility] Comment on above: Order Comment: cc re sults to Reilly Fish MARBLE MACHINE OPERATOR Performed By: #### A DIFF, GFR, PSA, CBC, A1C, LIPID, CMP, ANEU #### [address] [address] PSAon 06-23-2024 Prostate Specific Antigen 0.96 ng/mL Normal 0.00-4.00 [facility] Comment on above: Order Comment: cc re sults to Reilly Fish MARBLE MACHINE OPERATOR Performed By: #### A DIFF, GFR, PSA, CBC, A1C, LIPID, CMP, ANEU #### [address] [address] LABORATORYOrdered By: Teresa Dumont on 03-20-2024 Cholesterol [Mass/Vol] 160 mg/dL Normal 0 - 200 mg/dL AO ADM SS Comment on above: Interpretive Data: C holesterol Reference Interval: Less than 200 Desirable 200-239 Borderline high risk 240 and above High risk Cholesterol in HDL [Mass/Vol] 45 mg/dL Normal 40 - 60 mg/dL AO ADM SS Cholesterol in LDL [Mass/Vol] 87 mg/dL Normal 0 - 130 mg/dL AO ADM SS Triglyceride [Mass/Vol] 138 mg/dL Normal 0 - 150 mg/dL AO ADM SS Comment on above: Interpretive Data: T riglyceride Reference Interval: Less than 150 Normal 150-199 Borderline high risk 200-499 High risk 500 or higher Very high risk LIPIDon 03-20-2024 Cholesterol [Mass/Vol] 160 mg/dL Normal 0-200 [facility] Include [facility] ([place]) Comment on above: Result Comment: Chol esterol Reference Interval: Less than 200 Desirable 200-239 Borderline high risk 240 and above High risk Performed By: #### L IPID #### [address] [address] Cholesterol in HDL [Mass/Vol] 45 mg/dL Normal 40-60 Counts Include [facility] ([place]) Comment on above: Performed By: #### L IPID #### [address] [address] Cholesterol in LDL [Mass/Vol] 87 mg/dL Normal 0-130 Counts Include [facility] ([place] Comment on above: Performed By: #### L IPID #### [address] [address] Triglyceride [Mass/Vol] 138 mg/dL Normal 0-150 Counts Include [facility] ([place]) Comment on above: Result Comment: Trig lyceride Reference Interval: Less than 150 Normal 150-199 Borderline high risk 200-499 High risk 500 or higher Very high risk Performed By: #### L IPID #### [place] [id number] [place], [place] [address] CT HEAD OR BRAIN W/O CONTRAS Ton 02-16-2024 CT HEAD OR BRAIN W/O CONTRAST ORIGINAL EXAMINATION: CT OF THE HEAD WITHOUT CONTRAST 02/15/2024 2:36 pm TECHNIQUE: CT of the head was performed without the administration of intravenous contrast. Automated exposure control, iterative reconstruction, and/or weight based adjustment of the mA/kV was utilized to reduce the radiation dose to as low as reasonably achievable. COMPARISON: 10/20/2021 HISTORY: ORDERING SYSTEM PROVIDED HISTORY: Reason for Exam: new balance problem, history of CAD, tobacco use, rule out CVA FINDINGS: There is no acute intracranial hemorrhage, hydrocephalus, or mass effect. Ventricular caliber is not significantly changed from the prior examinations redemonstration of mild age-related atrophy. Scattered white matter hypodensities are nonspecific but may represent mild chronic microvascular angiopathy in a patient of this age. Carrasco-white differentiation appears maintained without CT evidence of large acute territorial infarct. Included paranasal sinuses demonstrate areas of trace mucosal thickening. Included mastoid air cells are predominantly clear with trace nonspecific fluid on the right. Soft tissue density in the right external auditory canal could reflect cerumen but would be amenable to direct visualization. No acute calvarial abnormality. Bilateral lens replacements. Partially empty sella is likely incidental in a patient of this age. Atherosclerotic calcifications are present in the cavernous carotid arteries. IMPRESSION: No acute intracranial hemorrhage, hydrocephalus, mass effect, or CT evidence of large acute territorial infarct. If there is concern for acute infarct, MRI has improved sensitivity. Interpreted by: Cici Santos MD Preliminary Report By: Cici Santos MD Electronically signed By Cici Santos MD Dictated Date: 02/16/2024 7:55:45 AM Prelim Date: 02/16/2024 8:01:57 AM Sign Date: 02/16/2024 8:01:57 AM Ordering Provider: DAMARIS Bolaños Counts Include [facility] ([place]) XR CHEST 2 VIEWSon XR CHEST 2 VIEWS ORIGINAL EXAMINATION: TWO XRAY VIEWS OF THE CHEST 01/27/2024 3:23 pm COMPARISON: Chest x-ray on 09/08/2023 HISTORY: ORDERING SYSTEM PROVIDED HISTORY: Reason for Exam: rhonchi, tobacco use, rule out pneumonia FINDINGS: Patient has had sternotomy. The heart size is normal. The lungs are hyperexpanded. There is no lung infiltrate or edema. No pneumothorax or pleural fluid is present. There is mild thoracic spondylosis with no fracture or subluxation. No acute skeletal abnormality is present. IMPRESSION: 1. Chronic obstructive pulmonary disease. 2. No acute findings. Interpreted by: Yariel Negron MD Preliminary Report By: Yariel Negron MD Electronically signed By Yariel Negron MD Dictated Date: 01/28/2024 12:23:58 AM Prelim Date: 01/28/2024 12:25:07 AM Sign Date: 01/28/2024 12:25:07 AM Ordering Provider: DAMARIS Bolaños Counts Include [facility] ([place]) .Auto Diffon 01-27-2024 Basophil, Absolute 0.0 10 3/mcL Normal 0.0-0.2 [facility] ([place]) Comment on above: Performed By: #### T SH, GFR, ADIFF, PBNP, ANEU, CBC, CMP #### [address] [address] Basophils/100 WBC (Bld) 0.6 % Normal 0.0-2.5 Counts Include [facility] ([place]) Comment on above: Performed By: #### T SH, GFR, ADIFF, PBNP, ANEU, CBC, CMP #### [address] [address] Eosinophil, Absolute 0.0 10 3/mcL Normal 0.0-0.4 [facility] ([place]) Comment on above: Performed By: #### T SH, GFR, ADIFF, PBNP, ANEU, CBC, CMP #### [address] [address] Eosinophils/100 WBC (Bld) 0.5 % Normal 0.0-7.0 Counts Include [facility] ([place]) Comment on above: Performed By: #### T SH, GFR, ADIFF, PBNP, ANEU, CBC, CMP #### [address] [address] Lymphocyte, Absolute 2.3 10 3/mcL Normal 0.8-3.9 [facility] ([place]) Comment on above: Performed By: #### T SH, GFR, ADIFF, PBNP, ANEU, CBC, CMP #### [address] [address] Lymphocytes/100 WBC (Bld) 31.2 % Normal 10.0-50.0 Counts Include [facility] ([place] Comment on above: Performed By: #### T SH, GFR, ADIFF, PBNP, ANEU, CBC, CMP #### [address] [address] Monocyte, Absolute 0.5 10 3/mcL Normal 0.2-1.0 [facility] ([place]) Comment on above: Performed By: #### T SH, GFR, ADIFF, PBNP, ANEU, CBC, CMP #### [address] [address] Monocytes/100 WBC (Bld) 6.8 % Normal 1.7-13.0 Counts Include [facility] ([place]) Comment on above: Performed By: #### T SH, GFR, ADIFF, PBNP, ANEU, CBC, CMP #### [address] [address] Neutrophils/100 WBC (Bld) 60.9 % Normal 37.0-80.0 Counts Include [facility] ([place]) Comment on above: Performed By: #### T SH, GFR, ADIFF, PBNP, ANEU, CBC, CMP #### [address] [address] .GFRon 01-27-2024 GFR 116 ml/min/1.73sqm Normal Counts Include [facility] ([place]) Comment on above: Result Comment: GFR Population mean for , Non- Americans Ages 20-29 = 116 mL/min/1.73 sq.m. Ages 30-39 = 107 mL/min/1.73 sq.m. Ages 40-49 = 99 mL/min/1.73 sq.m. Ages 50-59 = 93 mL/min/1.73 sq.m. Ages 60-69 = 85 mL/min/1.73 sq.m. Ages 70+ = 75 mL/min/1.73 sq.m. Chronic Kidney Disease: Less than 60 mL/min/1.73 square meters End Stage Renal Disease: Less than 15 mL/min/1.73 square meters Performed By: #### T SH, GFR, ADIFF, PBNP, ANEU, CBC, CMP #### [address] [address] GFR Non- 95 ml/min/1.73sqm Normal Counts Include [facility] ([place]) Comment on above: Result Comment: GFR Population mean for , Non- Americans Ages 20-29 = 116 mL/min/1.73 sq.m. Ages 30-39 = 107 mL/min/1.73 sq.m. Ages 40-49 = 99 mL/min/1.73 sq.m. Ages 50-59 = 93 mL/min/1.73 sq.m. Ages 60-69 = 85 mL/min/1.73 sq.m. Ages 70+ = 75 mL/min/1.73 sq.m. Chronic Kidney Disease: Less than 60 mL/min/1.73 square meters End Stage Renal Disease: Less than 15 mL/min/1.73 square meters Performed By: #### T SH, GFR, ADIFF, PBNP, ANEU, CBC, CMP #### [place] [id number] .NEUABSon 01-27-2024 Neutrophil, Absolute 4.4 10 3/mcL Normal 2.9-6.2 [facility] ([place]) Comment on above: Performed By: #### T SH, GFR, ADIFF, PBNP, ANEU, CBC, CMP #### [place] [address] CBCon 01-27-2024 Erythrocyte distribution width (RBC) [Ratio] 13.7 % Normal 11.5-14.5 Counts Include [facility] ([place]) Comment on above: Performed By: #### T SH, GFR, ADIFF, PBNP, ANEU, CBC, CMP #### [place] [address] Hematocrit (Bld) [Volume fraction] 47.1 % Normal 42.0-52.0 Counts Include [facility] ([place]) Comment on above: Performed By: #### T SH, GFR, ADIFF, PBNP, ANEU, CBC, CMP #### [place] [address] Hgb 15.7 G/dL Normal 14.0-18.0 Counts Include [address] [facility] ([place]) Comment on above: Performed By: #### T SH, GFR, ADIFF, PBNP, ANEU, CBC, CMP #### [place] [address] MCH (RBC) [Entitic mass] 31.8 pg High 27.0-31.2 Counts Include [address] [facility] ([place]) Comment on above: Performed By: #### T SH, GFR, ADIFF, PBNP, ANEU, CBC, CMP #### [place] [address] MCHC 33.4 G/dL Normal 31.8-35.4 Counts Include [address] [facility] ([place]) Comment on above: Performed By: #### T SH, GFR, ADIFF, PBNP, ANEU, CBC, CMP #### [address] [address] MCV (RBC) [Entitic vol] 95.2 fL High 80.0-94.0 Counts Include [address] [facility] ([place]) Comment on above: Performed By: #### T SH, GFR, ADIFF, PBNP, ANEU, CBC, CMP #### [address] [address] Platelet 152 10 3/mcL Normal 130-400 Counts Include [facility] ([place]) Comment on above: Performed By: #### T SH, GFR, ADIFF, PBNP, ANEU, CBC, CMP #### [address] [address] Platelet mean volume (Bld) [Entitic vol] 10.7 fL High 7.4-10.4 Counts Include [address] [facility] ([place]) Comment on above: Performed By: #### T SH, GFR, ADIFF, PBNP, ANEU, CBC, CMP #### [address] [address] RBC 4.95 10 6/mcL Normal 4.04-6.13 Counts Include [address] [facility] ([place]) Comment on above: Performed By: #### T SH, GFR, ADIFF, PBNP, ANEU, CBC, CMP #### [address] [address] WBC 7.3 10 3/mcL Normal 4.6-10.8 Counts Include [facility] ([place]) Comment on above: Performed By: #### T SH, GFR, ADIFF, PBNP, ANEU, CBC, CMP #### [address] [address] CMPon 01-27-2024 Albumin Level 4.0 G/dL Normal 3.4-4.8 Counts Include [address] [facility] ([place] Comment on above: Performed By: #### T SH, GFR, ADIFF, PBNP, ANEU, CBC, CMP #### [address] [address] Albumin/Globulin [Mass ratio] 1.2 {ratio} Normal 1.1-2.5 Counts Include [address] [facility] ([place] Comment on above: Performed By: #### T SH, GFR, ADIFF, PBNP, ANEU, CBC, CMP #### [address] [address] ALP [Catalytic activity/Vol] 69 U/L Normal 40-135 Counts Include [facility] ([place]) Comment on above: Performed By: #### T SH, GFR, ADIFF, PBNP, ANEU, CBC, CMP #### [address] [address] ALT [Catalytic activity/Vol] 24 U/L Normal 16-63 Counts Include [facility] ([place]) Comment on above: Performed By: #### T SH, GFR, ADIFF, PBNP, ANEU, CBC, CMP #### [address] [address] AST [Catalytic activity/Vol] 13 U/L Normal 10-40 Counts Include [facility] ([place]) Comment on above: Performed By: #### T SH, GFR, ADIFF, PBNP, ANEU, CBC, CMP #### [address] [address] Bili Total 0.3 mg/dL Normal 0.2-1.0 Counts Include [address] [facility] ([place]) Comment on above: Result Comment: Use of this assay is not recommended for patients undergoing treatment with eltrombopag due to the potential for falsely elevated results. Performed By: #### T SH, GFR, ADIFF, PBNP, ANEU, CBC, CMP #### [address] [address] BUN/Creatinine Ratio 9 ratio Normal 7-27 [facility] ([place]) Comment on above: Performed By: #### T SH, GFR, ADIFF, PBNP, ANEU, CBC, CMP #### [address] [address] Calcium [Mass/Vol] 8.4 mg/dL Normal 8.4-10.2 Replaced by [facility] ([place]) Comment on above: Performed By: #### T SH, GFR, ADIFF, PBNP, ANEU, CBC, CMP #### [address] [address] Chloride [Moles/Vol] 103 mmol/L Normal 98-107 [facility] ([place]) Comment on above: Performed By: #### T SH, GFR, ADIFF, PBNP, ANEU, CBC, CMP #### [address] [address] CO2 [Moles/Vol] 30 mmol/L Normal 23-31 Counts Include [facility] ([place]) Comment on above: Performed By: #### T SH, GFR, ADIFF, PBNP, ANEU, CBC, CMP #### [address] [address] Creatinine [Mass/Vol] 0.79 mg/dL Normal 0.70-1.30 [facility] ([place]) Comment on above: Performed By: #### T SH, GFR, ADIFF, PBNP, ANEU, CBC, CMP #### [address] [address] Electrolyte Balance 8.0 mEq/L Normal 4.0-15.0 [facility] ([place] Comment on above: Performed By: #### T SH, GFR, ADIFF, PBNP, ANEU, CBC, CMP #### [address] [address] Globulin 3.4 G/dL Normal Counts Include [address] [facility] ([place]) Comment on above: Performed By: #### T SH, GFR, ADIFF, PBNP, ANEU, CBC, CMP #### [address] [address] Glucose [Mass/Vol] 83 mg/dL Normal 83-110 Replaced by [facility] ([place]) Comment on above: Performed By: #### T SH, GFR, ADIFF, PBNP, ANEU, CBC, CMP #### [address] [address] Potassium [Moles/Vol] 4.2 mmol/L Normal 3.5-5.1 [facility] ([place]) Comment on above: Performed By: #### T SH, GFR, ADIFF, PBNP, ANEU, CBC, CMP #### [address] [address] Sodium [Moles/Vol] 141 mmol/L Normal 136-145 Replaced by [facility] ([place]) Comment on above: Performed By: #### T SH, GFR, ADIFF, PBNP, ANEU, CBC, CMP #### [address] [address] Total Protein 7.4 G/dL Normal 6.4-8.2 Counts Include [address] [facility] ([place]) Comment on above: Performed By: #### T SH, GFR, ADIFF, PBNP, ANEU, CBC, CMP #### [place] [id number] [place], [place] [address] Urea nitrogen [Mass/Vol] 7 mg/dL Normal 7-18 [facility]) Comment on above: Performed By: #### T SH, GFR, ADIFF, PBNP, ANEU, CBC, CMP #### [address] [address] LABORATORYOrdered By: SYSTEM SYSTEM on 01-27-2024 Albumin BCP dye [Mass/Vol] 4.0 G/dL Normal 3.4 - 4.8 G/dL AO ADM SS Albumin/Globulin [Mass ratio] 1.2 {ratio} Normal 1.1 - 2.5 ratio AO ADM SS ALP [Catalytic activity/Vol] 69 U/L Normal 40 - 135 U/L AO ADM SS ALT With P-5'-P [Catalytic activity/Vol] 24 U/L Normal 16 - 63 U/L AO ADM SS AST With P-5'-P [Catalytic activity/Vol] 13 U/L Normal 10 - 40 U/L AO ADM SS Basophil, Absolute 0.0 103/mcL Normal 0.0 - 0.2 10^3/mcL AO Workflow SS Basophils/100 WBC (Bld) 0.6 % Normal 0.0 - 2.5 % AO Workflow SS Bilirubin [Mass/Vol] 0.3 mg/dL Normal 0.2 - 1 .0 mg/dL AO ADM SS Comment on above: Interpretive Data: U se of this assay is not recommended for patients undergoing treatment with eltrombopag due to the potential for falsely elevated results. Calcium [Mass/Vol] 8.4 mg/dL Normal 8.4 - 10. 2 mg/dL AO ADM SS Chloride [Moles/Vol] 103 mmol/L Normal 98 - 10 7 mmol/L AO ADM SS CO2 [Moles/Vol] 30 mmol/L Normal 23 - 31 mmol/L AO ADM SS Creatinine [Mass/Vol] 0.79 mg/dL Normal 0.70 - 1.30 mg/dL AO ADM SS Electrolyte Balance 8.0 mEq/L Normal 4.0 - 15 .0 mEq/L AO ADM SS Eosinophil, Absolute 0.0 103/mcL Normal 0.0 - 0 .4 10^3/mcL AO Workflow SS Eosinophils/100 WBC (Bld) 0.5 % Normal 0.0 - 7.0 % AO Workflow SS Erythrocyte distribution width (RBC) [Ratio] 13.7 % Normal 11.5 - 14.5 % AO Workflow SS GFR/1.73 sq M.predicted among blacks MDRD (S/P/Bld) [Vol rate/Area] 116 ml/min/1.73sqm Invalid Interpretation Code AO Chemistry S Comment on above: Interpretive Data: GFR Population mean for , Non- Americans Ages 20-29 = 116 mL/min/1.73 sq.m. Ages 30-39 = 107 mL/min/1.73 sq.m. Ages 40-49 = 99 mL/min/1.73 sq.m. Ages 50-59 = 93 mL/min/1.73 sq.m. Ages 60-69 = 85 mL/min/1.73 sq.m. Ages 70+ = 75 mL/min/1.73 sq.m. Chronic Kidney Disease: Less than 60 mL/min/1.73 square meters End Stage Renal Disease: Less than 15 mL/min/1.73 square meters GFR/1.73 sq M.predicted among non-blacks MDRD (S/P/Bld) [Vol rate/Area] 95 ml/min/1.73sqm Invalid Interpretation Code AO Chemistry S Comment on above: Interpretive Data: GFR Population mean for , Non- Americans Ages 20-29 = 116 mL/min/1.73 sq.m. Ages 30-39 = 107 mL/min/1.73 sq.m. Ages 40-49 = 99 mL/min/1.73 sq.m. Ages 50-59 = 93 mL/min/1.73 sq.m. Ages 60-69 = 85 mL/min/1.73 sq.m. Ages 70+ = 75 mL/min/1.73 sq.m. Chronic Kidney Disease: Less than 60 mL/min/1.73 square meters End Stage Renal Disease: Less than 15 mL/min/1.73 square meters Globulin 3.4 G/dL Invalid Interpretation Code AO ADM SS Glucose [Mass/Vol] 83 mg/dL Normal 83 - 110 mg/dL AO ADM SS Hematocrit (Bld) [Volume fraction] 47.1 % Normal 42.0 - 52.0 % AO Workflow SS Hemoglobin (Bld) [Mass/Vol] 15.7 G/dL Normal 14.0 - 18.0 G/dL AO Workflow SS Lymphocyte, Absolute 2.3 103/mcL Normal 0.8 - 3 .9 10^3/mcL AO Workflow SS Lymphocytes/100 WBC (Bld) 31.2 % Normal 10.0 - 50.0 % AO Workflow SS MCH (RBC) [Entitic mass] 31.8 pg High 27.0 - 31.2 pg AO Workflow SS MCHC 33.4 G/dL Normal 31.8 - 35.4 G/dL AO Workflow SS MCV (RBC) [Entitic vol] 95.2 fL High 80.0 - 94.0 fL AO Workflow SS Monocyte, Absolute 0.5 103/mcL Normal 0.2 - 1.0 10^3/mcL AO Workflow SS Monocytes/100 WBC (Bld) 6.8 % Normal 1.7 - 13.0 % AO Workflow SS Natriuretic peptide.B prohormone N-Terminal [Mass/Vol] 135 pg/mL Normal 0 - 450 pg/mL AO ADM SS Comment on above: Interpretive Data: N T-proBNP results of less than 300 pg/mL effectively rules out acute congestive heart failure with 99% negative predictive value. Neutrophil, Absolute 4.4 103/mcL Normal 2.9 - 6 .2 10^3/mcL AO Workflow SS Neutrophils/100 WBC (Bld) 60.9 % Normal 37.0 - 80.0 % AO Workflow SS Platelet mean volume (Bld) [Entitic vol] 10.7 fL High 7.4 - 10.4 fL AO Workflow SS Platelets (Bld) [#/Vol] 152 103/mcL Normal 130 - 400 10^3/mcL AO Workflow SS Potassium [Moles/Vol] 4.2 mmol/L Normal 3.5 - 5.1 mmol/L AO ADM SS Protein [Mass/Vol] 7.4 G/dL Normal 6.4 - 8.2 G/dL AO ADM SS RBC (Bld) [#/Vol] 4.95 106/mcL Normal 4.04 - 6.1 3 10^6/mcL AO Workflow SS Sodium [Moles/Vol] 141 mmol/L Normal 136 - 145 mmol/L AO ADM SS TSH Qn 2.47 m[IU]/L Normal 0.36 - 3.74 mcIU/mL AO ADM SS Urea nitrogen [Mass/Vol] 7 mg/dL Normal 7 - 18 mg/dL AO ADM SS Urea nitrogen/Creatinine [Mass ratio] 9 ratio Normal 7 - 27 ratio AO ADM SS WBC (Bld) [#/Vol] 7.3 103/mcL Normal 4.6 - 10.8 10^3/mcL AO Workflow SS PBNPon 01-27-2024 Natriuretic peptide B (Bld) [Mass/Vol] 135 pg/mL Normal 0-450 Counts Include [facility] At [facility] ([place]) Comment on above: Result Comment: NT-p roBNP results of less than 300 pg/mL effectively rules out acute congestive heart failure with 99% negative predictive value. Performed By: #### T SH, GFR, ADIFF, PBNP, ANEU, CBC, CMP #### [address] [address] TSHon 01-27-2024 TSH Qn 2.47 m[IU]/L Normal 0.36-3.74 Counts Include [facility] ([place]) Comment on above: Performed By: #### T SH, GFR, ADIFF, PBNP, ANEU, CBC, CMP #### [address] [address] XR CHEST 2 VIEWSon 4 XR CHEST 2 VIEWS ORIGINAL EXAMINATION: TWO XRAY VIEWS OF THE CHEST09/08/2023 10:35 am COMPARISON: 09/11/2022 HISTORY: ORDERING SYSTEM PROVIDED HISTORY: Reason for Exam: sob FINDINGS: The heart size is normal. There is no pulmonary consolidation. The lungs are hyperinflated. No pneumothorax or pleural effusion. No aggressive osseous lesions identified.Sternotomy wires noted. Degenerative changes seen of the spine. IMPRESSION: Hyperinflation could relate to COPD/emphysema. There is no consolidation. Interpreted by: Dago Lan MD Preliminary Report By: Dago Lan MD Electronically signed By Dago Lan MD Dictated Date: 09/10/2023 2:28:50 PM Prelim Date: 09/10/2023 2:32:25 PM Sign Date: 09/10/2023 2:32:25 PM Ordering Provider: REILLY CHILDS [facility] ([place]) LABORATORYOrdered By: SYSTEM SYSTEM on 08-14-2022 Albumin BCP dye [Mass/Vol] 3.9 G/dL Invalid Interpretation Code 3.4 - 4.8 G/dL AO ADM SS Albumin/Globulin [Mass ratio] 1.1 {ratio} Invalid Interpretation Code 1.1 - 2.5 ratio AO ADM SS ALP [Catalytic activity/Vol] 63 U/L Invalid Interpretation Code 40 - 135 U/L AO ADM SS ALT With P-5'-P [Catalytic activity/Vol] 16 U/L Invalid Interpretation Code 16 - 63 U/L AO ADM SS AST With P-5'-P [Catalytic activity/Vol] 14 U/L Invalid Interpretation Code 10 - 40 U/L AO ADM SS Bilirubin [Mass/Vol] 0.6 mg/dL Invalid Interpretation Code 0.2 - 1.0 mg/dL AO ADM SS Calcium [Mass/Vol] 9.1 mg/dL Invalid Interpretation Code 8.4 - 10.2 mg/dL AO ADM SS Chloride [Moles/Vol] 103 mmol/L Invalid Interpretation Code 98 - 107 mmol/L AO ADM SS CO2 [Moles/Vol] 30 mmol/L Invalid Interpretation Code 23 - 31 mmol/L AO ADM SS Creatinine [Mass/Vol] 0.69 mg/dL Invalid Interpretation Code 0.70 - 1.30 mg/dL AO ADM SS Electrolyte Balance 7.0 mEq/L Invalid Interpretation Code 4.0 - 15.0 mEq/L AO ADM SS Free T3 [Mass/Vol] 2.98 pg/mL Invalid Interpretation Code 2.30 - 4.00 pg/mL AO ADM SS Free T4 [Mass/Vol] 0.92 ng/dL Invalid Interpretation Code 0.76 - 1.46 ng/dL AO ADM SS GFR 135 ml/min/1.73sqm Invalid Interpretation Code AO Chemistry S GFR Non- 112 ml/min/1.73sqm Invalid Interpretation Code AO Chemistry S Globulin 3.5 G/dL Invalid Interpretation Code AO ADM SS Glucose [Mass/Vol] 120 mg/dL Invalid Interpretation Code 83 - 110 mg/dL AO ADM SS Potassium [Moles/Vol] 4.2 mmol/L Invalid Interpretation Code 3.5 - 5.1 mmol/L AO ADM SS Protein [Mass/Vol] 7.4 G/dL Invalid Interpretation Code 6.4 - 8.2 G/dL AO ADM SS Sodium [Moles/Vol] 140 mmol/L Invalid Interpretation Code 136 - 145 mmol/L AO ADM SS TSH Qn 2.30 m[IU]/L Invalid Interpretation Code 0.36 - 3.74 mcIU/mL AO ADM SS Urea nitrogen [Mass/Vol] 13 mg/dL Invalid Interpretation Code 7 - 18 mg/dL AO ADM SS Urea nitrogen/Creatinine [Mass ratio] 19 ratio Invalid Interpretation Code 7 - 27 ratio AO ADM SS LABORATORYOrdered By: Jewell Petersen on 05-05-2022 Albumin BCP dye [Mass/Vol] 3.8 G/dL Invalid Interpretation Code 3.4 - 4.8 G/dL AO ADM SS Albumin/Globulin [Mass ratio] 1.2 {ratio} Invalid Interpretation Code 1.1 - 2.5 ratio AO ADM SS ALP [Catalytic activity/Vol] 59 U/L Invalid Interpretation Code 40 - 135 U/L AO ADM SS ALT With P-5'-P [Catalytic activity/Vol] 17 U/L Invalid Interpretation Code 16 - 63 U/L AO ADM SS AST With P-5'-P [Catalytic activity/Vol] 12 U/L Invalid Interpretation Code 10 - 40 U/L AO ADM SS Basophil, Absolute 0.1 103/mcL Invalid Interpretation Code 0.0 - 0.2 10^3/mcL AO Workflow SS Basophils/100 WBC (Bld) 0.9 % Invalid Interpretation Code 0.0 - 2.5 % AO Workflow SS Bilirubin [Mass/Vol] 0.7 mg/dL Invalid Interpretation Code 0.2 - 1.0 mg/dL AO ADM SS Calcium [Mass/Vol] 8.5 mg/dL Invalid Interpretation Code 8.4 - 10.2 mg/dL AO ADM SS Chloride [Moles/Vol] 103 mmol/L Invalid Interpretation Code 98 - 107 mmol/L AO ADM SS CO2 [Moles/Vol] 32 mmol/L Invalid Interpretation Code 23 - 31 mmol/L AO ADM SS Creatinine [Mass/Vol] 0.76 mg/dL Invalid Interpretation Code 0.70 - 1.30 mg/dL AO ADM SS Electrolyte Balance 6.0 mEq/L Invalid Interpretation Code 4.0 - 15.0 mEq/L AO ADM SS Eosinophil, Absolute 0.1 103/mcL Invalid Interpretation Code 0.0 - 0.4 10^3/mcL AO Workflow SS Eosinophils/100 WBC (Bld) 1.0 % Invalid Interpretation Code 0.0 - 7.0 % AO Workflow SS Erythrocyte distribution width (RBC) [Ratio] 13.8 % Invalid Interpretation Code 11.5 - 14.5 % AO Workflow SS Globulin 3.3 G/dL Invalid Interpretation Code AO ADM SS Glucose [Mass/Vol] 91 mg/dL Invalid Interpretation Code 83 - 110 mg/dL AO ADM SS Hematocrit (Bld) [Volume fraction] 45.2 % Invalid Interpretation Code 42.0 - 52.0 % AO Workflow SS Hemoglobin (Bld) [Mass/Vol] 15.5 G/dL Invalid Interpretation Code 14.0 - 18.0 G/dL AO Workflow SS Lymphocyte, Absolute 1.9 103/mcL Invalid Interpretation Code 0.8 - 3.9 10^3/mcL AO Workflow SS Lymphocytes/100 WBC (Bld) 31.8 % Invalid Interpretation Code 10.0 - 50.0 % AO Workflow SS Magnesium [Mass/Vol] 2.1 mg/dL Invalid Interpretation Code 1.8 - 2.4 mg/dL AO ADM SS MCH (RBC) [Entitic mass] 31.7 pg Invalid Interpretation Code 27.0 - 31.2 pg AO Workflow SS MCHC 34.4 G/dL Invalid Interpretation Code 31.8 - 35.4 G/dL AO Workflow SS MCV (RBC) [Entitic vol] 92.2 fL Invalid Interpretation Code 80.0 - 94.0 fL AO Workflow SS Monocyte, Absolute 0.5 103/mcL Invalid Interpretation Code 0.2 - 1.0 10^3/mcL AO Workflow SS Monocytes/100 WBC (Bld) 8.5 % Invalid Interpretation Code 1.7 - 13.0 % AO Workflow SS Natriuretic peptide.B prohormone N-Terminal [Mass/Vol] 159 pg/mL Invalid Interpretation Code 0 - 125 pg/mL AO ADM SS Neutrophil, Absolute 3.4 103/mcL Invalid Interpretation Code 2.9 - 6.2 10^3/mcL AO Workflow SS Neutrophils/100 WBC (Bld) 57.8 % Invalid Interpretation Code 37.0 - 80.0 % AO Workflow SS Platelet mean volume (Bld) [Entitic vol] 10.2 fL Invalid Interpretation Code 7.4 - 10.4 fL AO Workflow SS Platelets (Bld) [#/Vol] 136 103/mcL Invalid Interpretation Code 130 - 400 10^3/mcL AO Workflow SS Potassium [Moles/Vol] 4.4 mmol/L Invalid Interpretation Code 3.5 - 5.1 mmol/L AO ADM SS Protein [Mass/Vol] 7.1 G/dL Invalid Interpretation Code 6.4 - 8.2 G/dL AO ADM SS RBC (Bld) [#/Vol] 4.91 106/mcL Invalid Interpretation Code 4.04 - 6.13 10^6/mcL AO Workflow SS Sodium [Moles/Vol] 141 mmol/L Invalid Interpretation Code 136 - 145 mmol/L AO ADM SS TSH Qn 4.10 m[IU]/L Invalid Interpretation Code 0.36 - 3.74 mcIU/mL AO ADM SS Urea nitrogen [Mass/Vol] 9 mg/dL Invalid Interpretation Code 7 - 18 mg/dL AO ADM SS Urea nitrogen/Creatinine [Mass ratio] 12 ratio Invalid Interpretation Code 7 - 27 ratio AO ADM SS WBC (Bld) [#/Vol] 5.9 103/mcL Invalid Interpretation Code 4.6 - 10.8 10^3/mcL AO Workflow SS LABORATORYOrdered By: SYSTEM SYSTEM on 05-05-2022 GFR 122 ml/min/1.73sqm Invalid Interpretation Code AO Chemistry S GFR Non- 100 ml/min/1.73sqm Invalid Interpretation Code AO Chemistry S LABORATORYOrdered By: Caleb Nevarez on 01-12-2022 Albumin BCP dye [Mass/Vol] 4.0 G/dL Invalid Interpretation Code 3.4 - 4.8 G/dL AO ADM SS Albumin/Globulin [Mass ratio] 1.1 {ratio} Invalid Interpretation Code 1.1 - 2.5 ratio AO ADM SS ALP [Catalytic activity/Vol] 58 U/L Invalid Interpretation Code 40 - 135 U/L AO ADM SS ALT With P-5'-P [Catalytic activity/Vol] 18 U/L Invalid Interpretation Code 16 - 63 U/L AO ADM SS AST With P-5'-P [Catalytic activity/Vol] 12 U/L Invalid Interpretation Code 10 - 40 U/L AO ADM SS Bilirubin [Mass/Vol] 0.7 mg/dL Invalid Interpretation Code 0.2 - 1.0 mg/dL AO ADM SS Calcium [Mass/Vol] 9.1 mg/dL Invalid Interpretation Code 8.4 - 10.2 mg/dL AO ADM SS Chloride [Moles/Vol] 102 mmol/L Invalid Interpretation Code 98 - 107 mmol/L AO ADM SS Cholesterol [Mass/Vol] 132 mg/dL Invalid Interpretation Code 0 - 200 mg/dL AO ADM SS Cholesterol in HDL [Mass/Vol] 45 mg/dL Invalid Interpretation Code 40 - 60 mg/dL AO ADM SS Cholesterol in LDL [Mass/Vol] 71 mg/dL Invalid Interpretation Code 0 - 130 mg/dL AO ADM SS CO2 [Moles/Vol] 27 mmol/L Invalid Interpretation Code 23 - 31 mmol/L AO ADM SS Creatinine [Mass/Vol] 0.74 mg/dL Invalid Interpretation Code 0.70 - 1.30 mg/dL AO ADM SS Electrolyte Balance 12.0 mEq/L Invalid Interpretation Code 4.0 - 15.0 mEq/L AO ADM SS Globulin 3.6 G/dL Invalid Interpretation Code AO ADM SS Glucose [Mass/Vol] 90 mg/dL Invalid Interpretation Code 83 - 110 mg/dL AO ADM SS Potassium [Moles/Vol] 4.6 mmol/L Invalid Interpretation Code 3.5 - 5.1 mmol/L AO ADM SS Prostate specific Ag [Mass/Vol] 1.36 ng/mL Invalid Interpretation Code 0.00 - 4.00 ng/mL AO ADM SS Protein [Mass/Vol] 7.6 G/dL Invalid Interpretation Code 6.4 - 8.2 G/dL AO ADM SS Sodium [Moles/Vol] 141 mmol/L Invalid Interpretation Code 136 - 145 mmol/L AO ADM SS Triglyceride [Mass/Vol] 78 mg/dL Invalid Interpretation Code 0 - 150 mg/dL AO ADM SS Urea nitrogen [Mass/Vol] 11 mg/dL Invalid Interpretation Code 7 - 18 mg/dL AO ADM SS Urea nitrogen/Creatinine [Mass ratio] 15 ratio Invalid Interpretation Code 7 - 27 ratio AO ADM SS LABORATORYOrdered By: Laurie Shannon on 01-12-2022 Basophil, Absolute 0.10 103/mcL Invalid Interpretation Code 0.00 - 0.19 10^3/mcL AO Auto Heme SS Basophils/100 WBC (Bld) 0.9 % Invalid Interpretation Code 0.0 - 2.5 % AO Auto Heme SS Eosinophil, Absolute 0.00 103/mcL Invalid Interpretation Code 0.00 - 0.40 10^3/mcL AO Auto Heme SS Eosinophils/100 WBC (Bld) 0.7 % Invalid Interpretation Code 0.0 - 7.0 % AO Auto Heme SS Erythrocyte distribution width (RBC) [Ratio] 13.6 % Invalid Interpretation Code 11.5 - 14.5 % AO Auto Heme SS Hematocrit (Bld) [Volume fraction] 45.8 % Invalid Interpretation Code 42.0 - 52.0 % AO Auto Heme SS Hemoglobin (Bld) [Mass/Vol] 15.7 G/dL Invalid Interpretation Code 14.0 - 18.0 G/dL AO Auto Heme SS Lymphocyte, Absolute 2.20 103/mcL Invalid Interpretation Code 0.77 - 3.85 10^3/mcL AO Auto Heme SS Lymphocytes/100 WBC (Bld) 33.6 % Invalid Interpretation Code 10.0 - 50.0 % AO Auto Heme SS MCH (RBC) [Entitic mass] 31.5 pg Invalid Interpretation Code 27.0 - 31.2 pg AO Auto Heme SS MCHC (RBC) [Mass/Vol] 34.2 G/dL Invalid Interpretation Code 31.8 - 35.4 G/dL AO Auto Heme SS MCV (RBC) [Entitic vol] 92.2 fL Invalid Interpretation Code 80.0 - 94.0 fL AO Auto Heme SS Monocyte, Absolute 0.60 103/mcL Invalid Interpretation Code 0.15 - 1.00 10^3/mcL AO Auto Heme SS Monocytes/100 WBC (Bld) 8.9 % Invalid Interpretation Code 1.7 - 13.0 % AO Auto Heme SS Neutrophil, Absolute 3.70 103/mcL Invalid Interpretation Code 2.85 - 6.16 10^3/mcL AO Auto Heme SS Neutrophils/100 WBC (Bld) 55.9 % Invalid Interpretation Code 37.0 - 80.0 % AO Auto Heme SS Platelet mean volume (Bld) [Entitic vol] 10.6 fL Invalid Interpretation Code 7.4 - 10.4 fL AO Auto Heme SS Platelets (Bld) [#/Vol] 176 103/mcL Invalid Interpretation Code 130 - 400 10^3/mcL AO Auto Heme SS RBC (Bld) [#/Vol] 4.97 106/mcL Invalid Interpretation Code 4.04 - 6.13 10^6/mcL AO Auto Heme SS WBC (Bld) [#/Vol] 6.60 103/mcL Invalid Interpretation Code 4.60 - 10.80 10^3/mcL AO Auto Heme SS LABORATORYOrdered By: SYSTEM SYSTEM on 01-12-2022 GFR 125 ml/min/1.73sqm Invalid Interpretation Code AO Chemistry S GFR Non- 103 ml/min/1.73sqm Invalid Interpretation Code AO Chemistry S LABORATORYOrdered By: Jones Izquierdo on 01-12-2022 Hep C Ab Non-Reactive (01/12/22 9:00 AM) Invalid Interpretation Code Non-Reactive AH ADM SS Hep C Ab Int Nonreactive: Samples with a value < 0.80 are considered nonreactive (negative) for antibodies to HCV.A negative test result does not exclude the possibility of exposure to or infection with HCV. HCV antibodies may be undetectable in some stages of the infection and in some clinical conditions. Invalid Interpretation Code AH Chemistry S Vital Signs Date Time Vital Sign Value Performing Clinician Facility 02-12-2025 10:40-0400 Body height 167.[address] Marlin Lancaster DO Work Phone: [facility] 02-12-2025 10:40-0400 Body mass index (BMI) [Ratio] 27.7 kg/m2 Dr. Marlin Lancaster DO Work Phone: [facility] 02-12-2025 10:40-0400 Body temperature 97.3 [degF] Dr. Marlin Lancaster DO Work Phone: [facility] 02-12-2025 10:40-0400 Body weight 78.[address] Marlin Lancaster DO Work Phone: [facility] 02-12-2025 10:40-0400 Diastolic blood pressure 64 mm[Hg] Dr. Marlin Lancaster DO Work Phone: [facility] 02-12-2025 10:40-0400 Heart rate 54 /min Dr. Marlin Lancaster DO Work Phone: [facility] 02-12-2025 10:40-0400 Respiratory rate 16 /min Dr. Marlin Lancaster DO Work Phone: [facility] 02-12-2025 10:40-0400 SaO2% (BldA) [Mass fraction] 94 % Dr. Marlin Lancaster DO Work Phone: [facility] 02-12-2025 10:40-0400 Systolic blood pressure 122 mm[Hg] Dr. Marlin Lancaster DO Work Phone: [facility] 12-19-2024 11:35-0400 Body mass index (BMI) [Ratio] 28.3 kg/m2 Dr. Marlin Lancaster DO Work Phone: [facility] 12-19-2024 11:35-0400 Body temperature 97.3 [degF] Dr. Marlin Lancaster DO Work Phone: [facility] 12-19-2024 11:35-0400 Body weight 79.[address] Marlin Lancaster DO Work Phone: [facility] 12-19-2024 11:35-0400 Diastolic blood pressure 76 mm[Hg] Dr. Marlin Lancaster DO Work Phone: [facility] 12-19-2024 11:35-0400 Heart rate 54 /min Dr. Marlin Lancaster DO Work Phone: [facility] 12-19-2024 11:35-0400 Respiratory rate 18 /min Dr. Marlin Lancaster DO Work Phone: [facility] 12-19-2024 11:35-0400 SaO2% (BldA) [Mass fraction] 96 % Dr. Marlin Lancaster DO Work Phone: [facility] 12-19-2024 11:35-0400 Systolic blood pressure 147 mm[Hg] Dr. Marlin Lancaster DO Work Phone: [facility] 11-09-2024 08:50-0400 Body mass index (BMI) [Ratio] 26.92 kg/m2 Yordy Hani DO Work Phone: [facility] 11-09-2024 08:50-0400 Body temperature 97.9 [degF] Yordy Hani DO Work Phone: [facility] 11-09-2024 08:50-0400 Body weight 77.34 kg Yordy Hani DO Work Phone: [facility] 11-09-2024 08:50-0400 Diastolic blood pressure 89 mm[Hg] Yordy Hani DO Work Phone: [facility] 11-09-2024 08:50-0400 Heart rate 61 /min Yordy Emelyi DO Work Phone: [facility] 11-09-2024 08:50-0400 SaO2% (BldA) [Mass fraction] 99 % Yordy Hani DO Work Phone: [facility] 11-09-2024 08:50-0400 Systolic blood pressure 142 mm[Hg] Yordy Emelyi DO Work Phone: [facility] 11-08-2024 12:28-0400 Body mass index (BMI) [Ratio] 27.4 kg/m2 Dr. Marlin Lancaster DO Work Phone: [facility] 11-08-2024 12:28-0400 Body temperature 97.7 [degF] Dr. Marlin Lancaster DO Work Phone: [facility] 11-08-2024 12:28-0400 Body weight 77.[address] Marlin Lancaster DO Work Phone: [facility] 11-08-2024 12:28-0400 Diastolic blood pressure 73 mm[Hg] Dr. Marlin Lancaster DO Work Phone: [facility] 11-08-2024 12:28-0400 Heart rate 59 /min Dr. Marlin Lancaster DO Work Phone: [facility] 11-08-2024 12:28-0400 Respiratory rate 18 /min Dr. Marlin Lancaster DO Work Phone: [facility] 11-08-2024 12:28-0400 SaO2% (BldA) [Mass fraction] 95 % Dr. Marlin Lancaster DO Work Phone: [facility] 11-08-2024 12:28-0400 Systolic blood pressure 158 mm[Hg] Dr. Marlin Lancaster DO Work Phone: [facility] 10-06-2024 13:40-0500 Body height 169.5 cm Yordy Hani DO Work Phone: [facility] 10-06-2024 13:40-0500 Body mass index (BMI) [Ratio] 27.08 kg/m2 Yordy Masci DO Work Phone: [facility] 10-06-2024 13:40-0500 Body temperature 98.01 [degF] Yordy Masci DO Work Phone: [facility] 10-06-2024 13:40-0500 Body weight 77.79 kg Yordy Masci DO Work Phone: [facility] 10-06-2024 13:40-0500 Diastolic blood pressure 70 mm[Hg] Yordy Masci DO Work Phone: [facility] 10-06-2024 13:40-0500 Heart rate 60 /min Yordy Masci DO Work Phone: [facility] 10-06-2024 13:40-0500 SaO2% (BldA) [Mass fraction] 96 % Yordy Masci DO Work Phone: [facility] 10-06-2024 13:40-0500 Systolic blood pressure 129 mm[Hg] Yordy Masci DO Work Phone: [facility] 09-09-2024 07:51-0500 Body temperature 97.52 [degF] QIAN FAY MD [facility] 09-09-2024 07:51-0500 Diastolic Blood Pressure Non-Invasive 66 mm[Hg] QIAN FAY MD [facility] 09-09-2024 07:51-0500 Heart rate 58 /min QIAN FAY MD [facility] 09-09-2024 07:51-0500 Respiratory rate 16 /min QIAN FAY MD [facility] 09-09-2024 07:51-0500 Systolic Blood Pressure Non-Invasive 132 mm[Hg] QIAN FAY MD [facility] 09-09-2024 03:36-0500 Body temperature 97.88 [degF] QIAN FAY MD [facility] 09-09-2024 03:36-0500 Diastolic Blood Pressure Non-Invasive 75 mm[Hg] QIAN FAY MD [facility] 09-09-2024 03:36-0500 Heart rate 75 /min QIAN FAY MD [facility] 09-09-2024 03:36-0500 Respiratory rate 16 /min QIAN FAY MD [facility] 09-09-2024 03:36-0500 Systolic Blood Pressure Non-Invasive 137 mm[Hg] QIAN FAY MD [facility] 09-08-2024 23:37-0500 Blood Pressure Cuff Size QIAN FAY MD [facility] 09-08-2024 23:37-0500 Blood Pressure Location QIAN FAY MD [facility] 09-08-2024 23:37-0500 Blood Pressure Method QIAN FAY MD [facility] 09-08-2024 23:37-0500 Body temperature 97.88 [degF] QIAN FAY MD [facility] 09-08-2024 23:37-0500 Diastolic Blood Pressure Non-Invasive 71 mm[Hg] QIAN FAY MD [facility] 09-08-2024 23:37-0500 Heart rate 67 /min QIAN FAY MD [facility] 09-08-2024 23:37-0500 Respiratory rate 16 /min QIAN FAY MD [facility] 09-08-2024 23:37-0500 Systolic Blood Pressure Non-Invasive 170 mm[Hg] QIAN FAY MD [facility] 09-08-2024 12:43-0500 Heart rate 62 /min QIAN FAY MD [facility] 09-08-2024 12:31-0500 Body height 167.6 cm QIAN FAY MD [facility] 09-08-2024 12:31-0500 Body weight 75.7 kg QIAN FAY MD [facility] 09-08-2024 12:31-0500 Body weight 26.95 kg/m2 QIAN FAY MD [facility] 09-08-2024 11:49-0500 Heart rate 58 /min QIAN FAY MD [facility] 09-08-2024 11:49-0500 Body temperature 96.98 [degF] QIAN FAY MD [facility] 09-08-2024 11:48-0500 Heart rate 60 /min QIAN FAY MD [facility] 09-08-2024 11:33-0500 Mean blood pressure 99 mm[Hg] QIAN FAY MD [facility] 09-08-2024 11:33-0500 Heart rate 55 /min QIAN FAY MD [facility] 09-08-2024 11:19-0500 Mean blood pressure 115 mm[Hg] QIAN FAY MD [facility] 09-08-2024 11:19-0500 Body temperature 96.8 [degF] QIAN FAY MD [facility] 09-08-2024 11:03-0500 Mean blood pressure 154 mm[Hg] QIAN FAY MD [facility] 09-08-2024 10:20-0500 Body temperature 96.8 [degF] QIAN FAY MD [facility] 09-08-2024 10:10-0500 Respiratory Rate - Anes 4 br/min QIAN FAY MD [facility] 09-08-2024 10:05-0500 Body temperature 96.73 [degF] QIAN FAY MD [facility] 09-08-2024 10:05-0500 Respiratory Rate - Anes 9 br/min QIAN FAY MD [facility] 09-08-2024 10:00-0500 Body temperature 96.64 [degF] QIAN FAY MD [facility] 09-08-2024 10:00-0500 Respiratory Rate - Anes 8 br/min QIAN FAY MD [facility] 09-08-2024 09:55-0500 Body temperature 96.62 [degF] QIAN FAY MD [facility] 09-08-2024 07:10-0500 Body height 167.6 cm QIAN FAY MD [facility] 09-08-2024 07:10-0500 Body weight 75.7 kg QIAN FAY MD [facility] 08-25-2024 14:32-0500 Blood Pressure Cuff Size QIAN FAY MD [facility] 08-25-2024 14:32-0500 Blood Pressure Location QIAN FAY MD [facility] 08-25-2024 14:32-0500 Blood Pressure Method QIAN FAY MD [facility] 08-25-2024 14:32-0500 Diastolic Blood Pressure Non-Invasive 82 mm[Hg] QIAN FAY MD [facility] 08-25-2024 14:32-0500 Systolic Blood Pressure Non-Invasive 126 mm[Hg] QIAN FAY MD [facility] 08-25-2024 13:38-0500 Blood Pressure Cuff Size QIAN FAY MD [facility] 08-25-2024 13:38-0500 Blood Pressure Location QIAN FAY MD [facility] 08-25-2024 13:38-0500 Blood Pressure Method QIAN FAY MD [facility] 08-25-2024 13:38-0500 Body height 166.4 cm QIAN FAY MD [facility] 08-25-2024 13:38-0500 Body temperature 98.06 [degF] QIAN FAY MD [facility] 08-25-2024 13:38-0500 Body weight 76.6 kg QIAN FAY MD [facility] 08-25-2024 13:38-0500 Body weight 27.66 kg/m2 QIAN FAY MD [facility] 08-25-2024 13:38-0500 Diastolic Blood Pressure Non-Invasive 76 mm[Hg] QIAN FAY MD [facility] 08-25-2024 13:38-0500 Heart rate 57 /min QIAN FAY MD [address]27-2024 13:38-0500 Systolic Blood Pressure Non-Invasive 162 mm[Hg] QIAN FAY MD [facility] Encounters Encounter Date Encounter Type Care Provider Facility Start: 04-24-2025 ambulatory REILLY CHILDS GERIATRIC CASE MANAGER-MARBLE MACHINE OPERATOR Facility:[facility] Start: 03-20-2025 End: 03-20-2025 ambulatory MARLIN LANCASTER DO Facility:[facility] Start: 03-20-2025 End: 03-20-2025 Patient encounter procedure MARLIN LANCASTER DO [facility] Start: 02-12-2025 End: 02-12-[address] Bria Liu [facility] Work Phone: Start: 02-12-2025 End: 02-12-[address] Marlin Lancaster DO Work Phone: [facility] Work Phone: Start: 02-06-2025 ambulatory Bria Jack Facility: [facility] Start: 02-06-[address] Bria Holbrook on [facility] Start: 12-25-2024 End: 12-25-2024 Telephone encounter Nasrin Boateng RN Hematology/Oncology Comment on above: Clinical Trials Systems Administrator - O ther (Follow-up ) Start: 12-19-2024 End: 12-19-2024 ambulatory Bria L[place] Start: 12-19-2024 End: 12-19-[address] Bria Liu [facility] Work Phone: Start: 11-10-2024 Non-patient / Non-visit Dr. 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 Bria Liu DO [facility] Work Phone: Start: 11-08-2024 End: 11-08-2024 ambulatory [facility] Start: 11-06-2024 Non-patient / Non-visit Dr. Bria grajeda DO [facility] Work Phone: Start: 11-06-2024 ambulatory [facility] Facility: [facility] Start: 11-02-2024 Non-patient / Non-visit Dr. Bria grajeda DO [facility] Work Phone: Start: 11-02-2024 ambulatory [facility] Facility: [facility] Start: 10-31-2024 Non-patient / Non-visit Dr. Bria grajeda DO [facility] Work Phone: Start: 10-31-2024 ambulatory [facility] Facility: [facility] Start: 10-20-2024 ambulatory [facility] Facility: [facility] Start: 10-17-2024 ambulatory [facility] Facility: [facility] Start: 10-17-2024 Non-patient / Non-visit Dr. 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) Start: 10-06-2024 End: 10-06-2024 Patient encounter procedure Yordy Velazquez DO Work Phone: Hematology/Oncology Start: 09-29-2024 End: 09-29-2024 ambulatory Bria Liu Facility:[facility] Start: 09-28-2024 End: 09-29-2024 Telephone encounter Yordy Velazquez DO Work Phone: Hematology/Oncology Comment on above: Appointment Start: 09-25-2024 End: 09-25-2024 ambulatory MARLIN LANCASTER DO Facility[facility] Start: 09-25-2024 End: 09-25-2024 Patient encounter procedure BRIA LIU DO [facility] Start: 09-20-2024 End: 09-20-2024 ambulatory Bria Liu Facility:[facility] Start: 09-19-2024 End: 09-19-2024 ambulatory MARLIN ARGUETAKO DO Facility:[facility] Start: 09-19-2024 End: 09-19-2024 Patient encounter procedure MARLIN ARGUETAKO DO [facility] Start: 09-18-2024 ambulatory Morenita Stinson [place] :[facility] Start: 09-08-2024 End: 09-09-2024 Evaluation and management of inpatient QIAN FAY MD [facility] Start: 08-25-2024 End: 08-25-2024 Admission to establishment QIAN FAY MD [facility] Start: 08-25-2024 End: 08-25-2024 ambulatory MARLIN HALKO DO Facility:[facility] Start: 08-24-2024 End: 08-24-2024 ambulatory MARLIN HALKO DO Facility:[facility] Start: 08-24-2024 End: 08-24-2024 Patient encounter procedure LINK PERRY MD [facility] Start: 08-03-2024 End: 08-03-2024 ambulatory MARLIN ELLIEKO DO Facility:[facility] Start: 08-03-2024 End: 08-03-2024 Patient encounter procedure MARLIN ARGUETAKO DO [facility] Start: 07-25-2024 End: 07-25-2024 ambulatory MARLIN ANISHA DO Facility:[facility] Start: 07-25-2024 End: 07-25-2024 Patient encounter procedure MARLIN ARGUETAKO DO [facility] Start: 07-13-2024 ambulatory MARLIN LANCASTER DO Facili ty:[facility] Start: 07-10-2024 End: 07-10-2024 ambulatory MARLIN ELLIEKO DO Facility:[facility] Start: 07-10-2024 End: 07-10-2024 Patient encounter procedure MARLIN ARGUETAKO DO [facility] Start: 06-23-2024 End: 06-23-2024 ambulatory MARLIN LANCASTER DO Facility[facility] Start: 06-23-2024 End: 06-23-2024 Patient encounter procedure MARLIN ARGUETAKO DO [facility] Start: 03-28-2024 ambulatory REILLY CHILDS GERIATRIC CASE MANAGER-MARBLE MACHINE OPERATOR Facility:[facility] Start: 03-20-2024 End: 03-20-2024 ambulatory REILLY CHILDS GERIATRIC CASE MANAGER-MARBLE MACHINE OPERATOR Facility:[facility] Start: 03-20-2024 End: 03-20-2024 Patient encounter procedure REILLY CHILDS GERIATRIC CASE MANAGER-MARBLE MACHINE OPERATOR [facility] Start: 02-22-2024 End: 03-21-[address] DAMARIS FOSTER DO Facility:[facility] Start: 02-22-2024 End: 03-21-[address] DAMARIS FOSTER DO [facility] Start: 02-15-2024 End: 02-15-[address] DAMARIS FOSTER DO Facility:[facility] Start: 02-15-2024 End: 02-15-[address] DAMARIS FOSTER DO [facility] Start: 01-27-2024 End: 01-27-[address] DAMARIS FOSTER DO Facility:[facility] Start: 01-27-2024 End: 01-27-[address] DAMARIS FOSTER DO [facility] Start: 09-08-2023 End: 09-08-2023 ambulatory REILLY CHILDS GERIATRIC CASE MANAGER-MARBLE MACHINE OPERATOR Facility:[facility] Start: 09-08-2023 End: 09-08-2023 Patient encounter procedure REILLY CHILDS GERIATRIC CASE MANAGER-MARBLE MACHINE OPERATOR [facility] Start: 02-16-2023 End: 02-16-2023 Patient encounter procedure MARLIN LANCASTER DO [facility] Start: 08-14-2022 End: 08-14-2022 Patient encounter procedure MARLIN ANISHA DO [facility] Start: 06-30-2022 End: 06-30-2022 Patient encounter procedure MARLIN LANCASTER DO [facility] Start: 05-20-2022 End: 05-20-2022 Patient encounter procedure REILLY CHILDS GERIATRIC CASE MANAGER-MARBLE MACHINE OPERATOR [facility] Start: 05-05-2022 End: 05-05-2022 Patient encounter procedure REILLY CHILDS GERIATRIC CASE MANAGER-MARBLE MACHINE OPERATOR [facility] Start: 01-12-2022 End: 01-12-2022 Patient encounter procedure MARLIN LANCASTER DO [facility] Start: 10-20-2021 End: 10-20-2021 Patient encounter procedure MARLIN LANCASTER DO [facility] Procedures Date Procedure Procedure Detail Performing Clinician Start: 02-06-2025 PET study for localization of tumor Dr. Marlin Lancaster DO Work Phone: Start: 09-26-2024 Positron emission tomography with computed tomography Dr. Marlin Lancaster DO Work Phone: Start: 09-30-2020 Cataract (disorder) LIZET HACECI ARGUETASTACEY DO Appendectomy MARLIN Mcnulty Colonoscopy QIAN Tao Coronary artery bypa ss graft MARLIN ELLIESTACEY RIOS Comment on above: x 5 Coronary artery bypa ss graft QIAN FAY MD Comment on above: x 5 2016 Extraction of cataract QIAN FAY MD Comment on above: BILATERAL Extraction of perman ent tooth QIAN FAY MD History of coronary artery bypass grafting S/P CABG (CORONARY ARTERY BYPASS GRAFT)( Confirmed ) 3 MARLIN ARGUETASTACEY DO Comment on above: CABG in 2016 with JOSSELYN MA to the LAD and SVGs to the distal LAD, diagonal, OM, and PDA. Plan of Treatment Date Care Activity Detail Author Start: 11-09-2024 End: 11-09-2024 ambulatory 11/09/2024 9:10 AM EDT Visit (SP) Office Hematology/Oncology [address] [place] [place] [address] Yordy Velazquez DO [address] [place] [address] 1MO OV* Hematology/Oncology Comment on above: 1MO OV* Start: 10-06-2024 End: 10-06-2024 ambulatory 10/06/2024 1:30 PM EST Visit (SP) Office Hematology/Oncology [address] [place] [address] Yordy Velazquez, DO [address] [place] [address] PERFORATOR LOADER/LUNG CANCER/REF PROV DR LIU* Hematology/Oncology Comment on above: PERFORATOR LOADER/LUNG CANCER/REF P ROV DR LIU* Start: 08-30-2024 Advance Directive Discussion Advance Directive Discussion [facility] Start: 04-30-2024 Covid-19 Vaccine ( season) Covid-19 Vaccine ( season) [facility] Start: 04-30-2024 Influenza vaccination Influenza Vacc ine (#1) [facility] Start: 2022 RSV Vaccine (1 - 1-d ose 75+ series) RSV Vaccine (1 - 1-dose 75+ series) [facility] Start: 1997 Pneumococcal Vaccine : 50+ (1 of 1 - PCV) Pneumococcal Vaccine: 50+ (1 of 1 - PCV) [facility] Start: 1997 Shingrix Vaccine (1 of 2) Shingrix Vaccine (1 of 2) [facility] Start: 1992 Diabetes Screening Diabetes Screenin g [facility] Start: 1966 Pneumococcal Vaccine : 50+ (1 of 2 - PCV) Pneumococcal Vaccine: 50+ (1 of 2 - PCV) [facility] Start: 1966 Shingrix Vaccine (1 of 2) Shingrix Vaccine (1 of 2) [facility] Start: 1966 Urine microalbumin profile DTaP,Tdap,Td Vaccine (1 - Tdap) [facility] Start: 1965 Anxiety Screening Anxiety Screening [facility] Start: 1965 Depression Screening Depression Scre ening [facility] Start: 1965 Hepatitis C screening Hepatitis C Luisito gonzáles [facility] PT Unspecified body region [facility] Payers Date Payer Category Payer Medicare (Managed Care) [employer] H[employer] [id number] 2024 Self-pay 2024 Medicare [id number] 2024 Medicare [id number] 2022 Unknown [id number] 2022 Private Health Insurance [id number] 2022 Unknown [id number] 1947 Unknown [id number] .840.1.480095.3.579. 2 1947 Unknown [id number] 840.1.088986.3.579. 2 1947 Unknown [id number] .840.1.919919.3.579. 2 1947 Unknown [id number] 840.1.760970.3.579. 2. 1947 Unknown [id number] .840.1.207448.3.579. 2. 1947 Unknown [id number] .840.1.149462.3.579. 2. 1947 Unknown [id number] 2.840.1.459107.3.579. 2 1947 Unknown [id number] 2840.1.189155.3.579. 2.62 1947 Unknown [id number] 2.16.840.1.496008.3.579. 2.627 1947 Unknown [id number] 2.16.840.1.734096.3.579. 2.627 1947 Unknown [id number] 2.16.840.1.399510.3.579. 2.627 1947 Unknown [id number] 2.16.840.1.036843.3.579. 2.627 1947 Unknown [id number] 2.16.840.1.494661.3.579. 2.627 1947 Unknown [id number] 2.16.840.1.390921.3.579. 2. 1947 Unknown [id number] 2..840.1.408403.3.579. 2.7 1947 Unknown [id number] 2..840.1.608299.3.579. 2.7 1947 Unknown [id number] 2..840.1.822973.3.579. 2.627 1947 Unknown [id number] 2..840.1.319450.3.579. 2.627 Unknown [id number] 2.16.840.1.939948.3.579. 2.462 Unknown [id number] 2.16.840.1.039062.3.579. 2.462 Unknown [id number] 2.16.840.1.064593.3.579. 2.462 Unknown [id number] 2.16.840.1.589656.3.579. 2.462 Unknown [id number] 2.16.840.1.351694.3.579. 2.462 Unknown [id number] 2.16.840.1.109764.3.579. 2.462 Unknown [id number] Unknown [id number] Unknown [id number] Unknown [id number] Unknown [id number] Unknown [id number] Unknown [id number] Unknown [id number] Social History Date Type Detail Facility Start: 07-14-2019 Heavy tobacco smoker (finding) [facility] Start: 1945 Sex Assigned At Male A [facility] Tobacco Nicotine Use: 1 pack of cigarettes.. [facility] Start: 09-20-2024 End: 10-06-2024 Tobacco smoking status Smokes tobacco daily (finding) [facility] Start: 08-10-2024 End: 08-25-2024 Tobacco smoking status Light tobacco smoker (finding) [facility] Comment on above: smokes 1/2 PPD x 70 yrs Sexual Orientation [facility]saimee [facility] Start: 07-25-2019 Sex Male (finding) [facility] Start: 1945 Sex assigned at Not on file [facility] Start: 10-06-2024 End: 11-09-2024 Gender identity Not on file [facility] History of tobacco use Cigarette Smoker C [facility] Start: 10-06-2024 Tobacco use and exposure Smokeless tobacco non-user [facility] Start: 10-06-2024 End: 11-09-2024 Alcoholic beverage intake Ex-drinker (finding) [facility] Start: 10-06-2024 End: 11-09-2024 History of Social function [facility] National Score (1-100), lower number is lower risk 87 [facility] Start: 10-06-2024 Tobacco Comment Smoking - cutt ing back from 1 pack per day [facility] Functional Status Date Assessment Result Facility 09-09-2024 Functional Status Repositions self [facility] 09-09-2024 Functional Status [facility] 09-09-2024 Functional Status Refused [facility] 09-09-2024 Functional Status Room check performed [facility] 09-09-2024 Functional Status [facility] 09-08-2024 Functional Status [facility] 09-08-2024 Functional Status Dinner Percent [address] [facility] 09-08-2024 Functional Status [facility] 09-08-2024 Functional Status bilateral knee high rem rudi/off [facility] 09-08-2024 Functional Status Patient Identified Iden tification band [facility] 09-08-2024 Functional Status Maintained [facility] 08-25-2024 Functional Status Sensory Deficits None A [facility] Mental Status Date Assessment Result Facility 09-09-2024 Mental Status Orientation Oriented x 4 [facility] 09-08-2024 Mental Status [facility] 09-08-2024 Mental Status [facility] 09-08-2024 Mental Status [facility] Clinical Notes 01-27-2024 to 12-25-2024 Telephone Encounter - Nidia Blake LPN - 12/25/2024 4:00 PM EDTTelephone Encounter - Nidia Blake LPN - 12/25/2024 4:00 PM EDTTelephone Encounter - Yordy Velazquez DO - 12/25/2024 3:54 PM EDT Note Date & Type Note Facility 12-25-2024 Telephone encounter Note A copy of this note faxed to Dr. Liu. Nidia Blake LPN [facility] 12-25-2024 Miscellaneous Notes A copy of this note faxed to Dr. Liu. Nidia Blake LPN Please fax a copy of this note to Dr. Liu so that he is aware of the plan. Yordy Velazquez DO Patient called back. Patient does not want to pursue immunotherapy. Patient is scheduled for a PET scan 01/[address] Liu on 01/12. Nasrin Boateng RN Called patient to follow-up regarding his last OV and to see if he has made a decision on treatment. There was no answer, a VM was left requesting a call back. Nasrin Boateng RN documented in this encounter [facility] 12-25-2024 Telephone encounter Note Please fax a copy of this note to Dr. Liu so that he is aware of the plan. Yordy Velzaquez DO [facility] 12-25-2024 Telephone encounter Note Patient called back. Patient does not want to pursue immunotherapy. Patient is scheduled for a PET scan 01/[address] Liu on 01/12. Nasrin Boateng RN [facility] 12-25-2024 Telephone encounter Note Called patient to follow-up regarding his last OV and to see if he has made a decision on treatment. There was no answer, a VM was left requesting a call back. Nasrin Boateng RN [facility] 11-09-2024 Telephone encounter Note Met with patient and introduced myself. Patient was given a My Journey binder with chemocare information, office contact information, thermometer, and additional chemotherapy resource handouts. Patient aware this nurse will review on scheduled appointment date. Nasrin Boateng RN [facility] 11-09-2024 Miscellaneous Notes Met with patient and introduced myself. Patient was given a My Journey binder with chemocare information, office contact information, thermometer, and additional chemotherapy resource handouts. Patient aware this nurse will review on scheduled appointment date. Nasrin Boateng RN documented in this encounter [facility] 11-09-2024 Note HNO ID: [id number] Author: YORDY VELAZQUEZ DO Service: ? Author Type: Physician Type: Progress Notes Filed: 11/09/2024 09:50 Note Text: Oncologic problem(s): 1) Metastatic NSCLC. HPI: The patient is a 79-year-old male with a past medical history significant for CAD (5 vessel CABG), COPD, atrial fibrillation, aortic aneurysm, hyperlipidemia, smoking, KWABENA (won't try CPAP) and non-small cell lung cancer. He originally had a low-dose screening CT chest on 07/10/2024. He was observed to have a 9 mm spiculated lesion in the right upper lobe. PET scan 07/25/2024 done at [facility] demonstrated a right cervical chain level 4 lymph node measuring 8 mm with an SUV of 9.2. In the right upper lobe there was a 1.1 cm nodule that was hypermetabolic with a maximum SUV of 5.4. There was no hypermetabolic mediastinal, hilar or axillary lymphadenopathy. Calcified left hilar nodes were observed. There is a 3.4 cm infrarenal abdominal aortic aneurysm. Calcified granulomas were present in both the liver and spleen. There is no suspicious osseous lesion. An ultrasound of the neck was performed on 08/03/2024. Evidently there was nonvisualization of the FDG avid right level 4 cervical lymph node. He underwent a right sided selective neck dissection of level 4 on 09/09/2024. During the procedure 1 cm abnormal lymph node was noted to be positive for adenocarcinoma on frozen section. Pathology: Metastatic adenocarcinoma lung was identified in the right level 4 lymph node. Disease involved 1 of 3 lymph nodes. It was noted to be a mucinous adenocarcinoma. It measured 1.4 cm in size. The tumor was positive for cytokeratin 7, Napsin A and TTF-1. Negative for CK20 and CDX2. Had PFTs done at [place]. Results not currently available. 09/25/2024: Patient completed brain MRI with and without contrast. This demonstrated mild volume loss and ischemic changes but no evidence of metastatic disease. 09/26/2024: Patient completed PET scan. This demonstrated no interval increase in metabolic activity or size in the hypermetabolic posterior right upper lobe spiculated nodule compared to the prior study in June. No hypermetabolic adenopathy or distant metastatic disease is present. Initial office visit: He feels well in general. His appetite is normal and he has not had any weight loss. No symptoms from atrial fibrillation. Tolerating Coumadin well without any unusual bleeding or unexplained bruising. He does not feel like he is limited by dyspnea. He is able to walk outside for considerable distances but his and daughter endorse that he does not do very much around the house. He is down to about 2 cigarettes a day at this point. Chronic cough. Denies chest pain. Presents for ongoing oncologic management. Interim history: Has one more fraction radiation left. Tolerating well. No other subjective change. REVIEW OF SYSTEMS: Constitutional: No episodes of fever and night sweats. Neuro: No symptoms of neuropathy. HEENT: No recent change in voice, vision or hearing. Resp: See above. CVS: No exertional chest pain, PND, orthopnea and LE edema. GI: No reflux, n/v, change in bowel habits or abdominal pain. : No dysuria or gross hematuria. Endo: No hot flashes. No polyuria and polydipsia. No heat and cold intolerance. Musculoskeletal: Chronic back pain. Derm: No current rash. Heme: No unusual bleeding and unexplained bruising. Psych: Normal mood. PHYSICAL EXAM: Vitals: Blood pressure 142/89, pulse 61, temperature 36.6 ?C (97.9 ?F), temperature source Temporal, weight 77.3 kg (170 lb 8 oz), SpO2 99%. Well-appearing and in no acute distress. EYES: Sclerae are anicteric bilaterally. LYMPHATIC: There is no palpable adenopathy. RESPIRATORY: Inspiratory breath sounds are of diminished and coarse intensity in all son. CARDIOVASCULAR: Rhythm is regular on today's exam ABDOMEN: The abdomen is nondistended. No tenderness. Extremities: No swelling or edema. SKIN: No jaundice. NGS/biomarkers/pile driver operator mutation analyses: See scanned pathology report. No pile driver operator mutations. Tumor proportion score 50%. Combined positive score 60. 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 -Since TPS 50%, reasonable to treat systemically with immunotherapy up to 2 years pending tolerance and course of the disease. I recommended pembrolizumab. -I discussed the rationale, logistics, potential risks (including but not limited to fatigue and autoimmune side effects and the small potential for as a consequence of severe toxicity/complications of therapy), benefits and alternatives, as well as the personnel involved in the administration of pembrolizumab. I answered his and his family's questions in detail and he verbalized under (more content not included)... [facility] History of Presen t illness Narrative Oncologic problem(s): 1) Metastatic NSCLC. HPI: The patient is a 79-year-old male with a past medical history significant for CAD (5 vessel CABG), COPD, atrial fibrillation, aortic aneurysm, hyperlipidemia, smoking, KWABENA (won't try CPAP) and non-small cell lung cancer. He originally had a low-dose screening CT chest on 07/10/2024. He was observed to have a 9 mm spiculated lesion in the right upper lobe. PET scan 07/25/2024 done at [facility] demonstrated a right cervical chain level 4 lymph node measuring 8 mm with an SUV of 9.2. In the right upper lobe there was a 1.1 cm nodule that was hypermetabolic with a maximum SUV of 5.4. There was no hypermetabolic mediastinal, hilar or axillary lymphadenopathy. Calcified left hilar nodes were observed. There is a 3.4 cm infrarenal abdominal aortic aneurysm. Calcified granulomas were present in both the liver and spleen. There is no suspicious osseous lesion. An ultrasound of the neck was performed on 08/03/2024. Evidently there was nonvisualization of the FDG avid right level 4 cervical lymph node. He underwent a right sided selective neck dissection of level 4 on 09/09/2024. During the procedure 1 cm abnormal lymph node was noted to be positive for adenocarcinoma on frozen section. Pathology: Metastatic adenocarcinoma lung was identified in the right level 4 lymph node. Disease involved 1 of 3 lymph nodes. It was noted to be a mucinous adenocarcinoma. It measured 1.4 cm in size. The tumor was positive for cytokeratin 7, Napsin A and TTF-1. Negative for CK20 and CDX2. Had PFTs done at [place]. Results not currently available. 09/25/2024: Patient completed brain MRI with and without contrast. This demonstrated mild volume loss and ischemic changes but no evidence of metastatic disease. 09/26/2024: Patient completed PET scan. This demonstrated no interval increase in metabolic activity or size in the hypermetabolic posterior right upper lobe spiculated nodule compared to the prior study in June. No hypermetabolic adenopathy or distant metastatic disease is present. Initial office visit: He feels well in general. His appetite is normal and he has not had any weight loss. No symptoms from atrial fibrillation. Tolerating Coumadin well without any unusual bleeding or unexplained bruising. He does not feel like he is limited by dyspnea. He is able to walk outside for considerable distances but his and daughter endorse that he does not do very much around the house. He is down to about 2 cigarettes a day at this point. Chronic cough. Denies chest pain. Presents for ongoing oncologic management. Interim history: Has one more fraction radiation left. Tolerating well. No other subjective change. REVIEW OF SYSTEMS: Constitutional: No episodes of fever and night sweats. Neuro: No symptoms of neuropathy. HEENT: No recent change in voice, vision or hearing. Resp: See above. CVS: No exertional chest pain, PND, orthopnea and LE edema. GI: No reflux, n/v, change in bowel habits or abdominal pain. : No dysuria or gross hematuria. Endo: No hot flashes. No polyuria and polydipsia. No heat and cold intolerance. Musculoskeletal: Chronic back pain. Derm: No current rash. Heme: No unusual bleeding and unexplained bruising. Psych: Normal mood. PHYSICAL EXAM: Vitals: Blood pressure 142/89, pulse 61, temperature 36.6 C (97.9 F), temperature source Temporal, weight 77.3 kg (170 lb 8 oz), SpO2 99%. Well-appearing and in no acute distress. EYES: Sclerae are anicteric bilaterally. LYMPHATIC: There is no palpable adenopathy. RESPIRATORY: Inspiratory breath sounds are of diminished and coarse intensity in all son. CARDIOVASCULAR: Rhythm is regular on today's exam ABDOMEN: The abdomen is nondistended. No tenderness. Extremities: No swelling or edema. SKIN: No jaundice. NGS/biomarkers/pile driver operator mutation analyses: See scanned pathology report. No pile driver operator mutations. Tumor proportion score 50%. Combined positive score 60. 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 -Since TPS 50%, reasonable to treat systemically with immunotherapy up to 2 years pending tolerance and course of the disease. I recommended pembrolizumab. -I discussed the rationale, logistics, potential risks (including but not limited to fatigue and autoimmune side effects and the small potential for as a consequence of severe toxicity/complications of therapy), benefits and alternatives, as well as the personnel involved in the administration of pembrolizumab. I answered his and his family's questions in detail and he verbalized understanding and agreed with the recommended therapy (wanted a few days to think it over though). Please see the electronic consent document for details of doses and schedule. -Plan to start with every 3 week dosing then moved to every 6 weeks if well-tolerated. Plan: -PET in about 2 months (Dr. Liu ordering). -Information on pembrolizumab provided. -He will call when makes a final decision. Portions of this documentation were copied and pasted from my previous office visit note dated 10/06/2024 in order to provide a cohesive continuity of the history. The note has been reviewed and edited and updated as necessary. I spent a total of 30 minutes on the date of the service which included preparing to see the patient, [id number] patient care, completing clinical documentation, counseling and educating the patient/family/caregiver, ordering medications, tests, or procedures, communicating with other HCPs (not separately reported), and communicating results to the patient/family/caregiver. Yordy Velaqzuez DO documented in this encounter [facility] 11-08-2024 Evaluation note Diagnosis Onset Date Resolution Primary adenocarcinoma of right lung acute November 08, 2024 11:30am Primary adenocarcinoma of right lung acute December 19, 2024 11:25am Secondary malignant neoplasm of lymph nodes of neck acute December 19, 2024 11:25am [place] [facility] [employer] [facility] Work Phone: 1(245) 972-528602-07-2025 History of Present illness Narrative* Yordy Velazquez DO - 10/06/2024 1:30 PM EST Patient referred by Dr. Liu for metastatic NSCLC. HPI: The patient is a 79-year-old male with a past medical history significant for CAD (5 vessel CABG), COPD, atrial fibrillation, aortic aneurysm, hyperlipidemia, smoking, KWABENA (won't try CPAP) and non-small cell lung cancer. He originally had a low-dose screening CT chest on 07/10/2024. He was observed to have a 9 mm spiculated lesion in the right upper lobe. PET scan 07/25/2024 done at [facility] demonstrated a right cervical chain level 4 lymph nodemeasuring 8 mm with an SUV of 9.2. In the right upper lobe there was a 1.1 cm nodule that was hypermetabolic with a maximum SUV of 5.4. There was no hypermetabolic mediastinal, hilar or axillary lymphadenopathy. Calcified left hilar nodes were observed. There is a 3.4 cm infrarenal abdominal aorticaneurysm. Calcified granulomas were present in both the liver and spleen. There is no suspicious osseous lesion. An ultrasound of the neck was performed on 08/03/2024. Evidently there was nonvisualization of the FDG avid right level 4 cervical lymph node. He underwent a right sided selective neck dissection of level 4 on 09/09/2024. During the procedure 1 cm abnormal lymph node was noted to be positive for adenocarcinoma on frozen section. Pathology: Metastatic adenocarcinoma lung was identified in the right level 4 lymph node. Disease involved 1 of 3 lymph nodes. It was noted to be a mucinous adenocarcinoma. It measured 1.4 cm in size. The tumorwas positive for cytokeratin 7, Napsin A and TTF-1. Negative for CK20 and CDX2. Had PFTs done at [place]. Results not currently available. 09/25/2024: Patient completed brain MRI with and without contrast. This demonstrated mild volume loss and ischemic changes but no evidence of metastatic disease. 09/26/2024: Patient completed PET scan. This demonstrated no interval increase in metabolic activityor size in the hypermetabolic posterior right upper lobe spiculated nodule compared to the prior study in June. No hypermetabolic adenopathy or distant metastatic disease is present. He feels well in general. His appetite is normal and he has not had any weight loss. No symptoms from atrial fibrillation. Tolerating Coumadin well without any unusual bleeding or unexplained bruising. He does not feel like he is limited by dyspnea. He is able to walk outside for considerable distances but his and daughter endorse that he does not do very much around the house. He is down to about 2 cigarettes a day at this point. Chronic cough. Denies chest pain. REVIEW OF SYSTEMS: Constitutional: No episodes of fever and night sweats. Neuro: No symptoms of neuropathy. HEENT: No recent change in voice, vision or hearing. Resp: See above. CVS: No exertional chest pain, PND, orthopnea and LE edema. GI: No reflux, n/v, change in bowel habits or abdominal pain. : No dysuria or gross hematuria. Endo: No hot flashes. No polyuria and polydipsia. No heat and cold intolerance. Musculoskeletal: Chronic back pain. Derm: No current rash. Heme: No unusual bleeding and unexplained bruising. Psych: Normal mood. PHYSICAL EXAM: Vitals: Blood pressure 129/70, pulse 60, temperature 36.7 C (98 F), temperature source Temporal, height 169.5 cm (5' 6.73), weight 77.8 kg (171 lb 8 oz), SpO2 96%. Well-appearing and in no acute distress. EYES: Sclerae are anicteric bilaterally. LYMPHATIC: There is no palpable adenopathy. RESPIRATORY: Inspiratory breath sounds are of diminished and coarse intensity in all son. CARDIOVASCULAR: Rhythm is regular on today's exam ABDOMEN: The abdomen is nondistended. No tenderness. Extremities: No swelling or edema. SKIN: No jaundice. NGS/biomarkers/pile driver operator mutation analyses: TBD. 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 -I talked with him and his family about the approach to managing stage IV non- small cell lung cancer. Admittedly his case is somewhat unusual, but very high likelihood he has mediastinal lymph node involvement. We discussed obtaining molecular testing and I anticipate recommending systemic therapy once he completes SBRT. Plan: -PD-L1 IHC. -Attenuator mutation panel. -Agree with SBRT to lung primary. -OV in about a month. I spent a total of 60 minutes on the date of the service which included preparing to see the patient (reviewing records in the [facility] electronic record), [id number] patient care, completing clinical documentation, obtaining and/or reviewing separately obtained history, performing a medically appropriate examination, counseling and educating the patient/family/caregiver, ordering medications, tests, or procedures, communicating with other HCPs (not separately reported), and communicating results to the patient/family/caregiver. Yordy Velazquez DO [facility] NoteHNO ID: [id number] Author: YORDY VELAZQUEZ DO Service: ? Author Type: Physician Type: Progress Notes Filed: 10/06/2024 17:08 Note Text: Patient referred by Dr. Liu for metastatic NSCLC. HPI: The patient is a 79-year-old male with a past medical history significant for CAD (5 vessel CABG), COPD, atrial fibrillation, aortic aneurysm, hyperlipidemia, smoking, KWABENA (won't try CPAP) and non-small cell lung cancer. He originally had a low-dose screening CT chest on 07/10/2024. He was observed to have a 9 mm spiculated lesion in the right upper lobe. PET scan 07/25/2024 done at [facility] demonstrated a right cervical chain level 4 lymph node measuring 8 mm with an SUV of 9.2. In the right upper lobe there was a 1.1 cm nodule that was hypermetabolic with a maximum SUV of 5.4. There was no hypermetabolic mediastinal, hilar or axillary lymphadenopathy. Calcified left hilar nodes were observed. There is a 3.4 cm infrarenal abdominal aortic aneurysm. Calcified granulomas were present in both the liver and spleen. There is no suspicious osseous lesion. An ultrasound of the neck was performed on 08/03/2024. Evidently there was nonvisualization of the FDG avid right level 4 cervical lymph node. He underwent a right sided selective neck dissection of level 4 on 09/09/2024. During the procedure 1 cm abnormal lymph node was noted to be positive for adenocarcinoma on frozen section. Pathology: Metastatic adenocarcinoma lung was identified in the right level 4 lymph node. Disease involved 1 of 3 lymph nodes. It was noted to be a mucinous adenocarcinoma. It measured 1.4 cm in size. The tumor was positive for cytokeratin 7, Napsin A and TTF-1. Negative for CK20 and CDX2. Had PFTs done at [place]. Results not currently available. 09/25/2024: Patient completed brain MRI with and without contrast. This demonstrated mild volume loss and ischemic changes but no evidence of metastatic disease. 09/26/2024: Patient completed PET scan. This demonstrated no interval increase in metabolic activity or size in the hypermetabolic posterior right upper lobe spiculated nodule compared to the prior study in June. No hypermetabolic adenopathy or distant metastatic disease is present. He feels well in general. His appetite is normal and he has not had any weight loss. No symptoms from atrial fibrillation. Tolerating Coumadin well without any unusual bleeding or unexplained bruising. He does not feel like he is limited by dyspnea. He is able to walk outside for considerable distances but his and daughter endorse that he does not do very much around the house. He is down to about 2 cigarettes a day at this point. Chronic cough. Denies chest pain. REVIEW OF SYSTEMS: Constitutional: No episodes of fever and night sweats. Neuro: No symptoms of neuropathy. HEENT: No recent change in voice, vision or hearing. Resp: See above. CVS: No exertional chest pain, PND, orthopnea and LE edema. GI: No reflux, n/v, change in bowel habits or abdominal pain. : No dysuria or gross hematuria. Endo: No hot flashes. No polyuria and polydipsia. No heat and cold intolerance. Musculoskeletal: Chronic back pain. Derm: No current rash. Heme: No unusual bleeding and unexplained bruising. Psych: Normal mood. PHYSICAL EXAM: Vitals: Blood pressure 129/70, pulse 60, temperature 36.7 ?C (98 ?F), temperature source Temporal, height 169.5 cm (5' 6.73), weight 77.8 kg (171 lb 8 oz), SpO2 96%. Well-appearing and in no acute distress. EYES: Sclerae are anicteric bilaterally. LYMPHATIC: There is no palpable adenopathy. RESPIRATORY: Inspiratory breath sounds are of diminished and coarse intensity in all son. CARDIOVASCULAR: Rhythm is regular on today's exam ABDOMEN: The abdomen is nondistended. No tenderness. Extremities: No swelling or edema. SKIN: No jaundice. NGS/biomarkers/pile driver operator mutation analyses: TBD. 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 -I talked with him and his family about the approach to managing stage IV non-small cell lung cancer. Admittedly his case is somewhat unusual, but very high likelihood he has mediastinal lymph node involvement. We discussed obtaining molecular testing and I anticipate recommending systemic therapy once he completes SBRT. Plan: -PD-L1 IHC. -Attenuator mutation panel. -Agree with SBRT to lung primary. -OV in about a month. I spent a total of 60 minutes on the date of the service which included preparing to see the patient (reviewing records in the [facility] electronic record), hpxv-[id number] patient care, completing clinical documentation, obtaining and/or reviewing separately obtained history, performing a medically appropriate examination, counseling and educating the patient/famil (more content not included)...[facility]01-31-[facility]25 Telephone encounter Note* Telephone Encounter - Rhianna Chandler - 09/29/2024 8:32 AM EST Scheduled with patient [facility] Work Phone: [phone] 136-661001-31-2025 Miscellaneous Notes* Telephone Encounter - Rhianna Chandler - 09/29/2024 8:32 AM EST Scheduled with patient * Telephone Encounter - Rufina Pennington - 09/29/2024 8:16 AM EST Lvm for patient to return the call. Updated demographics per facesheet. Rufina Pennington * Telephone Encounter - Nidia Blake LPN - 09/28/2024 4:27 PM EST Phone number updated in [employer]. Please confirm patient's address with him.I will scan in the face sheet from [facility]. Nidia Blake LPN * Telephone Encounter - Rhianna Chandler - 09/28/2024 4:13 PM EST 1st attempt. Unable to reach patient. Phone number in [employer] is no longer available. Demographics and Insurance also needs added/updated. Do we have updated records? 10/06 @ 1:[address] Velazquez has been held for scheduling. * Telephone Encounter - Nidia Blake LPN - 09/28/2024 4:04 PM EST PSS- please contact patient to offer a new patient appointment with Dr. Velazquez for 10/06/2024 @ 1:30. DX: lung cancer Referring provider: Dr. Liu All records are in [facility] system. Nidia Blake LPN [facility] Note * Telephone Encounter - Rufina Pennington - 09/29/2024 8:16 AM EST Lvm for patient to return the call. Updated demographics per facesheet. Rufina Pennington [facility]01-30-2025 Telephone encounter Note* Telephone Encounter - Nidia Blake LPN - 09/28/2024 4:27 PM EST Phone number updated in [employer]. Please confirm patient's address with him.I will scan in the face sheet from [facility]. Nidia Blake LPN [facility]01-30-2025 Telephone encounter Note* Telephone Encounter - Rhianna Chandler - 09/28/2024 4:13 PM EST 1st attempt. Unable to reach patient. Phone number in [employer] is no longer available. Demographics and Insurance also needs added/updated. Do we have updated records? 10/06 @ 1:[address] Velazquez has been held for scheduling. [facility]01-30-2025 Telephone encounter Note* Telephone Encounter - Nidia Blake LPN - 09/28/2024 4:04 PM EST PSS- please contact patient to offer a new patient appointment with Dr. Velazquez for 10/06/2024 @ 1:30. DX: lung cancer Referring provider: Dr. Liu All records are in [facility] system. Niida Blake LPN [facility]01-27-2025 Note* Exam Date Time Procedure Performing Provider Status 09/25/24 10:35 AM MRI Brain w/ + w/o Contrast ANDERS ESCOBAR MD; Auth (Verified) [id number] ORIGINAL HISTORY: Lung cancer COMPARISON: No TECHNIQUE: 1. Sagittal and axial T1-weighted images. 2. Axial FLAIR images. 3. Axial T2-weighted and T2*-weighted images. 4. Axial diffusion-weighted images with ADC map. 5. Axial, sagittal and coronal T1-weighted images following uncomplicated administration of intravenous gadolinium contrast. FINDINGS: The ventricles and sulci are normal to mildly enlarged. There are no abnormal intra or extra-axial fluid collections. There are mild punctate and nodular T2 hyperintensities in the cerebral white matter. Carrasco-white matter differentiation is maintained. There is no abnormal restriction of diffusion. There is a subcentimeter focus of T2* signal dropout in the right temporal lobe. There is no abnormal enhancement of the brain or its coverings. The paranasal sinuses are clear. IMPRESSION: Mild volume loss and small vessel ischemic changes. Interpreted by: Shiraz Escobar MD Preliminary Report By: Shiraz Escobar MD Electronically signed By Shiraz Escobar MD Dictated Date: 09/25/2024 12:54:27 PM Prelim Date: 09/25/2024 12:56:39 PM Sign Date: 09/25/2024 12:56:39 PM Ordering Provider: [facility]01-11-2025 Hospital Discharge instructions Patient Education 09/09/2024 12:20:43 Neck Dissection, Care After Neck Dissection, Care After This sheet gives you information about how to care for yourself after your procedure. Your health care provider may also give you more specific instructions. If you have problems or questions, contact your health care provider. What can I expect after the procedure? After the procedure, it is common to have: Pain or soreness. Stiffness in your neck or shoulder. Burning or tingling sensations in the area where you had surgery. Weakness or numbness if any nerves or muscles were removed. Follow these instructions at home: Medicines Take jkzj-pii-ovngrtd and prescription medicines only as told by your health care provider. Ask your health care provider if the medicine prescribed to you: ?Requires you to avoid driving or using heavy machinery. ?Can cause constipation. You may need to take actions to prevent or treat constipation, such as: ?Drink enough fluid to keep your urine pale yellow. ?Take gbga-qyr-cgclnav or prescription medicines. ?Eat foods that are high in fiber, such as fresh fruits and vegetables, whole grains, and beans. ?Limit foods that are high in fat and processed sugars, such as fried and sweet foods. Incision care Follow instructions from your health care provider about how to take care of your incision. Make sure you: ?Wash your hands with soap and water before and after you change your bandage (dressing). If soap and water are not available, use hand retarder operator. ?Change your dressing as told by your health care provider. ?Leave stitches (sutures), skin glue, or adhesive strips in place. These skin closures may need to stay in place for 2 weeks or longer. If adhesive strip edges start to loosen and curl up, you may trim the loose edges. Do not remove adhesive strips completely unless your health care provider tells you to do that. Check your incision area every day for signs of infection. Check for: ?Redness, swelling, or increasing pain. ?Fluid or blood. ?Warmth. ?Pus or a bad smell. If you have drainage tubes, follow instructions from your health care provider about how to care for them. Bathing Do not take baths, swim, or use a hot tub until your health care provider approves. Ask your healthcare provider if you may take showers. You may only be allowed to take sponge baths. If your health care provider approves bathing and showering, cover the dressing with a watertight covering to protect it from water. Do not let the bandage get wet. Keep the dressing dry until your health care provider says it can be removed. Activity Return to your normal activities as told by your health care provider. Ask your health care provider what activities are safe for you. Do not lift anything that is heavier than 10 lb (4.5 kg), or the limit that you are told, until your health care provider says that it is safe. Exercise only as told by your health care provider or physical therapist. ?Do not exercise the neck area until your health care provider approves. ?If muscles or nerves were removed during your procedure, your health care provider may recommend certain exercises or physical therapy to help you regain some of the motion in your upper body. General instructions Try eating soft foods for a while after the procedure. This can help reduce pain if your throat is sore or if you have difficulty swallowing. Do not use any products that contain nicotine or tobacco, such as cigarettes, e- cigarettes, and chewing tobacco. These can delay incision healing after surgery. If you need help quitting, ask your health care provider. Sleep and rest with your head raised (elevated) to help reduce swelling. Stay out of direct sunlight. Your skin is more sensitive to the sun after surgery. Use sunblock andwear a wide-brimmed hat to protect your skin. Keep all follow-up visits as told by your health care provider. This is important. Contact a health care provider if: You have pain that is not relieved by pain medicine. Your neck or shoulder gets weaker or stiffer. You have a fever. You have redness, swelling, or increasing pain at the site of your incision. You have fluid or blood coming from your incision. Your incision feels warm to the touch. You have pus or a bad smell coming from your incision. Get help right away if: Your drain comes out or gets blocked. You have difficulty breathing. Your incision starts to open or come apart. Summary After neck dissection surgery, it is common to have pain, soreness, and stiffness in your neck or shoulder. Follow instructions from your health care provider about how to take care of your incision. Try eating soft foods for a while after the procedure. This can help reduce pain if your throat is sore or if you have difficulty swallowing. Keep all follow-up visits as told by your health care provider. This is important. This information is not intended to replace advice given to you by your health care provider. Make sure you discuss any questions you have with your health care provider. Document Released: 11/07/2012 Document Revised: 05/09/2019 Document Reviewed: 05/09/2019 [employer] Patient Education 2020 [email or web address] Follow Up Care 08/16/2024 15:54:19 With:QIAN FAY MD, [facility] Address: [facility] [address] [place] [phone] When:09/18/2024 13:20:00 [facility] 01-11-2025 Note Discharge Instructions Thank you for allowing [facility] to assist you with your healthcare needs. The following is importantdischarge information regarding your hospital visit. Your Care Team MARLIN LANCASTER DO Your Diagnosis Postoperative pain What to do next Scheduled Follow-Up Appointments Appointment Type When With Where Contact Information StatusACC POC Established Patient 09/12/2024 09:00 AM EST [facility] [phone] Confirmed CV OV 09/19/2024 09:00 AM EST REILLY CHILDS GERIATRIC CASE MANAGER-MARBLE MACHINE OPERATOR [facility] CVC Confirmed PC OV 09/19/2024 12:00 PM EST MARLIN LANCASTER DO [address] [phone] Confirmed PC OV 12/26/2024 10:00 AM EDT MARLIN LANCASTER DO [address] [phone] Confirmed Follow Up Appointments Follow Up with QIAN FAY MD, [facility] When:09/18/2024 01:20 PM EST Where:[facility] [address] [place] [address] [address] [place] [phone]- [phone] The Following Activity and Diet Have Been Ordered for You Discharge Activity - Ordered -- Lifting Restricted less than 10 pounds, 09/09/24 11:04:00 EST Discharge Diet - Ordered -- Type of Diet: Regular, 09/09/24 11:04:00 EST The Following Equipment Has Been Ordered for You No qualifying data available. The Following Treatments Have Been Ordered for You Discharge Labs No qualifying data available. Discharge Radiology No qualifying data available. Other Therapies No qualifying data available. Post Acute Orders No qualifying data available. Someone Will Contact You Regarding These Home Health Referrals No home referrals have been ordered for you. No one will call you. Allergies contrast media (iodine-based) Seizure Medications Please ask your primary doctor or pharmacist before taking any other medication not listed, including over the counter drugs, herbal medications, vitamins and or supplements as they may interact withyour home medications. What How Much When Why Instructions Last Dose New acetaminophen-hydrocodone ([place] 325- 5 mg oral tablet) 1 tab(s) by mouth Every 6 hours as needed for Pain, scale 4-6 Postoperative pain Duration: 3 Days Pickup at [facility]/pharmacy #[id number] Unchanged amiodarone (amiodarone 200 mg oral tablet) 1 tab(s) by mouth Once a day Unchanged aspirin (aspirin 81 mg oral delayed release tablet) 1 tab(s) by mouth Every other day Start on Wednesday Unchanged pravastatin (pravastatin 40 mg oral tablet) 1 tab(s) by mouth Daily at bedtime Unchanged warfarin (warfarin 2 mg oral tablet) 0.5 tab(s) by mouth Every Wednesday and Wednesday TAKE 1 TABLET BY MOUTH EVERY DAY start warfarin on Wednesday Unchanged warfarin (warfarin 2 mg oral tablet) 1 tab(s) by mouth Every Wed / / / Wed / and Wednesday Start Warfarin on Wednesday Pharmacy Information [facility]/pharmacy #[id number]: [address], [place] [phone] Please take this list to your next doctor s visit. Bring all medications you take, including over the counter medications, herbals and other supplements with you to your doctor s visit. Patients and families are reminded to discard old lists and to update any records with all medication providers or retail pharmacies. Medication Leaflets acetaminophen and hydrocodone (a SEET a MIKKI manzanares and moira PANDYA done) Verdrocet What is the most important information I should know about acetaminophen and hydrocodone? MISUSE OF OPIOID MEDICINE CAN CAUSE ADDICTION, OVERDOSE, OR . Keep the medication in a place where others cannot get to it. Taking opioid medicine during may cause life-threatening withdrawal symptoms in the . Fatal side effects can occur if you use opioid medicine with alcohol, or with other drugs that cause drowsiness or slow your breathing. Stop taking this medicine and call your doctor right away if you have skin redness or a rash that spreads and causes blistering and peeling. What is acetaminophen and hydrocodone? Acetaminophen and hydrocodone is a combination medicine used to relieve moderate to severe pain. Acetaminophen and hydrocodone contains an opioid medicine, and may be habit-forming. Acetaminophen and hydrocodone may also be used for purposes not listed in this medication guide. What should I discuss with my healthcare provider before taking acetaminophen and hydrocodone? You should not use this medicine if you are allergic to acetaminophen or hydrocodone, or if you have: severe asthma or breathing problems; or a blockage in your stomach or intestines. Tell your doctor if you have ever had: breathing problems, sleep apnea (breathing stops during sleep); liver disease; a drug or alcohol addiction; kidney disease; a head injury or seizures; urination problems; or problems with your thyroid, pancreas, or gallbladder. If you use opioid medicine while you are , your baby could become dependent on the drug. This can cause life-threatening withdrawal symptoms in the baby after it is born. Babies born dependent on opioids may need medical treatment for several weeks. Ask a doctor before using opioid medicine if you are . Tell your doctor if you notice severe drowsiness or slow breathing in the nursing baby. How should I take acetaminophen and hydrocodone? Follow all directions on your prescription label. Never take this medicine in larger amounts, or for longer than prescribed. An overdose can damage your liver or cause . Tell your doctor if you feel an increased urge to use more of this medicine. Never share this medicine with another person, especially someone with a history of drug abuse or addiction. MISUSE CAN CAUSE ADDICTION, OVERDOSE, OR . Keep the medicine in a place where others cannot get to it. Selling or giving away this medicine is against the law. Measure liquid medicine carefully. Use the dosing syringe provided, or use a medicine dose-measuring device (not a kitchen spoon). If you need surgery or medical tests, tell the doctor ahead of time that you are using this medicine. You should not stop using this medicine suddenly. Follow your doctor's instructions about tapering your dose. Store at room temperature away from moisture and heat. Keep track of your medicine. You should be aware if anyone is using it improperly or without a prescription. Do not keep leftover opioid medication. Just one dose can cause in someone using this medicine accidentally or improperly. Ask your pharmacist where to locate a drug take-back disposal program.If there is no take-back program, flush the unused medicine down the toilet. What happens if I miss a dose? Since this medicine is used for pain, you are not likely to miss a dose. Skip any missed dose if itis almost time for your next dose. Do not use two doses at one time. What happens if I overdose? Seek emergency medical attention or call the Poison Help line at . An overdose of this medicine can be fatal, especially in a child or other person using the medicine without a prescription. Overdose symptoms may include nausea, vomiting, sweating, severe drowsiness, pinpoint pupils, slow breathing, or no breathing. Your doctor may recommend you get naloxone (a medicine to reverse an opioid overdose) and keep it with you at all times. A person caring for you can give the naloxone if you stop breathing or don't wake up. Your caregiver must still get emergency medical help and may need to perform CPR (cardiopulmonary resuscitation) on you while waiting for help to arrive. Anyone can buy naloxone from a pharmacy or local health department. Make sure any person caring foryou knows where you keep naloxone and how to use it. What should I avoid while taking acetaminophen and hydrocodone? Avoid driving or operating machinery until you know how this medicine will affect you. Dizziness ordrowsiness can cause falls, accidents, or severe injuries. Do not drink alcohol. Dangerous side effects or could occur. Ask a doctor or pharmacist before using any other medicine that may contain acetaminophen (sometimes abbreviated as APAP). Taking certain medications together can lead to a fatal overdose. What are the possible side effects of acetaminophen and hydrocodone? Get emergency medical help if you have signs of an allergic reaction: hives; difficulty breathing; swelling of your face, lips, tongue, or throat. Opioid medicine can slow or stop your breathing, and may occur. A person caring for you should give naloxone and/or seek emergency medical attention if you have slow breathing with long pauses,blue colored lips, or if you are hard to wake up. In rare cases, acetaminophen may cause a severe skin reaction that can be fatal. This could occur even if you have taken acetaminophen in the past and had no reaction. Stop taking this medicine and call your doctor right away if you have skin redness or a rash that spreads and causes blistering andpeeling. Call your doctor at once if you have: noisy breathing, sighing, shallow breathing, breathing that stops; a light-headed feeling, like you might pass out; liver problems--nausea, upper stomach pain, tiredness, loss of appetite, dark urine, jayson-colored stools, jaundice (yellowing of the skin or eyes); low cortisol levels-- nausea, vomiting, loss of appetite, dizziness, worsening tiredness or weakness; o high levels of serotonin in the body--agitation, hallucinations, fever, sweating, shivering, fast heart rate, muscle stiffness, twitching, loss of coordination, nausea, vomiting, diarrhea. Serious breathing problems may be more likely in older adults and in those who are debilitated or have wasting syndrome or chronic breathing disorders. Common side effects include: dizziness, drowsiness, feeling tired; nausea, vomiting, stomach pain; constipation; or headache. This is not a complete list of side effects and others may occur. Call your doctor for medical advice about side effects. You may report side effects to FDA at 5-012-XRJ-2118. What other drugs will affect acetaminophen and hydrocodone? You may have breathing problems or withdrawal symptoms if you start or stop taking certain other medicines. Tell your doctor if you also use an antibiotic, antifungal medication, heart or blood pressure medication, seizure medication, or medicine to treat HIV or hepatitis C. Opioid medication can interact with many other drugs and cause dangerous side effects or . Be sure your doctor knows if you also use: cold or allergy medicines, bronchodilator asthma/COPD medication, or a diuretic ('water pill'); medicines for motion sickness, irritable bowel syndrome, or overactive bladder; other opioids--opioid pain medicine or prescription cough medicine; a sedative like Valium--diazepam, alprazolam, lorazepam, Xanax, Klonopin, Versed, and others; drugs that make you sleepy or slow your breathing--a sleeping pill, muscle relaxer, medicine to treat mood disorders or mental illness; drugs that affect serotonin levels in your body--a stimulant, or medicine for depression, Parkinson's disease, migraine headaches, serious infections, or nausea and vomiting. This list is not complete. Other drugs may affect acetaminophen and hydrocodone, including prescription and qkid-jjl-nwiopdr medicines, vitamins, and herbal products. Not all possible interactions are listed here. Where can I get more information? Your doctor or pharmacist can provide more information about acetaminophen and hydrocodone. Remember, keep this and all other medicines out of the reach of children, never share your medicines with others, and use this medication only for the indication prescribed. Every effort has been made to ensure that the information provided by [employer] is accurate, up-to-date, and complete, but no guarantee is made to that effect. Drug information contained herein may be time sensitive. [employer] information has been compiled for use by healthcare practitioners and consumers in the [place] and therefore [employer] does not warrant that uses outside of the [place] are appropriate, unless specifically indicated otherwise. [employer] drug information does not endorse drugs, diagnose patients or recommend therapy. [employer] drug information isan informational resource designed to assist licensed healthcare practitioners in caring for their p atients and/or to serve consumers viewing this service as a supplement to, and not a substitute for, the expertise, skill, knowledge and judgment of healthcare practitioners. The absence of a warningfor a given drug or drug combination in no way should be construed to indicate that the drug or drug combination is safe, effective or appropriate for any given patient. [employer] does not assume any responsibility for any aspect of healthcare administered with the aid of information [employer] provides. The information contained herein is not intended to cover all possible uses, directions, precautions, warnings, drug interactions, allergic reactions, or adverse effects. If you have questions about the drugs you are taking, check with your doctor, nurse or pharmacist. Copyright 4078-8435 [employer]. Version: 19.02. Revision Date: 12/07/2023. Education Materials Neck Dissection, Care After This sheet gives you information about how to care for yourself after your procedure. Your health care provider may also give you more specific instructions. If you have problems or questions, contact your health care provider. What can I expect after the procedure? After the procedure, it is common to have: Pain or soreness. Stiffness in your neck or shoulder. Burning or tingling sensations in the area where you had surgery. Weakness or numbness if any nerves or muscles were removed. Follow these instructions at home: Medicines Take qwfk-xdx-dzeqkbt and prescription medicines only as told by your health care provider. Ask your health care provider if the medicine prescribed to you: ? Requires you to avoid driving or using heavy machinery. ? Can cause constipation. You may need to take actions to prevent or treat constipation, such as: ? Drink enough fluid to keep your urine pale yellow. ? Take ywii-qwb-pmjipmb or prescription medicines. ? Eat foods that are high in fiber, such as fresh fruits and vegetables, whole grains, and beans. ? Limit foods that are high in fat and processed sugars, such as fried and sweet foods. Incision care Follow instructions from your health care provider about how to take care of your incision. Make sure you: ? Wash your hands with soap and water before and after you change your bandage (dressing). If soap and water are not available, use hand retarder operator. ? Change your dressing as told by your health care provider. ? Leave stitches (sutures), skin glue, or adhesive strips in place. These skin closures may need to stay in place for 2 weeks or longer. If adhesive strip edges start to loosen and curl up, you may trim the loose edges. Do not remove adhesive strips completely unless your health care provider tells you to do that. Check your incision area every day for signs of infection. Check for: ? Redness, swelling, or increasing pain. ? Fluid or blood. ? Warmth. ? Pus or a bad smell. If you have drainage tubes, follow instructions from your health care provider about how to care for them. Bathing Do not take baths, swim, or use a hot tub until your health care provider approves. Ask your healthcare provider if you may take showers. You may only be allowed to take sponge baths. If your health care provider approves bathing and showering, cover the dressing with a watertight covering to protect it from water. Do not let the bandage get wet. Keep the dressing dry until your health care provider says it can be removed. Activity Return to your normal activities as told by your health care provider. Ask your health care provider what activities are safe for you. Do not lift anything that is heavier than 10 lb (4.5 kg), or the limit that you are told, until your health care provider says that it is safe. Exercise only as told by your health care provider or physical therapist. ? Do not exercise the neck area until your health care provider approves. ? If muscles or nerves were removed during your procedure, your health care provider may recommend certain exercises or physical therapy to help you regain some of the motion in your upper body. General instructions Try eating soft foods for a while after the procedure. This can help reduce pain if your throat is sore or if you have difficulty swallowing. Do not use any products that contain nicotine or tobacco, such as cigarettes, e- cigarettes, and chewing tobacco. These can delay incision healing after surgery. If you need help quitting, ask your health care provider. Sleep and rest with your head raised (elevated) to help reduce swelling. Stay out of direct sunlight. Your skin is more sensitive to the sun after surgery. Use sunblock andwear a wide-brimmed hat to protect your skin. Keep all follow-up visits as told by your health care provider. This is important. Contact a health care provider if: You have pain that is not relieved by pain medicine. Your neck or shoulder gets weaker or stiffer. You have a fever. You have redness, swelling, or increasing pain at the site of your incision. You have fluid or blood coming from your incision. Your incision feels warm to the touch. You have pus or a bad smell coming from your incision. Get help right away if: Your drain comes out or gets blocked. You have difficulty breathing. Your incision starts to open or come apart. Summary After neck dissection surgery, it is common to have pain, soreness, and stiffness in your neck or shoulder. Follow instructions from your health care provider about how to take care of your incision. Try eating soft foods for a while after the procedure. This can help reduce pain if your throat is sore or if you have difficulty swallowing. Keep all follow-up visits as told by your health care provider. This is important. This information is not intended to replace advice given to you by your health care provider. Make sure you discuss any questions you have with your health care provider. Document Released: 11/07/2012 Document Revised: 05/09/2019 Document Reviewed: 05/09/2019 [employer] Patient Education 2020 [email or web address] Additional Information VACCINATE! IT SAVES LIVES! Members of the community who have not yet received the COVID-19 vaccine and would like to receive it can visit one of [facility] vaccine clinics. There are many vaccine clinic locations within the [facility]. For locations and available times, please visit [email or web address].[place].gov/. It is important to note that some COVID mobile vaccine clinics are held outdoors and may be canceled in rainy or stormy conditions. To learn more about pediatric vaccinations (ages 5-11), we invite you to visit the [facility] webpage. [email or web address]/[email or web address] stions.htmlTo learn more about the COVID-19 vaccine, we invite you to visit the CDC website for a list of frequently asked questions.https://www.cdc.gov/coronavirus/2019-ncov/vaccines/faq.html [facility] Patient Portal Access Instructions: Stay connected with your healthcare team and access your personal medical information anytime with the [facility] Patient Portal. Please follow the directions below to create your [facility] account: 1.Access the email account you provided upon registration to the hospital/physician office.2.Look for an invitation email from [facility].3.Open the email and access the invitation link: AcceptInvitation to [facility].4.Fill in the required son to create your account. To access your account, visit [employer]. Click the blue button labeled Access Patient Portal and then log in with the username and password that you created in the steps above. You will be able to view your test results, lab results, a summary of your visits, upcoming appointments and more. There is also a convenient messaging option where you can send secure messages to your p [employer]. In addition, you will have the ability to download any documents or summaries to your computer and/or send the information securely to a physician. Remember that your healthcare information is confidential, so carefully consider who you will allowto register on the [facility] Patient Portal for access to your information. You can also access the [facility] Patient Portal on the [facility] douglas. Simply click on Patient Portal and then log into your account. If you would like to receive a full copy of your medical records, please contact the [facility] Medical Records Department by calling [phone], Wednesday through Wednesday between 8 a.m. and 4:30 p.m. HOW TO SAFELY DISPOSE OF PRESCRIPTION MEDICATIONS Please use one of the following methods to safely dispose of your unused medications. 1.Use a drug disposal kit: the drug disposal pouch allows you to safely discard your old and unuseddrugs. Ask your nurse to give you one when you are discharged.2.Visit a local take-back location: Many local pharmacies and police departments have programs that collect old and unwanted prescriptiondrugs. Call your local pharmacy or go to http://[employer].Spiralcat/1B3Ab8a to find one close to you.3.Make use of household items: Use cat litter or old coffee grounds to dispose medications if other options arenot available. Mix your drugs with these household products, seal them in an airtight container andthrow it into the garbage. Call [facility]: [phone] to be sure your drugs can be disposed of in this way. Some medicines may require a different approach.4.Never flush your medications down the toilet. IF YOU HAVE BEEN PRESCRIBED AN OPIOID FOR PAIN If you have been prescribed an opioid (such as hydrocodone, oxycodone or morphine), it is critical to understand the possible side effects and risks of opioid pain medications. Even when taken as directed, opioids can have several side effects including: Tolerance, meaning you might need to take more of a medication for the same pain relief. Nausea, vomiting and/or constipation. Sleepiness, dizziness, dry mouth, confusion, depression or itching. Physical dependence, meaning you have withdrawal symptoms when a medication is stopped, can develop within a few days. KNOW YOUR RESPONSIBILITIES It is important to know exactly how much and how often to take the opioid pain medications you are prescribed. Never take opioids in higher amounts or more often than prescribed. Do not combine opioids with alcohol or other drugs that cause drowsiness, such as benzodiazepines, also known as benzos, including diazepam and alprazolam, muscle relaxants or sleep aids. Never sell or share prescription opioids. This is illegal. Store opioids in a secure place and out of reach of others (including children, family, friends and visitors). The last page of this document has been signed and retained as a CHART COPY. Signatures Patient Education Materials Neck Dissection, Care After Medication Leaflets acetaminophen and hydrocodone My discharge plan and instructions have been reviewed and explained to me and I,CJ GONZALEZ understand my current condition and have read and understand these discharge instructions. I have received a written copy of the plan/instructions. If I have questions, I am aware that I should contact my doctor. Patient/Supervisor Of Way Signature: Date/Time: Relationship to Patient: Witness Name/Signature: Date/Time: Cyn [id number] Note Discharge Instructions Thank you for allowing [facility] to assist you with your healthcare needs. The following is importantdischarge information regarding your hospital visit. 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 [facility] CVC Confirmed PC OV 09/19/2024 12:00 PM EST MARLIN LANCASTER DO [address] [id number] Confirmed PC OV 12/26/2024 10:00 AM EDT MARLIN LANCASTER [address] [phone] Confirmed Follow Up Appointments Follow Up with QIAN FAY MD, [facility] When:09/18/2024 01:20 PM EST Where:[facility] [address] [address] [place] [phone] The Following Activity and Diet Have Been Ordered for You Discharge Activity - Ordered -- Lifting Restricted less than 10 pounds, 09/09/24 11:04:00 EST Discharge Diet - Ordered -- Type of Diet: Regular, 09/09/24 11:04:00 EST The Following Equipment Has Been Ordered for You No qualifying data available. The Following Treatments Have Been Ordered for You Discharge Labs No qualifying data available. Discharge Radiology No qualifying data available. Other Therapies No qualifying data available. Post Acute Orders No qualifying data available. Someone Will Contact You Regarding These Home Health Referrals No home referrals have been ordered for you. No one will call you. Allergies contrast media (iodine-based) Seizure Medications Please ask your primary doctor or pharmacist before taking any other medication not listed, including over the counter drugs, herbal medications, vitamins and or supplements as they may interact withyour home medications. What How Much When Why Instructions Last Dose New acetaminophen-hydrocodone ([place] 325- 5 mg oral tablet) 1 tab(s) by mouth Every 6 hours as needed for Pain, scale 4-6 Postoperative pain Duration: 3 Days Pickup at [facility]/pharmacy #[id number] Unchanged amiodarone (amiodarone 200 mg oral tablet) 1 tab(s) by mouth Once a day Unchanged aspirin (aspirin 81 mg oral delayed release tablet) 1 tab(s) by mouth Every other day Start on Wednesday Unchanged pravastatin (pravastatin 40 mg oral tablet) 1 tab(s) by mouth Daily at bedtime Unchanged warfarin (warfarin 2 mg oral tablet) 0.5 tab(s) by mouth Every Wednesday and Wednesday TAKE 1 TABLET BY MOUTH EVERY DAY start warfarin on Wednesday Unchanged warfarin (warfarin 2 mg oral tablet) 1 tab(s) by mouth Every Wed / / / Wed / and Wednesday Start Warfarin on Wednesday Pharmacy Information [facility]/pharmacy #[id number]: [address], [place] [id number] [phone] Please take this list to your next doctor s visit. Bring all medications you take, including over the counter medications, herbals and other supplements with you to your doctor s visit. Patients and families are reminded to discard old lists and to update any records with all medication providers or retail pharmacies. Medication Leaflets acetaminophen and hydrocodone (a SEET a MIN oh fen and moira PANDYA done) Verdrocet What is the most important information I should know about acetaminophen and hydrocodone? MISUSE OF OPIOID MEDICINE CAN CAUSE ADDICTION, OVERDOSE, OR . Keep the medication in a place where others cannot get to it. Taking opioid medicine during may cause life-threatening withdrawal symptoms in the . Fatal side effects can occur if you use opioid medicine with alcohol, or with other drugs that cause drowsiness or slow your breathing. Stop taking this medicine and call your doctor right away if you have skin redness or a rash that spreads and causes blistering and peeling. What is acetaminophen and hydrocodone? Acetaminophen and hydrocodone is a combination medicine used to relieve moderate to severe pain. Acetaminophen and hydrocodone contains an opioid medicine, and may be habit-forming. Acetaminophen and hydrocodone may also be used for purposes not listed in this medication guide. What should I discuss with my healthcare provider before taking acetaminophen and hydrocodone? You should not use this medicine if you are allergic to acetaminophen or hydrocodone, or if you have: severe asthma or breathing problems; or a blockage in your stomach or intestines. Tell your doctor if you have ever had: breathing problems, sleep apnea (breathing stops during sleep); liver disease; a drug or alcohol addiction; kidney disease; a head injury or seizures; urination problems; or problems with your thyroid, pancreas, or gallbladder. If you use opioid medicine while you are , your baby could become dependent on the drug. This can cause life-threatening withdrawal symptoms in the baby after it is born. Babies born dependent on opioids may need medical treatment for several weeks. Ask a doctor before using opioid medicine if you are . Tell your doctor if you notice severe drowsiness or slow breathing in the nursing baby. How should I take acetaminophen and hydrocodone? Follow all directions on your prescription label. Never take this medicine in larger amounts, or for longer than prescribed. An overdose can damage your liver or cause . Tell your doctor if you feel an increased urge to use more of this medicine. Never share this medicine with another person, especially someone with a history of drug abuse or addiction. MISUSE CAN CAUSE ADDICTION, OVERDOSE, OR . Keep the medicine in a place where others cannot get to it. Selling or giving away this medicine is against the law. Measure liquid medicine carefully. Use the dosing syringe provided, or use a medicine dose-measuring device (not a kitchen spoon). If you need surgery or medical tests, tell the doctor ahead of time that you are using this medicine. You should not stop using this medicine suddenly. Follow your doctor's instructions about tapering your dose. Store at room temperature away from moisture and heat. Keep track of your medicine. You should be aware if anyone is using it improperly or without a prescription. Do not keep leftover opioid medication. Just one dose can cause in someone using this medicine accidentally or improperly. Ask your pharmacist where to locate a drug take-back disposal program.If there is no take-back program, flush the unused medicine down the toilet. What happens if I miss a dose? Since this medicine is used for pain, you are not likely to miss a dose. Skip any missed dose if itis almost time for your next dose. Do not use two doses at one time. What happens if I overdose? Seek emergency medical attention or call the Poison Help line at . An overdose of this medicine can be fatal, especially in a child or other person using the medicine without a prescription. Overdose symptoms may include nausea, vomiting, sweating, severe drowsiness, pinpoint pupils, slow breathing, or no breathing. Your doctor may recommend you get naloxone (a medicine to reverse an opioid overdose) and keep it with you at all times. A person caring for you can give the naloxone if you stop breathing or don't wake up. Your caregiver must still get emergency medical help and may need to perform CPR (cardiopulmonary resuscitation) on you while waiting for help to arrive. Anyone can buy naloxone from a pharmacy or local health department. Make sure any person caring foryou knows where you keep naloxone and how to use it. What should I avoid while taking acetaminophen and hydrocodone? Avoid driving or operating machinery until you know how this medicine will affect you. Dizziness ordrowsiness can cause falls, accidents, or severe injuries. Do not drink alcohol. Dangerous side effects or could occur. Ask a doctor or pharmacist before using any other medicine that may contain acetaminophen (sometimes abbreviated as APAP). Taking certain medications together can lead to a fatal overdose. What are the possible side effects of acetaminophen and hydrocodone? Get emergency medical help if you have signs of an allergic reaction: hives; difficulty breathing; swelling of your face, lips, tongue, or throat. Opioid medicine can slow or stop your breathing, and may occur. A person caring for you should give naloxone and/or seek emergency medical attention if you have slow breathing with long pauses,blue colored lips, or if you are hard to wake up. In rare cases, acetaminophen may cause a severe skin reaction that can be fatal. This could occur even if you have taken acetaminophen in the past and had no reaction. Stop taking this medicine and call your doctor right away if you have skin redness or a rash that spreads and causes blistering andpeeling. Call your doctor at once if you have: noisy breathing, sighing, shallow breathing, breathing that stops; a light-headed feeling, like you might pass out; liver problems--nausea, upper stomach pain, tiredness, loss of appetite, dark urine, jayson-colored stools, jaundice (yellowing of the skin or eyes); low cortisol levels-- nausea, vomiting, loss of appetite, dizziness, worsening tiredness or weakness; o high levels of serotonin in the body--agitation, hallucinations, fever, sweating, shivering, fast heart rate, muscle stiffness, twitching, loss of coordination, nausea, vomiting, diarrhea. Serious breathing problems may be more likely in older adults and in those who are debilitated or have wasting syndrome or chronic breathing disorders. Common side effects include: dizziness, drowsiness, feeling tired; nausea, vomiting, stomach pain; constipation; or headache. This is not a complete list of side effects and others may occur. Call your doctor for medical advice about side effects. You may report side effects to FDA at 9-431-XWF-7184. What other drugs will affect acetaminophen and hydrocodone? You may have breathing problems or withdrawal symptoms if you start or stop taking certain other medicines. Tell your doctor if you also use an antibiotic, antifungal medication, heart or blood pressure medication, seizure medication, or medicine to treat HIV or hepatitis C. Opioid medication can interact with many other drugs and cause dangerous side effects or . Be sure your doctor knows if you also use: cold or allergy medicines, bronchodilator asthma/COPD medication, or a diuretic ('water pill'); medicines for motion sickness, irritable bowel syndrome, or overactive bladder; other opioids--opioid pain medicine or prescription cough medicine; a sedative like Valium--diazepam, alprazolam, lorazepam, Xanax, Klonopin, Versed, and others; drugs that make you sleepy or slow your breathing--a sleeping pill, muscle relaxer, medicine to treat mood disorders or mental illness; drugs that affect serotonin levels in your body--a stimulant, or medicine for depression, Parkinson's disease, migraine headaches, serious infections, or nausea and vomiting. This list is not complete. Other drugs may affect acetaminophen and hydrocodone, including prescription and mqit-ejz-cvmhjzr medicines, vitamins, and herbal products. Not all possible interactions are listed here. Where can I get more information? Your doctor or pharmacist can provide more information about acetaminophen and hydrocodone. Remember, keep this and all other medicines out of the reach of children, never share your medicines with others, and use this medication only for the indication prescribed. Every effort has been made to ensure that the information provided by [employer]. ('[employer]') is accurate, up-to-date, and complete, but no guarantee is made to that effect. Drug information contained herein may be time sensitive. [employer] information has been compiled for use by healthcare practitioners and consumers in the [place] and therefore [employer] does not warrant that uses outside of the [place] are appropriate, unless specifically indicated otherwise. [employer] drug information does not endorse drugs, diagnose patients or recommend therapy. [employer] drug information isan informational resource designed to assist licensed healthcare practitioners in caring for their p atients and/or to serve consumers viewing this service as a supplement to, and not a substitute for, the expertise, skill, knowledge and judgment of healthcare practitioners. The absence of a warningfor a given drug or drug combination in no way should be construed to indicate that the drug or drug combination is safe, effective or appropriate for any given patient. [employer] does not assume any responsibility for any aspect of healthcare administered with the aid of information [employer] provides. The information contained herein is not intended to cover all possible uses, directions, precautions, warnings, drug interactions, allergic reactions, or adverse effects. If you have questions about the drugs you are taking, check with your doctor, nurse or pharmacist. Copyright 0075-7727 [employer]. Version: 19.02. Revision Date: 12/07/2023. Education Materials Neck Dissection, Care After This sheet gives you information about how to care for yourself after your procedure. Your health care provider may also give you more specific instructions. If you have problems or questions, contact your health care provider. What can I expect after the procedure? After the procedure, it is common to have: Pain or soreness. Stiffness in your neck or shoulder. Burning or tingling sensations in the area where you had surgery. Weakness or numbness if any nerves or muscles were removed. Follow these instructions at home: Medicines Take iwpl-fkw-fnqsqhx and prescription medicines only as told by your health care provider. Ask your health care provider if the medicine prescribed to you: ? Requires you to avoid driving or using heavy machinery. ? Can cause constipation. You may need to take actions to prevent or treat constipation, such as: ? Drink enough fluid to keep your urine pale yellow. ? Take ooyj-sgy-jrqtffn or prescription medicines. ? Eat foods that are high in fiber, such as fresh fruits and vegetables, whole grains, and beans. ? Limit foods that are high in fat and processed sugars, such as fried and sweet foods. Incision care Follow instructions from your health care provider about how to take care of your incision. Make sure you: ? Wash your hands with soap and water before and after you change your bandage (dressing). If soap and water are not available, use hand retarder operator. ? Change your dressing as told by your health care provider. ? Leave stitches (sutures), skin glue, or adhesive strips in place. These skin closures may need to stay in place for 2 weeks or longer. If adhesive strip edges start to loosen and curl up, you may trim the loose edges. Do not remove adhesive strips completely unless your health care provider tells you to do that. Check your incision area every day for signs of infection. Check for: ? Redness, swelling, or increasing pain. ? Fluid or blood. ? Warmth. ? Pus or a bad smell. If you have drainage tubes, follow instructions from your health care provider about how to care for them. Bathing Do not take baths, swim, or use a hot tub until your health care provider approves. Ask your healthcare provider if you may take showers. You may only be allowed to take sponge baths. If your health care provider approves bathing and showering, cover the dressing with a watertight covering to protect it from water. Do not let the bandage get wet. Keep the dressing dry until your health care provider says it can be removed. Activity Return to your normal activities as told by your health care provider. Ask your health care provider what activities are safe for you. Do not lift anything that is heavier than 10 lb (4.5 kg), or the limit that you are told, until your health care provider says that it is safe. Exercise only as told by your health care provider or physical therapist. ? Do not exercise the neck area until your health care provider approves. ? If muscles or nerves were removed during your procedure, your health care provider may recommend certain exercises or physical therapy to help you regain some of the motion in your upper body. General instructions Try eating soft foods for a while after the procedure. This can help reduce pain if your throat is sore or if you have difficulty swallowing. Do not use any products that contain nicotine or tobacco, such as cigarettes, e- cigarettes, and chewing tobacco. These can delay incision healing after surgery. If you need help quitting, ask your health care provider. Sleep and rest with your head raised (elevated) to help reduce swelling. Stay out of direct sunlight. Your skin is more sensitive to the sun after surgery. Use sunblock andwear a wide-brimmed hat to protect your skin. Keep all follow-up visits as told by your health care provider. This is important. Contact a health care provider if: You have pain that is not relieved by pain medicine. Your neck or shoulder gets weaker or stiffer. You have a fever. You have redness, swelling, or increasing pain at the site of your incision. You have fluid or blood coming from your incision. Your incision feels warm to the touch. You have pus or a bad smell coming from your incision. Get help right away if: Your drain comes out or gets blocked. You have difficulty breathing. Your incision starts to open or come apart. Summary After neck dissection surgery, it is common to have pain, soreness, and stiffness in your neck or shoulder. Follow instructions from your health care provider about how to take care of your incision. Try eating soft foods for a while after the procedure. This can help reduce pain if your throat is sore or if you have difficulty swallowing. Keep all follow-up visits as told by your health care provider. This is important. This information is not intended to replace advice given to you by your health care provider. Make sure you discuss any questions you have with your health care provider. Document Released: 11/07/2012 Document Revised: 05/09/2019 Document Reviewed: 05/09/2019 Elsevier Patient Education 2020 [email or web address] Additional Information VACCINATE! IT SAVES LIVES! Members of the community who have not yet received the COVID-19 vaccine and would like to receive it can visit one of [facility] vaccine clinics. There are many vaccine clinic locations within the [facility]. For locations and available times, please visit [email or web address].[place].gov/. It is important to note that some COVID mobile vaccine clinics are held outdoors and may be canceled in rainy or stormy conditions. To learn more about pediatric vaccinations (ages 5-11), we invite you to visit the [facility] webpage. [email or web address]/[email or web address]-[email or web address] [email or web address] learn more about the COVID-19 vaccine, we invite you to visit the CDC website for a list of frequently asked questions.https://www.cdc.gov/coronavirus/2019-ncov/vaccines/faq.html [facility] Patient Portal Access Instructions: Stay connected with your healthcare team and access your personal medical information anytime with the [facility] Patient Portal. Please follow the directions below to create your [facility] account: 1.Access the email account you provided upon registration to the hospital/physician office.2.Look for an invitation email from [facility].3.Open the email and access the invitation link: AcceptInvitation to [facility].4.Fill in the required son to create your account. To access your account, visit [email or web address]. Click the blue button labeled Access Patient Portal and then log in with the username and password that you created in the steps above. You will be able to view your test results, lab results, a summary of your visits, upcoming appointments and more. There is also a convenient messaging option where you can send secure messages to your p [employer]. In addition, you will have the ability to download any documents or summaries to your computer and/or send the information securely to a physician. Remember that your healthcare information is confidential, so carefully consider who you will allowto register on the [facility] Patient Portal for access to your information. You can also access the [facility] Patient Portal on the [facility]. Simply click on Patient Portal and then log into your account. If you would like to receive a full copy of your medical records, please contact the [facility] Medical Records Department by calling [phone], Wednesday through Wednesday between 8 a.m. and 4:30 p.m. HOW TO SAFELY DISPOSE OF PRESCRIPTION MEDICATIONS Please use one of the following methods to safely dispose of your unused medications. 1.Use a drug disposal kit: the drug disposal pouch allows you to safely discard your old and unuseddrugs. Ask your nurse to give you one when you are discharged.2.Visit a local take-back location: Many local pharmacies and police departments have programs that collect old and unwanted prescriptiondrugs. Call your local pharmacy or go to http://[employer].Spiralcat/0J9Ur4n to find one close to you.3.Make use of household items: Use cat litter or old coffee grounds to dispose medications if other options arenot available. Mix your drugs with these household products, seal them in an airtight container andthrow it into the garbage. Call [facility]: [phone] to be sure your drugs can be disposed of in this way. Some medicines may require a different approach.4.Never flush your medications down the toilet. IF YOU HAVE BEEN PRESCRIBED AN OPIOID FOR PAIN If you have been prescribed an opioid (such as hydrocodone, oxycodone or morphine), it is critical to understand the possible side effects and risks of opioid pain medications. Even when taken as directed, opioids can have several side effects including: Tolerance, meaning you might need to take more of a medication for the same pain relief. Nausea, vomiting and/or constipation. Sleepiness, dizziness, dry mouth, confusion, depression or itching. Physical dependence, meaning you have withdrawal symptoms when a medication is stopped, can develop within a few days. KNOW YOUR RESPONSIBILITIES It is important to know exactly how much and how often to take the opioid pain medications you are prescribed. Never take opioids in higher amounts or more often than prescribed. Do not combine opioids with alcohol or other drugs that cause drowsiness, such as benzodiazepines, also known as benzos, including diazepam and alprazolam, muscle relaxants or sleep aids. Never sell or share prescription opioids. This is illegal. Store opioids in a secure place and out of reach of others (including children, family, friends and visitors). The last page of this document has been signed and retained as a CHART COPY. Signatures Patient Education Materials Neck Dissection, Care After Medication Leaflets acetaminophen and hydrocodone My discharge plan and instructions have been reviewed and explained to me and ILISA GEORGE A understand my current condition and have read and understand these discharge instructions. I have received a written copy of the plan/instructions. If I have questions, I am aware that I should contact my doctor. Patient/Supervisor Of Way Signature: Date/Time: Relationship to Patient: Witness Name/Signature: Date/Time: [id number] Discharge summary Date of Service 09/09/2024 at 11 AM Discharge Diagnosis Metastatic adenocarcinoma of the lung Hospital Course The patient's was taken to the operating room by Dr. Fay yesterday and had a right sided selective neck dissection dissecting level 4. He was able to identify a 1 cm abnormal node that was positive for adenocarcinoma on frozen section. The patient tolerated the surgery well and had an uneventful postop course on the regular floor. Allergies contrast media (iodine-based) Seizure Procedures Right sided selective neck dissection level 4 Consults No qualifying data available. Objective Vitals and Measurements T: 36.4 C (Oral) TMIN: 36.0 C (Temporal Artery) TMAX: 36.7 C (Oral) HR: 58 RR: 16 BP: 132/66 SpO2: 94% HT: 167.6 cm WT: 75.7 kg BMI: 26.95 Weight Dosing Weight: 75.7 kg (09/08/24) Dosing Weight: 75.7 kg (09/08/24) The patient's neck is as expected with no evidence of hematoma with no erythema exudate or drainage. Code Status Code Status - Ordered -- 09/08/24 10:30:00 EST, Full Code - PCP will confirm in AM, Constant Order Admission Date 09/08/2024 Discharge Date 09/09/2024 Patient Instructions The patient is doing well postop day 1 status post right selective neck dissection. 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 He is stable for discharge discharge homethis morning. His drain had decreasing outputs and was removed this morning. I stressed the need toambulate but avoid heavy lifting or straining. He will follow-up with Dr. Fay next week Medications Unchanged amiodarone (amiodarone 200 mg oral tablet)1 tab(s) by mouth once a day. Refills: 3. aspirin (aspirin 81 mg oral delayed release tablet)1 tab(s) by mouth every other day. pravastatin (pravastatin 40 mg oral tablet)1 tab(s) by mouth daily at bedtime. Refills: 3. warfarin (warfarin 2 mg oral tablet)0.5 tab(s) by mouth every Wednesday and Wednesday. TAKE 1 TABLET BY MOUTH EVERY DAY. warfarin (warfarin 2 mg oral tablet)1 tab(s) by mouth every Wed / / / Wed / and Wednesday. Refills: 3. Follow Up Appointments [address] Fay Follow Up Labs/Studies Discharge Labs No Follow-up Labs Discharge Studies No Follow-up Studies Discharge Diet As tolerated Discharge Activity No heavy lifting more than 10 pounds Condition on Discharge Stable Readmission Risk/Palliative Score No qualifying data available. Discharge Disposition Home Digitally Signed by SABINA MYERS MD on 09/09/2024 11:03 AM [id number] Anesthesiology Consult note Patient: CJ GONZALEZ Age: 79 years Sex: Male : 1945 Associated Diagnoses: None Author: NISH MARTINEZ MD Postoperative Information Post Operative Info: Post op day: POD0. Patient location: PACU. Assessment Postanesthesia assessment Vitals: Vital signs from flowsheet : Vital Signs 09/08/2024 11:03 EST Systolic Blood Pressure Non-Invasive 167 mmHg HI Diastolic Blood Pressure Non-Invasive 146 mmHg >HHI Mean Arterial Pressure (NBP) 154 mmHg 09/08/2024 11:03 EST Heart Rate Monitored 74 bpm 09/08/2024 11:03 EST Respiratory Rate 16 br/min 09/08/2024 10:49 EST Heart Rate Monitored 59 bpm LOW 09/08/2024 10:49 EST Respiratory Rate 16 br/min Systolic Blood Pressure Non-Invasive 165 mmHg HI Diastolic Blood Pressure Non-Invasive 67 mmHg Mean Arterial Pressure (NBP) 96 mmHg 09/08/2024 10:35 EST Heart Rate Monitored 63 bpm Respiratory Rate 18 br/min 09/08/2024 10:20 EST Temperature Temporal Artery 36.0 DegC Heart Rate Monitored 65 bpm Respiratory Rate 18 br/min Systolic Blood Pressure Non-Invasive 158 mmHg HI Diastolic Blood Pressure Non-Invasive 78 mmHg Mean Arterial Pressure (NBP) 103 mmHg 09/08/2024 10:12 EST Systolic Blood Pressure Non-Invasive 145 mmHg mmHg Diastolic Blood Pressure Non-Invasive 61 mmHg mmHg 09/08/2024 10:10 EST Heart Rate Monitored 64 bpm bpm Respiratory Rate - Anes 4 br/min br/min 09/08/2024 10:09 EST Systolic Blood Pressure Non-Invasive 127 mmHg mmHg Diastolic Blood Pressure Non-Invasive 58 mmHg mmHg 09/08/2024 10:06 EST Systolic Blood Pressure Non-Invasive 117 mmHg mmHg Diastolic Blood Pressure Non-Invasive 53 mmHg mmHg 09/08/2024 10:05 EST Temperature (Route Not Specified) 35.96 DegC DegC Heart Rate Monitored 50 bpm bpm Respiratory Rate - Anes 9 br/min br/min 09/08/2024 10:03 EST Systolic Blood Pressure Non-Invasive 107 mmHg mmHg Diastolic Blood Pressure Non-Invasive 55 mmHg mmHg 09/08/2024 10:00 EST Temperature (Route Not Specified) 35.91 DegC DegC Heart Rate Monitored 49 bpm bpm Respiratory Rate - Anes 8 br/min br/min Systolic Blood Pressure Non-Invasive 100 mmHg mmHg Diastolic Blood Pressure Non-Invasive 61 mmHg mmHg 09/08/2024 9:57 EST Systolic Blood Pressure Non-Invasive 100 mmHg mmHg Diastolic Blood Pressure Non-Invasive 63 mmHg mmHg 09/08/2024 9:55 EST Temperature (Route Not Specified) 35.9 DegC DegC Heart Rate Monitored 50 bpm bpm Respiratory Rate - Anes 12 br/min br/min 09/08/2024 9:54 EST Systolic Blood Pressure Non-Invasive 100 mmHg mmHg Diastolic Blood Pressure Non-Invasive 61 mmHg mmHg 09/08/2024 9:51 EST Systolic Blood Pressure Non-Invasive 101 mmHg mmHg Diastolic Blood Pressure Non-Invasive 55 mmHg mmHg 09/08/2024 9:50 EST Temperature (Route Not Specified) 35.88 DegC DegC Heart Rate Monitored 60 bpm bpm Respiratory Rate - Anes 12 br/min br/min 09/08/2024 9:48 EST Systolic Blood Pressure Non-Invasive 99 mmHg mmHg Diastolic Blood Pressure Non-Invasive 53 mmHg mmHg 09/08/2024 9:45 EST Temperature (Route Not Specified) 35.87 DegC DegC Heart Rate Monitored 55 bpm bpm Respiratory Rate - Anes 12 br/min br/min Systolic Blood Pressure Non-Invasive 98 mmHg mmHg Diastolic Blood Pressure Non-Invasive 53 mmHg mmHg 09/08/2024 9:42 EST Systolic Blood Pressure Non-Invasive 102 mmHg mmHg Diastolic Blood Pressure Non-Invasive 51 mmHg mmHg 09/08/2024 9:40 EST Temperature (Route Not Specified) 35.86 DegC DegC Heart Rate Monitored 59 bpm bpm Respiratory Rate - Anes 12 br/min br/min 09/08/2024 9:39 EST Systolic Blood Pressure Non-Invasive 103 mmHg mmHg Diastolic Blood Pressure Non-Invasive 53 mmHg mmHg 09/08/2024 9:36 EST Systolic Blood Pressure Non-Invasive 109 mmHg mmHg Diastolic Blood Pressure Non-Invasive 51 mmHg mmHg 09/08/2024 9:35 EST Temperature (Route Not Specified) 35.87 DegC DegC Heart Rate Monitored 48 bpm bpm Respiratory Rate - Anes 12 br/min br/min 09/08/2024 9:33 EST Systolic Blood Pressure Non-Invasive 116 mmHg mmHg Diastolic Blood Pressure Non-Invasive 55 mmHg mmHg 09/08/2024 9:30 EST Temperature (Route Not Specified) 35.85 DegC DegC Heart Rate Monitored 47 bpm bpm Respiratory Rate - Anes 12 br/min br/min Systolic Blood Pressure Non-Invasive 90 mmHg mmHg Diastolic Blood Pressure Non-Invasive 52 mmHg mmHg 09/08/2024 9:27 EST Systolic Blood Pressure Non-Invasive 96 mmHg mmHg Diastolic Blood Pressure Non-Invasive 57 mmHg mmHg 09/08/2024 9:25 EST Temperature (Route Not Specified) 35.85 DegC DegC Heart Rate Monitored 67 bpm bpm Respiratory Rate - Anes 12 br/min br/min 09/08/2024 9:24 EST Systolic Blood Pressure Non-Invasive 104 mmHg mmHg Diastolic Blood Pressure Non-Invasive 51 mmHg mmHg 09/08/2024 9:21 EST Systolic Blood Pressure Non-Invasive 101 mmHg mmHg Diastolic Blood Pressure Non-Invasive 53 mmHg mmHg 09/08/2024 9:20 EST Temperature (Route Not Specified) 35.85 DegC DegC Heart Rate Monitored 56 bpm bpm Respiratory Rate - Anes 12 br/min br/min 09/08/2024 9:18 EST Systolic Blood Pressure Non-Invasive 103 mmHg mmHg Diastolic Blood Pressure Non-Invasive 49 mmHg mmHg 09/08/2024 9:15 EST Temperature (Route Not Specified) 35.86 DegC DegC Heart Rate Monitored 49 bpm bpm Respiratory Rate - Anes 12 br/min br/min Systolic Blood Pressure Non-Invasive 110 mmHg mmHg Diastolic Blood Pressure Non-Invasive 52 mmHg mmHg 09/08/2024 9:12 EST Systolic Blood Pressure Non-Invasive 111 mmHg mmHg Diastolic Blood Pressure Non-Invasive 67 mmHg mmHg 09/08/2024 9:10 EST Temperature (Route Not Specified) 35.86 DegC DegC Heart Rate Monitored 47 bpm bpm Respiratory Rate - Anes 10 br/min br/min 09/08/2024 9:09 EST Systolic Blood Pressure Non-Invasive 67 mmHg mmHg Diastolic Blood Pressure Non-Invasive 47 mmHg mmHg 09/08/2024 9:06 EST Systolic Blood Pressure Non-Invasive 84 mmHg mmHg Diastolic Blood Pressure Non-Invasive 56 mmHg mmHg 09/08/2024 9:05 EST Temperature (Route Not Specified) 35.86 DegC DegC Heart Rate Monitored 52 bpm bpm Respiratory Rate - Anes 10 br/min br/min 09/08/2024 9:03 EST Systolic Blood Pressure Non-Invasive 113 mmHg mmHg Diastolic Blood Pressure Non-Invasive 60 mmHg mmHg 09/08/2024 9:00 EST Temperature (Route Not Specified) 35.85 DegC DegC Heart Rate Monitored 54 bpm bpm Respiratory Rate - Anes 11 br/min br/min Systolic Blood Pressure Non-Invasive 114 mmHg mmHg Diastolic Blood Pressure Non-Invasive 60 mmHg mmHg 09/08/2024 8:57 EST Systolic Blood Pressure Non-Invasive 161 mmHg mmHg Diastolic Blood Pressure Non-Invasive 77 mmHg mmHg 09/08/2024 8:55 EST Temperature (Route Not Specified) 36.01 DegC DegC Heart Rate Monitored 58 bpm bpm Respiratory Rate - Anes 12 br/min br/min 09/08/2024 8:54 EST Systolic Blood Pressure Non-Invasive 121 mmHg mmHg Diastolic Blood Pressure Non-Invasive 88 mmHg mmHg 09/08/2024 8:51 EST Systolic Blood Pressure Non-Invasive 104 mmHg mmHg Diastolic Blood Pressure Non-Invasive 71 mmHg mmHg 09/08/2024 8:50 EST Heart Rate Monitored 58 bpm bpm Respiratory Rate - Anes 11 br/min br/min (Modified) 09/08/2024 8:48 EST Systolic Blood Pressure Non-Invasive 192 mmHg mmHg Diastolic Blood Pressure Non-Invasive 92 mmHg mmHg 09/08/2024 8:45 EST Respiratory Rate - Anes 10 br/min br/min (Modified) 09/08/2024 7:10 EST Temperature Temporal Artery 36.1 DegC Peripheral Pulse Rate 58 bpm LOW Respiratory Rate 18 br/min Systolic Blood Pressure Non-Invasive 158 mmHg HI Diastolic Blood Pressure Non-Invasive 66 mmHg . Mental status: at preoperative baseline. Respiratory function: respirations are non-labored, Stable. Respiratory support: none. CV function: Stable. Cardiovascular support: none. Pain: Satisfactory. Nausea status: Satisfactory. Postoperative hydration status: within normal limits. Notes: Patient is sufficiently recovered from anesthesia to participate in the evaluation. No follow-up care needed. No complications post-anesthesia.. Digitally Signed by NISH MARTINEZ MD on 09/08/2024 11:32 AM [id number] History and physical note Date of Service 09/08/24 History and Physical Update I have examined the patient; reviewed the History and Physical and there are no changes to the History and Physical unless noted below. Digitally Signed by QIAN FAY MD on 09/08/2024 08:14 AM [id number] Anesthesiology Consult note Patient: CJ GONZALEZ Age: 79 years Sex: Male : 1945 Associated Diagnoses: None Author: CATRACHITO ROBLEDO DO Preoperative Information NPO greater than 8 hours food and greater than 2 hours liquid Anesthesia history Patient's history: negative. Health Status Allergies: Allergic Reactions (Selected) Severity Not Documented Contrast media (iodine-based)- Seizure., Allergies (1) ActiveSeverityReaction contrast media (iodine-based)Seizure Current medications: (Selected) Inpatient Medications Ordered ceFAZolin: 2 gram(s), 20 mL, 240 mL/hr, IV Push (INT), PREOP pharm Prescriptions Prescribed amiodarone 200 mg oral tablet: 200 mg, 1 tab(s), Oral, qDay, 90 tab(s), 3 Refill(s) pravastatin 40 mg oral tablet: 40 mg, 1 tab(s), Oral, qHS, 90 tab(s), 3 Refill(s) warfarin 2 mg oral tablet: 2 mg, 1 tab(s), Oral, Wed///Wed/Sat, 90 tab(s), 3 Refill(s) Documented Medications Documented aspirin 81 mg oral delayed release tablet: 81 mg, 1 tab(s), Oral, Every other day, 30 tab(s), 0 Refill(s) warfarin 2 mg oral tablet: 1 mg, 0.5 tab(s), Oral, Wednesday & Wednesday, TAKE 1 TABLET BY MOUTH EVERY DAY, Medications (1) Active Scheduled: (1) ceFAZolin syringe 2 gram(s) 20 mL, IV Push (INT), PREOP pharm Continuous: (0) PRN: (0) Problem list: Medical AAA (abdominal aortic aneurysm) / SNOMED CT 562896012 / Confirmed Abnormal lung sounds / SNOMED CT 7275083169 / Confirmed Aortic atherosclerosis / SNOMED CT 203898782 / Confirmed Atrial flutter with rapid ventricular response / SNOMED CT 5018175 / Confirmed ARTERIOSCLEROTIC HEART DISEASE / SNOMED CT 70768570 / Confirmed Anticoagulated / SNOMED CT 952423869 / Confirmed On amiodarone therapy / SNOMED CT 768484540 / Confirmed Shortness of breath on exertion / SNOMED CT 103797351 / Confirmed Tobacco use / SNOMED CT 6031835846 / Confirmed Hearing loss, left / SNOMED CT 3647329124 / Confirmed S/P CABG (CORONARY ARTERY BYPASS GRAFT) / SNOMED CT 3189762045 / Confirmed Hypercoagulability due to atrial fibrillation / SNOMED CT 616989055 / Confirmed Hypertensive heart disease with CHF / SNOMED CT 0749496 / Confirmed LVH (left ventricular hypertrophy) due to hypertensive disease / SNOMED CT 9447744048 / Confirmed Balance problem / SNOMED CT 0735709579 / Confirmed LVH (left ventricular hypertrophy) / SNOMED CT 73830599 / Confirmed Immunization refused / SNOMED CT 2889410027 / Confirmed Mitral regurgitation / SNOMED CT 65671784 / Confirmed HYPERLIPEMIA, MIXED / SNOMED CT 501818206 / Confirmed Meniere disease / SNOMED CT 309646708 / Confirmed Near syncope / SNOMED CT 5165452464 / Confirmed KWABENA (OBSTRUCTIVE SLEEP APNEA) / SNOMED CT 482154891 / Confirmed Overweight / SNOMED CT 338204156 / Confirmed AF (paroxysmal atrial fibrillation) / SNOMED CT 739777378 / Confirmed Screening for prostate cancer / SNOMED CT 079905642 / Confirmed Screening for cardiovascular condition / SNOMED CT 063821108 / Confirmed Medicare annual wellness visit, subsequent / SNOMED CT 216529595 / Confirmed Screen for colon cancer / SNOMED CT 230460034 / Confirmed Screening for lung cancer / SNOMED CT 179413061 / Confirmed Screening for osteoporosis / SNOMED CT 625150759 / Confirmed Peripheral vascular disease / SNOMED CT 2265081844 / Confirmed Elevated TSH / SNOMED CT 2091207927 / Confirmed Right inguinal hernia / SNOMED CT 894763829 / Confirmed Screening due / SNOMED CT 305254489 / Confirmed Tinnitus / SNOMED CT 152803050 / Confirmed Umbilical hernia / SNOMED CT 4078942948 / Confirmed Vertigo / SNOMED CT 8358903401 / Confirmed Resolved: Acute sinusitis / SNOMED CT 50162476 Resolved: Appendicitis / SNOMED CT [id number] Resolved: WEAKNESS / SNOMED CT 78104403 Resolved: Bacterial sinusitis / SNOMED CT 0580318875 Resolved: Pacemaker / SNOMED CT 6009804830 Resolved: Diastolic CHF, chronic / SNOMED CT 1908598191 Resolved: Impacted cerumen, bilateral / SNOMED CT 62092674 Resolved: Cerumen impaction / SNOMED CT 62936571 Resolved: Depression screen / SNOMED CT 205654245 Resolved: Hospital discharge follow-up / SNOMED CT 8156198122 Canceled: Weakness / SNOMED CT 11863800 Canceled: At low risk for fall / SNOMED CT 5247330358 Canceled: Atrial flutter with rapid ventricular response / SNOMED CT 3774363 Canceled: 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 / SNOMED CT 9002778938 Canceled: HYPERTENSION, ESSENTIAL / SNOMED CT 78027049 Canceled: Hearing loss on left / SNOMED CT 4333581967 Canceled: S/P CABG x 5 / SNOMED CT 5489070126 Canceled: HTN (hypertension) / SNOMED CT 0841524932 Canceled: Heart disease, hypertensive / SNOMED CT 600961476 Canceled: Hypertensive heart disease with CHF / SNOMED CT 3991365 Canceled: Lightheadedness / SNOMED CT 1137890478 Canceled: Elevated CO2 level / SNOMED CT 4769580217 Canceled: Elevated CO2 level / SNOMED CT 2746216573 Canceled: Hyperlipemia, mixed / SNOMED CT 942288868 Canceled: KWABENA (obstructive sleep apnea) / SNOMED CT 481815115 Canceled: BMI 26.0-26.9,adult / SNOMED CT 5776400698 Canceled: BMI 27.0-27.9,adult / SNOMED CT 0272027574 Canceled: TSH elevation / SNOMED CT 1343030115 Canceled: Need for hepatitis C screening test / SNOMED CT 703787975, Active Problems (61) AAA (abdominal aortic aneurysm) Abnormal lung sounds AF (paroxysmal atrial fibrillation) Allergic reaction to contrast dye Anticoagulated Anxiety Aortic atherosclerosis ARTERIOSCLEROTIC HEART DISEASE Atrial fibrillation Atrial flutter with rapid ventricular response Back pain Balance problem BMI 27.0-27.9,adult Bruises easily Chipped tooth COPD - Chronic obstructive pulmonary disease Cough Degenerative disc disease Dizziness Elevated blood pressure reading Elevated TSH Emphysema of lung Fatigue Glasses Headache Hearing loss, left Hypercholesterolemia Hypercoagulability due to atrial fibrillation HYPERLIPEMIA, MIXED Hypertensive heart disease with CHF Immunization refused Localized swelling, mass and lump, neck LVH (left ventricular hypertrophy) LVH (left ventricular hypertrophy) due to hypertensive disease Medicare annual wellness visit, subsequent Meniere disease Mitral regurgitation Near syncope Nodule of right lung On amiodarone therapy KWABENA (OBSTRUCTIVE SLEEP APNEA) Overweight Peripheral vascular disease Right inguinal hernia S/P CABG (CORONARY ARTERY BYPASS GRAFT) Screen for colon cancer Screening due Screening for cardiovascular condition Screening for lung cancer Screening for osteoporosis Screening for prostate cancer Seizure Shortness of breath on exertion Tinnitus Tobacco use Tobacco use Umbilical hernia Vertigo Wears partial dentures Histories Past Medical History: Active Screening due (783222427) Resolved Appendicitis ([id number]): Resolved. Acute sinusitis (85610788): Resolved. WEAKNESS (01281103): Resolved. Comments: - Patient woke up today just feeling weak and tired. I question whether he is getting a virus. EKG isstable. I have not found any acute cardiac conditions on exam today. Impacted cerumen, bilateral (50611947): Resolved. Pacemaker (9971742508): Resolved. Comments: 08/25/2024 EST 14:16 Josefina Davis RN PATIENT AND FAMILY DENY PATIENT HAS PACEMAKER Depression screen (517478005): Resolved. Bacterial sinusitis (9024344073): Resolved. Hospital discharge follow-up (7367682309): Resolved. Diastolic CHF, chronic (4995680754): Resolved. Comments: 08/25/2024 EST 14:18 Josefina Davis RN PATIENT AND FAMILY DENY. NOT NOTED ON 02/2024 CARDIAC NOTE Cerumen impaction (29492281): Resolved. Family History: Cancer Sister Sister Sister Diabetes mellitus Mother Cancer Father Sister Procedure history: Appendectomy (356515709). Coronary artery bypass graft (831159843). Comments: 08/25/2024 13:50 Josefina Davis RN 2016 12/04/2020 18:09 DEMARCUS Pablo x 5 CE - Cataract extraction ([id number]). Comments: 08/25/2024 13:50 Josefina Davis RN BILATERAL Extraction of permanent tooth (33726703). Colonoscopy (683616823). Social History: Social & Psychosocial Habits Alcohol 09/08/2024 Use: DENIES Substance Abuse 09/08/2024 Use: DENIES Tobacco 09/08/2024 Tobacco Use: 5-9 cigarettes (between 1 Type: Cigarettes Tobacco use per day: 10 Started at age: 8 Years Comment: smokes 1/2 PPD x 70 yrs - 08/10/2024 14:49 - Cici Myles RN Home/Environment 09/08/2024 Living situation: Home/Independent Safe place to go: Yes Domestic Concerns Denies Nutrition/Health 09/08/2024 Caffeine intake amount: Pop and coffee daily Physical Examination Vital Signs (last 24 hrs) Last Charted Temp Rfywyncj07.1 DegC (SEP 08 07:10) SBPH 158 mmHg (SEP 08 07:10) DBP66 mmHg (SEP 08 07:10) General: Alert and oriented. Airway: Mallampati classification: II (soft palate, fauces, uvula visible). Dentition Evaluation: Intact. Respiratory: Lungs are clear to auscultation, Respirations are non-labored. Cardiovascular: Normal rate, Regular rhythm. Heart Sounds: Normal. Neurologic: Alert, Oriented. Review / Management Results review: Labs (Last four charted values) Plt L 144(SEP 08) PT 12.1(SEP 08) INR 1.0(SEP 08) PTT 34.4(SEP 08) . Documentation reviewed: Current records. Assessment and Plan [place] [employer] (ASA) physical status classification: Class III. Anesthetic Preoperative Plan Premedication: intravenous. Anesthetic technique: General. Induction: intravenously. Maintenance airway: Oral endotracheal tube. Special Monitoring. Postoperative pain management: Per surgeon. Informed consent: signed by patient. Notes: Patient will accept blood and blood products ASA 3 or greater due to the following comorbidities:CAD s/p CABG x5, AAA, A fib, anticoagulated, pacemaker. Digitally Signed by CATRACHITO ROBLEDO DO on 09/08/2024 07:50 AM [id number]* Exam Date Time Procedure Performing Provider Status 08/24/24 10:07 AM Echocardiogram, Adult - CV GILDARDO GALLAGHER MD; Auth (Verified) [facility]06-18-2024 Note* Exam Date Time Procedure Performing Provider Status 02/15/24 1:58 PM VL Carotid US/Dopple r Complete - CV Auth (Verified) [facility] 05-30-2024 Note ORIGINAL EXAMINATION: TWO XRAY VIEWS OF THE CHEST 01/27/2024 3:23 pm COMPARISON: Chest x-ray on 09/08/2023 HISTORY: ORDERING SYSTEM PROVIDED HISTORY: Reason for Exam: rhonchi, tobacco use, rule out pneumonia FINDINGS: Patient has had sternotomy. The heart size is normal. The lungs are hyperexpanded. There is no lung infiltrate or edema. No pneumothorax or pleural fluid is present. There is mild thoracic spondylosis with no fracture or subluxation. No acute skeletal abnormality is present. IMPRESSION: 1. Chronic obstructive pulmonary disease. 2. No acute findings. Interpreted by: Yariel Negron MD Preliminary Report By: Yariel Negron MD Electronically signed By Yariel Negron MD Dictated Date: 01/28/2024 12:23:58 AM Prelim Date: 01/28/2024 12:25:07 AM Sign Date: 01/28/2024 12:25:07 AM [facility]ing [facility] Future Appointments Appointment Date:12/23/2021 09:30:00 AM Scheduled Provider:MARLIN LANCASTER DO Location:[facility] Appointment Type:PC OV Appointment Date:03/10/2022 09:00:00 AM Scheduled Provider:REILLY CHILDS Location:[facility] Appointment Type:CV OV [facility] Evaluation + Plan note Future Appointments Appointment Date:03/10/2022 09:00:00 AM Scheduled Provider:REILLY CHILDS Location:[facility] Appointment Type:CV OV Appointment Date:06/09/2022 09:30:00 AM Scheduled Provider:MARLIN LANCASTER DO Location:[facility] Appointment Type:PC OV [facility] Evaluation + Plan note Future Appointments Appointment Date:05/20/2022 11:00:00 AM Scheduled Provider: Location:[facility] Appointment Type:CV Procedure - [facility]OH Echo Appointment Date:06/09/2022 09:30:00 AM Scheduled Provider:MARLIN LANCASTER DO Location:[facility] Appointment Type:PC Wellness Medicare Appointment Date:06/11/2022 01:00:00 PM Scheduled Provider:REILLY CHILDS Location:[facility] Appointment Type:CV OV Appointment Date:09/22/2022 09:30:00 AM Scheduled Provider:REILLY CHILDS Location:[facility] Appointment Type:CV OV [facility] evaluation + Plan note Future Appointments Appointment Date:06/09/2022 09:30:00 AM Scheduled Provider:MARLIN LANCASTER DO Location:[facility] Appointment Type:PC Wellness Medicare Appointment Date:06/11/2022 01:00:00 PM Scheduled Provider:REILLY CHILDS Location:[facility] Appointment Type:CV OV Appointment Date:09/22/2022 09:30:00 AM Scheduled Provider:REILLY CHILDS Location:[facility] Appointment Type:CV OV [facility] Evaluation + Plan note Future Appointments Appointment Date:09/22/2022 09:30:00 AM Scheduled Provider:REILLY CHILDS Location:[facility] Appointment Type:CV OV Future Scheduled Tests Laboratory* Basic Metabolic Panel 06/09/22 * Thyroid Stimulating Hormone 06/09/22 * Free T4 06/09/22 * Free T3 06/09/22 [facility] evaluation + Plan note Future Appointments Appointment Date:09/22/2022 09:30:00 AM Scheduled Provider:REILLY CHILDS Location:[facility] Appointment Type:CV OV Appointment Date:02/08/2023 11:00:00 AM Scheduled Provider:MARLIN LANCASTER DO Location:[facility] Appointment Type:PC OV Future Scheduled Tests Laboratory* Basic Metabolic Panel 06/09/22 * Thyroid Stimulating Hormone 06/09/22 * Free T4 06/09/22 * Free T3 06/09/22 Radiology* XR Chest 2 Views (PA & Lateral) 08/10/22 * US Aorta 07/11/25 [facility] Evaluation + Plan note Future Appointments Appointment Date:02/24/2023 09:00:00 AM Scheduled Provider: Location:[facility] Appointment Type:ACC POC Established Patient Appointment Date:02/24/2023 09:30:00 AM Scheduled Provider:REILLY CHILDS Location:[facility] Appointment Type:CV OV Appointment Date:02/24/2023 10:15:00 AM Scheduled Provider:REILLY CHILDS Location:[facility] Appointment Type:Online OV CVC Appointment Date:06/15/2023 10:00:00 AM Scheduled Provider:MARLIN LANCASTER DO Location:[facility] Appointment Type:PC Wellness Medicare Future Scheduled Tests Laboratory* Basic Metabolic Panel 06/09/22 * Thyroid Stimulating Hormone 06/09/22 * Free T4 06/09/22 * Free T3 06/09/22 * Lipid Profile 01/26/23 Radiology* XR Chest 2 Views (PA & Lateral) 08/10/22 * US Aorta 07/11/25 [facility] Evaluation + Plan note Future Appointments Appointment Date:10/05/2023 09:00:00 AM Scheduled Provider: Location:[facility] Appointment Type:ACC POC Established Patient Appointment Date:12/14/2023 10:00:00 AM Scheduled Provider:MARLIN LANCASTER DO Location:[facility] Appointment Type:PC OV Appointment Date:03/09/2024 09:00:00 AM Scheduled Provider:REILLY CHILDS Location:[facility] Appointment Type:CV OV Future Scheduled Tests Laboratory* Thyroid Stimulating Hormone 06/15/23 * Free T4 06/15/23 * A1C Hemoglobin 06/15/23 * Complete Blood Count 06/15/23 * Lipid Profile 01/26/23 * Lipid Profile 06/15/23 * Albumin/Creatinine Ratio, Random Urine 06/15/23 * Complete Metabolic Panel 06/15/23 Radiology* US Aorta 07/11/25 [facility] Evaluation + Plan note Future Appointments Appointment Date:02/15/2024 10:00:00 AM Scheduled Provider: Location:[facility] Appointment Type:ACC POC Established Patient Appointment Date:02/22/2024 02:30:00 PM Scheduled Provider:DAMARIS FOSTER DO Location:[facility] Appointment Type:PC OV Appointment Date:03/09/2024 09:00:00 AM Scheduled Provider:REILLY CHILDS Location:[facility] Appointment Type:CV OV Appointment Date:06/27/2024 10:30:00 AM Scheduled Provider:MARLIN LANCASTER DO Location:[facility] Appointment Type:PC Wellness Medicare Future Scheduled Tests Laboratory* Prostate Specific Antigen 12/14/23 * Thyroid Stimulating Hormone 06/15/23 * Free T4 06/15/23 * A1C Hemoglobin 06/15/23 * A1C Hemoglobin 12/14/23 * Complete Blood Count 06/15/23 * Complete Blood Count 12/14/23 * Lipid Profile 06/15/23 * Lipid Profile 12/14/23 * Albumin/Creatinine Ratio, Random Urine 06/15/23 * Albumin/Creatinine Ratio, Random Urine 12/14/23 * Complete Metabolic Panel 06/15/23 * Complete Metabolic Panel 12/14/23 Radiology* CT Head or Brain w/o Contrast 01/27/24 * US Aorta 07/11/25 [facility] Evaluation + Plan note Future Appointments Appointment Date:02/22/2024 02:30:00 PM Scheduled Provider:DAMARIS FOSTER DO Location:[facility] Appointment Type:PC OV Appointment Date:03/09/2024 09:00:00 AM Scheduled Provider:REILLY CHILDS Location:[facility] Appointment Type:CV OV Appointment Date:06/27/2024 10:30:00 AM Scheduled Provider:MARLIN LANCASTER DO Location:[facility] Appointment Type:PC Wellness Medicare Future Scheduled Tests Laboratory* Prostate Specific Antigen 12/14/23 * Thyroid Stimulating Hormone 06/15/23 * Free T4 06/15/23 * A1C Hemoglobin 06/15/23 * A1C Hemoglobin 12/14/23 * Complete Blood Count 06/15/23 * Complete Blood Count 12/14/23 * Lipid Profile 06/15/23 * Lipid Profile 12/14/23 * Albumin/Creatinine Ratio, Random Urine 06/15/23 * Albumin/Creatinine Ratio, Random Urine 12/14/23 * Complete Metabolic Panel 06/15/23 * Complete Metabolic Panel 12/14/23 Radiology* US Aorta 07/11/25 [facility] Evaluation + Plan note Future Appointments Appointment Date:03/21/2024 02:00:00 PM Scheduled Provider: Location:[facility] Appointment Type:PT Treatment [facility] Appointment Date:03/28/2024 09:00:00 AM Scheduled Provider: Location:[facility] Appointment Type:ACC POC Established Patient Appointment Date:03/28/2024 02:00:00 PM Scheduled Provider: Location:[facility] Appointment Type:PT [facility] Appointment Date:03/29/2024 11:00:00 AM Scheduled Provider:MARLIN LANCASTER DO Location:[facility] Appointment Type:PC OV Appointment Date:04/04/2024 02:00:00 PM Scheduled Provider: Location:[facility] Appointment Type:PT Treatment - [place] Appointment Date:06/27/2024 10:30:00 AM Scheduled Provider:MARLIN LANCASTRE DO Location:[facility] Appointment Type:PC Wellness Medicare Appointment Date:09/19/2024 09:00:00 AM Scheduled Provider:REILLY CHILDS Location:[facility] Appointment Type:CV OV Future Scheduled Tests Laboratory* Prostate Specific Antigen 12/14/23 * Thyroid Stimulating Hormone 06/15/23 * Free T4 06/15/23 * A1C Hemoglobin 06/15/23 * A1C Hemoglobin 12/14/23 * Complete Blood Count 06/15/23 * Complete Blood Count 12/14/23 * Lipid Profile 06/15/23 * Lipid Profile 12/14/23 * Albumin/Creatinine Ratio, Random Urine 06/15/23 * Albumin/Creatinine Ratio, Random Urine 12/14/23 * Complete Metabolic Panel 06/15/23 * Complete Metabolic Panel 12/14/23 Radiology* US Aorta 07/11/25 * US Aorta 03/09/24 [facility] Evaluation + Plan note Future Appointments Appointment Date:03/28/2024 09:00:00 AM Scheduled Provider: Location:[facility] Appointment Type:ACC POC Established Patient Appointment Date:03/28/2024 02:00:00 PM Scheduled Provider: [facility]:03/29/[facility]24 11:00:00 AM Scheduled Provider:MARLIN LANCASTER DO Location:[facility] Appointment Type:PC OV Appointment Date:04/04/2024 02:00:00 PM Scheduled Provider: [facility]:06/27/2024 10:30:00 AM Scheduled Provider:MARLIN LANCASTER DO Location:[facility] Appointment Type:PC Wellness Medicare Appointment Date:09/19/2024 09:00:00 AM Scheduled Provider:REILLY CHILDS Location:[facility] Appointment Type:CV OV Future Scheduled Tests Laboratory* Prostate Specific Antigen 12/14/23 * Thyroid Stimulating Hormone 06/15/23 * Free T4 06/15/23 * A1C Hemoglobin 06/15/23 * A1C Hemoglobin 12/14/23 * Complete Blood Count 06/15/23 * Complete Blood Count 12/14/23 * Lipid Profile 06/15/23 * Lipid Profile 12/14/23 * Albumin/Creatinine Ratio, Random Urine 06/15/23 * Albumin/Creatinine Ratio, Random Urine 12/14/23 * Complete Metabolic Panel 06/15/23 * Complete Metabolic Panel 12/14/23 Radiology* US Aorta 07/11/25 * US Aorta 03/09/24 [facility] Evaluation + Plan note Future Appointments Appointment Date:06/27/2024 10:30:00 AM Scheduled Provider:MARLIN LANCASTER DO Location:[facility] Appointment Type:PC Wellness Medicare Appointment Date:07/18/2024 09:00:00 AM Scheduled Provider: Location:[facility] Appointment Type:ACC POC Established Patient Appointment Date:09/19/2024 09:00:00 AM Scheduled Provider:REILLY CHILDS Location:[facility] Appointment Type:CV OV Future Scheduled Tests Radiology* US Aorta 07/11/25 * US Aorta 03/09/24 [facility] Evaluation + Plan note Future Appointments Appointment Date:07/18/2024 09:00:00 AM Scheduled Provider: Location:[facility] Appointment Type:ACC POC Established Patient Appointment Date:09/19/2024 09:00:00 AM Scheduled Provider:REILLY CHILDS Location:[facility] Appointment Type:CV OV Appointment Date:12/26/2024 10:00:00 AM Scheduled Provider:MARLIN LANCASTER DO Location:[facility] Appointment Type:PC OV Future Scheduled Tests Radiology* US Aorta 07/11/25 * US Aorta 03/09/24 [facility] Evaluation + Plan note Future Appointments Appointment Date:09/12/2024 09:00:00 AM Scheduled Provider: Location:[facility] Appointment Type:ACC POC Established Patient Appointment Date:09/19/2024 09:00:00 AM Scheduled Provider:REILLY CHILDS Location:[facility] Appointment Type:CV OV Appointment Date:12/26/2024 10:00:00 AM Scheduled Provider:MARLIN LANCASTER DO Location:[facility] Appointment Type:PC OV Future Scheduled Tests Radiology* US Aorta 07/11/25 * US Aorta 03/09/24 [facility] Evaluation + Plan note Future Appointments Appointment Date:08/09/2024 02:30:00 PM Scheduled Provider:LINK PERRY MD Location[facility] Appointment Type:CTS [employer]ER Outpatient Consult Appointment Date:09/12/2024 09:00:00 AM Scheduled Provider: Location:[facility] Appointment Type:ACC POC Established Patient Appointment Date:09/19/2024 09:00:00 AM Scheduled Provider:REILLY CHILDS Location:[facility] Appointment Type:CV OV Appointment Date:09/19/2024 12:00:00 PM Scheduled Provider:MARLIN LANCASTER DO Location:[facility] Appointment Type:PC OV Appointment Date:12/26/2024 10:00:00 AM Scheduled Provider:MARLIN LANCASTER DO Location:[facility] Appointment Type:PC OV Future Scheduled Tests Radiology* IR Biopsy Lung 07/31/24 * US Aorta 07/11/25 * US Aorta 03/09/24 * IR Lymph Node Biopsy 08/01/24 [facility] Evaluation + Plan note Future Appointments Appointment Date:09/12/2024 09:00:00 AM Scheduled Provider: Location:[facility] Appointment Type:ACC POC Established Patient Appointment Date:09/19/2024 09:00:00 AM Scheduled Provider:REILLY CHILDS Location:[facility] Appointment Type:CV OV Appointment Date:09/19/2024 12:00:00 PM Scheduled Provider:MARLIN LANCASTER DO Location:[facility] Appointment Type:PC OV Appointment Date:12/26/2024 10:00:00 AM Scheduled Provider:MARLIN LANCASTER DO Location:[facility] Appointment Type:PC OV Future Scheduled Tests Radiology* US Aorta 07/11/25 * US Aorta 03/09/24 [facility] Evaluation + Plan note Future Appointments Appointment Date:09/22/2024 09:45:00 AM Scheduled Provider: Location:[facility] Appointment Type:ACC POC Established Patient Appointment Date:12/26/2024 10:00:00 AM Scheduled Provider:MARLIN LANCASTER DO Location:[facility] Appointment Type:PC OV Appointment Date:03/20/2025 09:00:00 AM Scheduled Provider:REILLY CHILDS Location:[facility] Appointment Type:CV OV Future Scheduled Tests Radiology* US Aorta 07/02/25 * US Aorta 07/11/25 * US Aorta 03/09/24 [facility] Evaluation + Plan note Future Appointments Appointment Date:11/03/2024 09:30:00 AM Scheduled Provider: Location:[facility] Appointment Type:ACC POC Established Patient Appointment Date:12/26/2024 10:00:00 AM Scheduled Provider:MARLIN LANCASTER DO Location:[facility] Appointment Type:PC OV Appointment Date:03/20/2025 09:00:00 AM Scheduled Provider:REILLY CHILDS Location:[facility] Appointment Type:CV OV Future Scheduled Tests Radiology* US Aorta 07/02/25 * US Aorta 07/11/25 * US Aorta 03/09/24 [facility] Evaluation + Plan note Future Appointments Appointment Date:04/24/2025 09:00:00 AM Scheduled Provider: Location:[facility] Appointment Type:ACC POC Established Patient Appointment Date:07/10/2025 10:00:00 AM Scheduled Provider:MARLIN LANCASTER DO Location:[facility] Appointment Type:PC Wellness Medicare Appointment Date:09/20/2025 09:15:00 AM Scheduled Provider:REILLY CHILDS Location:[facility] Appointment Type:CV OV Future Scheduled Tests Laboratory* Albumin/Creatinine Ratio, Random Urine 12/26/24 Radiology* US Aorta 07/02/25 * US Aorta 07/11/25 [facility] Evaluation note* Diagnosis 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 of head, face, and neck [facility] 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 of head, face, and neck documented in this encounter [facility] course Narrative No data available for this section [facility] Discharge instructions No data available for this section [facility] Note* GEGE CHI MD: SIGN, VERIFY Event Display: VL Carotid US/Doppler Complete AOH [facility] Progress note No data available for this section [facility] Reason for referral (narrative)No reason for referral information availableGr[facility] Work Phone: Summary Purpose Family History Relationship Condition Age at Onset Recorded Date/T asiya sister Malignant melanoma Unknown sister Malignant neoplasm of breast Unknown sister Malignant neoplasm Unknown father Malignant neoplasm Unknown sister Parkinson's disease Unknown mother Diabetes mellitus Unknown No Family History Records Found Advance Directives No Advanced Directives Records FoundNo Advanced Directives Records FoundNo Advanced Directives Records FoundNo Advanced Directives Records FoundNo Advanced Directives Records Found Chief Complaint and Reason for Visit Chief Complaint Admit Date Amb Documentation October 31, 2024 12:4 7pm Amb Documentation November 02, 2024 1:00 pm Amb Documentation November 06, 2024 12: 57pm OTV November 08, 2024 11: 30am Amb Documentation November 10, 2024 12: 26pm Amb Documentation November 10, 2024 1:1 5pm 1 MONTH F/U POST RT December 19, 2024 11: 25am PS MODIFIER February 06, 2025 8:30 am 2 MONTH LUNG, REVIEW PET February 12, 2025 10:21am Reason for Visit Admit Date Primary adenocarcinoma of right lung Mar 2024 11:30am Primary adenocarcinoma of right lung Apr 2024 11:25am 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 December 19, 2024 11:25am Additional Source Comments Care Team (unrecognized sect ion and content) [employer] Relationship Specialty Start Date End Date Marlin Lancaster IV, DO [address] [place] [id number] PCP - General Family Medicine 10/06/24 Bria Liu DO [address] [facility] [address] [place] [address] Radiation Oncology 10/06/24 Reilly Childs CNP [address] [place] [address] Family Medicine 10/06/24 [employer] Bearer Relationship Specialty Start Date End Date Marlin Lancaster IV, DO [address] [place] [address] PCP - General Family Medicine 10/06/24 Bria Liu, [address] [facility] [address] [place] [address] Radiation Oncology 10/06/24 Reilly Childs CNP [address] [place] [address] Family Medicine 10/06/24 [employer] Bearer Relationship Specialty Start Date End Date Marlin Lancaster IV, DO [address] [place] [address] PCP - General Family Medicine 10/06/24 rBia Liu DO [address] [facility] [address] [place] [address] Radiation Oncology 10/06/24 Reilly Childs CNP [address] [place] [id number] Family Medicine 10/06/24 Team Status: Active Member Role Status Dates Dr. Marlin Lancaster DO Primary Care Provider Active Team Status: Active Member Role Status Dates Dr. Marlin Lancaster DO Primary Care Provider Active Start: October 17, 2024 Dr. Bria Liu DO Attending Provider Active Start: October 17, 2024 Dr. Bria Liu DO Referring Provider Active Start: October 17, 2024 Team Status: Active Member Role Status Dates Dr. Marlin Lancaster DO Primary Care Provider Active Start: October 31, 2024 Dr. Bria Liu DO Attending Provider Active Start: October 31, 2024 Dr. Bria Liu DO Referring Provider Active Start: October 31, 2024 Team Status: Active Member Role Status Dates Dr. Marlin Lancaster DO Primary Care Provider Active Start: November 02, 2024 Dr. Bria Liu DO Attending Provider Active Start: November 02, 2024 Team Status: Active Member Role Status Dates Dr. Marlin Lancaster DO Primary Care Provider Active Start: November 06, 2024 Dr. Bria Liu DO Attending Provider Active Start: November 06, 2024 Team Status: Inactive Member Role Status Dates Dr. Marlin Lancaster DO Primary Care Provider Active Start: November 08, 2024 End: November 08, 2024 Dr. Marlin Lancaster DO Referring Provider Active Start: November 08, 2024 End: November 08, 2024 Dr. Bria Liu DO Attending Provider Active Start: November 08, 2024 End: November 08, 2024 Team Status: Active Member Role Status Dates Dr. Marlin Lancaster DO Primary Care Provider Active Start: November 10, 2024 Dr. Bria Liu DO Attending Provider Active Start: November 10, 2024 Dr. Bria Liu DO Referring Provider Active Start: November 10, 2024 Team Status: Active Member Role Status Dates Dr. Marlin Lancaster DO Primary Care Provider Active Start: November 10, 2024 Dr. Bria Liu DO Attending Provider Active Start: November 10, 2024 Team Status: Inactive Member Role Status Dates Dr. Marlin Lancaster DO Primary Care Provider Active Start: December 19, 2024 End: December 19, 2024 Dr. Marlin Lancaster DO Referring Provider Active Start: December 19, 2024 End: December 19, 2024 Dr. Bria Liu DO Attending Provider Active Start: December 19, 2024 End: December 19, 2024 Team Status: Active Member Role Status Dates Dr. Marlin Lancaster DO Primary Care Provider Active Start: February 06, 2025 Dr. Bria Liu DO Attending Provider Active Start: February 06, 2025 Dr. Bria Liu DO Referring Provider Active Start: February 06, 2025 Team Status: Inactive Member Role Status Dates Dr. Marlin Lancaster DO Primary Care Provider Active Start: February 12, 2025 End: February 12, 2025 Dr. Marlin Lancaster DO Referring Provider Active Start: February 12, 2025 End: February 12, 2025 Dr. Bria Liu DO Attending Provider Active Start: February 12, 2025 End: February 12, 2025 Care Team (unrecognized sect ion and content) Care Team Personnel Name: MARLIN LANCASTER DO Position: P4 Physician - Primary Care Med Service: Active Provider Member Role: Primary Care Physician Address: Address: [address] [place] [address] Name: Cary Najera Position: Quality Review Member Role: Clinical Trials Systems Administrator Care Team Related Persons Name: GONZALEZ ABBIE Address: [address] [phone] Care Team Personnel Name: MARLIN LANCASTER DO Position: P4 Physician - Primary Care Med Service: Active Provider Member Role: Primary Care Physician Address: Address: [address] [place] [address] Name: Cary Najera Position: Quality Review Member Role: Clinical Trials Systems Administrator Care Team Related Persons Name: ABBIE GONZALEZ Address: Home [address] [place] [phone] Care Team Personnel Name: MARLIN LANCASTER DO Position: P4 Physician - Primary Care Member Role: Primary Care Physician Address: Address: [address] [place] [address] Name: Cary Najera Pawan Position: Quality Review Member Role: Clinical Trials Systems Administrator Care Team Related Persons Name: ABBIE GONZALEZ Address: [address] [place], [place] [id number] Care Team Personnel Name: MARLIN LANCASTER Position: Physician - Primary Care Member Role: Primary Care Physician Address: Address: [address] [place] [address] [facility] [place] [place] [address] Name: Toneharish Cary Villalta Position: Quality Review Member Role: Clinical Trials Systems Administrator Care Team Related Persons Name: ABBIE GONZALEZ Address: [address] [place], [place] [id number] (unrecognized sect ion and content) No Status Records FoundNo Status Records FoundNo Status Records FoundNo Status Records FoundNo Status Records Found INFORMATION SOURCE (unrecogn ized section and content) DATE CREATED AUTHOR 04/22/2024 [facility] ([place]) DATE CREATED AUTHOR AUTHOR'S ORGANIZ ATION 10/06/2024 [facility] DATE CREATED AUTHOR AUTHOR'S ORGANIZ ATION 12/26/2024 [facility] DATE CREATED AUTHOR AUTHOR'S ORGANIZ ATION 02/14/2025 [facility] DATE CREATED AUTHOR AUTHOR'S ORGANIZ ATION 04/25/2025 [facility] Source Comments (unrecognize d section and content) In the event this informatio n is protected by the Federal Confidentiality of Alcohol and Drug Abuse Patient Records regulations: The Federal rules restrict any use of the information to criminally investigate or prosecute any alcohol or drug abuse patient.[facility] the event this information is protected by the Federal Confidentiality of Alcohol and Drug Abuse Patient Records regulations: The Federal rules restrict any use of the information to criminally investigate or prosecute any alcohol or drug abuse patient.[facility] the event this information is protected by the Federal Confidentiality of Alcohol and Drug Abuse Patient Records regulations: The Federal rules restrict any use of the information to criminally investigate or prosecute any alcohol or drug abuse patient.[facility] the event this information is protected by the Federal Confidentiality of Alcohol and Drug Abuse Patient Records regulations: The Federal rules restrict any use of the information to criminally investigate or prosecute any alcohol or drug abuse patient.[facility] the event this information is protected by the Federal Confidentiality of Alcohol and Drug Abuse Patient Records regulations: The Federal rules restrict any use of the information to criminally investigate or prosecute any alcohol or drug abuse patient.[facility] Reason for Visit (unrecogniz ed section and content) Reason Comments Appointment Reason Comments New Patient Reason Comments Clinical Trials Systems Administrator - Other Introduction Reason Comments Established Patient Reason Comments Clinical Trials Systems Administrator - Other Follow-up Goals (unrecognized section and content) Goals may be documented in a n alternate section FOR RECORDS PERTAINING TO PATIENTS WHO ARE OR HAVE BEEN ENROLLED IN A CHEMICAL DEPENDENCY/SUBSTANCEABUSE PROGRAM, SOME INFORMATION MAY BE OMITTED. This clinical summary was aggregated from multiple sources. Caution should be exercised in using it in the provision of clinical care. This summary normalizes information from multiple sources, and as a consequence, information in this document may materially change the coding, format and clinical context of patient data. In addition, data may be omitted in some cases. CLINICAL DECISIONS SHOULD BE BASED ON THE PRIMARY CLINICAL RECORDS. [facility] [facility]. provides no warranty or guarantee of the accuracy or completeness of information in this document.
== END | disposition home or self-care (01) ==
PROVIDERS: PCP Student in an Organized Health Care Education/Training Program; Referring Provider Student in an Organized Health Care Education/Training Program; Visit Provider Student in an Organized Health Care Education/Training Program
DX: C34.91 Malignant neoplasm of unspecified part of right bronchus or lung (principal); C77.0 Secondary and unspecified malignant neoplasm of lymph nodes of head, face and neck
CPT/HCPCS: 70490; 71250